=== PATIENT | male | born 1940 | race Caucasian/White ===

== ENCOUNTER 2016-06-08 23:27 | Emergency (ER) | payer MEDICARE ==
[2016-06-08 23:38] VITALS: BP 182/73; PULSE 66; RESP 18; TEMP 98
[2016-06-09] MEDS ORDERED: OXYMETAZOLINE 0.05% NASL SPRAY 15 ML NASAL STA
--- NOTE | 2016-06-09 00:04 | ED ---
General Adult HPI - General Chief complaint: ENT Stated complaint: Nosebleed Time Seen by Provider: 06/08/16 23:40 Source: patient, RN notes reviewed Mode of arrival: wheelchair Limitations: no limitations - History of Present Illness Initial comments: This is a 75yo male who presents with epistaxis [id number]. Patient states this was not provoked and patient gets nosebleeds proximately once per week. Patient is not on any anticoagulants. Patient states the bleeding has been steady, but not heavy. PAtient has been applying pressure to this area. Patient denies any headache, shortness of breath, nausea/vomiting/diarrhea. Patient denies any recent fever/chills, chest pain, hematuria, visual changes, abdominal pain, cough, or congestion. - Related Data Home Medications Medication Instructions Recorded Confirmed Diltiazem Cd [Cardizem CD] 240 mg PO DAILY 07/28/15 04/19/16 Nebivolol HCl [Bystolic] 10 mg PO DAILY 07/28/15 04/19/16 Fluticasone Nasal [place] [Flonase 2 spr EA NOSTRIL BID 04/19/16 04/19/16 Nasal [place]] Glimepiride [Amaryl] 4 mg PO BID 04/19/16 04/19/16 Multivitamins, Thera [Multivitamin] 1 tab PO DAILY 04/19/16 04/19/16 Omeprazole 20 mg PO BID 04/19/16 04/19/16 Allergies Allergy/AdvReac Type Severity Reaction Status Date / Time No Known Allergies Allergy Verified 06/08/16 23:38 Review of Systems ROS Statement: Those systems with pertinent positive or pertinent negative responses have been documented in the HPI. ROS Other: All systems not noted in ROS Statement are negative. Past Medical History Past Medical History: Diabetes Mellitus, Hypertension, Rheumatoid Arthritis (RA) Additional Past Medical History / Comment(s): bladder cancer and skin cancer History of Any Multi-Drug Resistant Organisms: None Reported Past Surgical History: Tonsillectomy Additional Past Surgical History / Comment(s): pt. states he has had skin cancer removed from his face, appendectomy, bladder cancer with cystoscopy, colonoscopy, tonsillectomy and adenoidectomy. Past Anesthesia/Blood Transfusion Reactions: No Reported Reaction Past Psychological History: No Psychological Hx Reported Smoking Status: Never smoker Past Alcohol Use History: None Reported Additional Past Alcohol Use History / Comment(s): pt. states he drinks beer every couple weeks Past Drug Use History: None Reported - Past Family History Mother Family Medical History: Cancer Additional Family Medical History / Comment(s): breast cancer Father Family Medical History: Coronary Artery Disease (CAD), Myocardial Infarction ([place] ) Brother(s) Family Medical History: No Reported History Daughter(s) Family Medical History: No Reported History General Exam - General Exam Comments Initial Comments: General: The patient is awake and alert, in no distress, and does not appear acutely ill. Eyes: Pupils are equal, round and reactive to light, extra-ocular movements are intact. No nystagmus. There is normal conjunctiva bilaterally. No signs of icterus Ears: TMs pink and pearly with intact cone of light bilaterally, normal external ear canals NOse: mild epistaxis to the right nasal turbinate, no obvious source of bleeding , no epistaxis to the left nasal turbinate. Mouth/Throat: mild bloody drainage to the posterior pharynx from epistaxis, no erythema or tonsiallar enlargement. Moist mucus membranes and no oral lesions. Neck: neck supple, no masses, no tenderness, no jvd Cardiovascular: regular rate and rhythm, normal S1/S2. no murmurs/rubs/gallops Lungs: clear to auscultation bilaterally, breath sounds equal, no wheezes/ rhonchi/rales Musculoskeletal: Normal ROM, no tenderness. Strength 5/5. Sensation intact. Pulses equal bilaterally 2+. Neurological: A&O x 3. CN II-XII intact, There are no obvious motor or sensory deficits. Coordination appears grossly intact. Speech is normal. Psychiatric: Cooperative, appropriate mood & affect, normal judgment. Limitations: no limitations Course Vital Signs 06/08/16 23:34 Temperature 98.0 F Pulse Rate 66 Respiratory 18 Rate Blood Pressure 182/73 O2 Sat by Pulse 96 Oximetry Medical Decision Making - Medical Decision Making This is a 75yo male who presents with epistaxis [id number]. Patient is not on any blood thinners. On physical exam there is blood present in the right nasal turbinate and mild bloody drainage to the posterior pharynx. Patient is neurologically intact. A nasal clamp was applied after Afrin nasal spray. After 20 minutes the bleeding was stopped. On physical exam of the nose there was no active bleeding. Patient was observed for another 20 minutes to ensure hemostasis was achieved. Discussed that if bleeding reoccurs apply steady pressure to the nose for at least 20min and respray with afrin. Discussed avodiance of nasal trauma or blowing the nose. Please use Afrin as prescribed: 2 sprays to affected nostril twice daily. Do not use longer than 2 days. Discussed rebound effect after 2 days of use. Discussed that patient should follow up with PCP in one to 2 days or return to the [facility] for any worsening symptoms or for any further concerns. Patient was receptive to this plan and patient will be discharged home. Disposition Clinical Impression: Epistaxis Disposition: HOME SELF-CARE Condition: Good Instructions: Nosebleed (ED) Additional Instructions: If bleeding reoccurs apply steady pressure to the nose with nasal clamp for at least 20 minutes, respray the nose with afrin and use clamp again for at least 20 min. Come back to [facility] if bleeding does not stop after these attempts. Please use Afrin as prescribed: 2 sprays to affected nostril twice daily. Do not use longer than 2 days. Please use medication as discussed. Please follow-up with family doctor in the next 2 days of symptoms have not improved. Please return to emergency room if the symptoms increase or worsen or for any other concerns. Referrals: Shelley Partida DO [Primary Care Provider] - 1-2 days Time of Disposition: 00:57
== END 2016-06-09 01:10 | disposition home or self-care (01) ==
LOC: EC 23:27
DX: R04.0 Epistaxis (principal); E11.9 Type 2 diabetes mellitus without complications; I10 Essential (primary) hypertension; Z79.84 Long term (current) use of oral hypoglycemic drugs; Z79.899 Other long term (current) drug therapy
CPT/HCPCS: 99283

== ENCOUNTER 2016-06-14 08:53 | Inpatient (IN) | payer MEDICARE ==
[2016-06-14] MEDS ORDERED: ONDANSETRON 4 MG/2 ML VIAL IVP STA (09:38)
[2016-06-14] MEDS ORDERED: SODIUM CHLORIDE 0.9% 1,000 ML IV STA ×2 (09:38)
--- NOTE | 2016-06-14 09:42 | ED ---
Weakness HPI - General Chief complaint: Weakness Stated complaint: weakness Time Seen by Provider: 06/14/16 09:20 Source: patient, family, RN notes reviewed, old records reviewed Mode of arrival: wheelchair Limitations: no limitations - History of Present Illness Initial comments: This is a 75-year-old male with a history of vocal cord paralysis recent nosebleeds who is here for his third visit in the last week complaining of not feeling well. He's had cough with yellow phlegm generalized weakness decreased oral intake. He states food does not taste good. He's also had nausea vomiting and some diarrhea over last 2 days. No overt chest pain he denies any fevers chills or sweats however. No focal weakness was upper or lower extremities just generalized weakness. MD Complaint: generalized weakness - Related Data Home Medications Medication Instructions Recorded Confirmed Diltiazem Cd [Cardizem CD] 240 mg PO DAILY 07/28/15 06/14/16 Nebivolol HCl [Bystolic] 10 mg PO DAILY 07/28/15 06/14/16 Fluticasone Nasal [place] [Flonase 2 spr EA NOSTRIL BID 04/19/16 06/14/16 Nasal [place]] Glimepiride [Amaryl] 4 mg PO BID 04/19/16 06/14/16 Multivitamins, Thera [Multivitamin] 1 tab PO DAILY 04/19/16 06/14/16 Omeprazole 20 mg PO BID 04/19/16 06/14/16 Allergies Allergy/AdvReac Type Severity Reaction Status Date / Time No Known Allergies Allergy Verified 06/14/16 09:04 Review of Systems ROS Statement: Those systems with pertinent positive or pertinent negative responses have been documented in the HPI. ROS Other: All systems not noted in ROS Statement are negative. Past Medical History Past Medical History: Diabetes Mellitus, Hypertension, Rheumatoid Arthritis (RA) Additional Past Medical History / Comment(s): bladder cancer and skin cancer History of Any Multi-Drug Resistant Organisms: None Reported Past Surgical History: Tonsillectomy Additional Past Surgical History / Comment(s): pt. states he has had skin cancer removed from his face, appendectomy, bladder cancer with cystoscopy, colonoscopy, tonsillectomy and adenoidectomy. Past Anesthesia/Blood Transfusion Reactions: No Reported Reaction Past Psychological History: No Psychological Hx Reported Smoking Status: Never smoker Past Alcohol Use History: None Reported Additional Past Alcohol Use History / Comment(s): pt. states he drinks beer every couple weeks Past Drug Use History: None Reported - Past Family History Mother Family Medical History: Cancer Additional Family Medical History / Comment(s): breast cancer Father Family Medical History: Coronary Artery Disease (CAD), Myocardial Infarction ([place] ) Brother(s) Family Medical History: No Reported History Daughter(s) Family Medical History: No Reported History General Exam - General Exam Comments Initial Comments: This is a well-developed well-nourished awake alert oriented 3 male Limitations: no limitations General appearance: alert, in no apparent distress, lethargic Head exam: Present: atraumatic, normocephalic, normal inspection Eye exam: Present: normal appearance, PERRL, EOMI. Absent: scleral icterus, conjunctival injection, periorbital swelling ENT exam: Present: mucous membranes dry Neck exam: Present: normal inspection. Absent: tenderness, meningismus, lymphadenopathy Respiratory exam: Present: normal lung sounds bilaterally. Absent: respiratory distress, wheezes, rales, rhonchi, stridor Cardiovascular Exam: Present: regular rate, normal rhythm, normal heart sounds. Absent: systolic murmur, diastolic murmur, rubs, gallop, clicks GI/Abdominal exam: Present: soft, normal bowel sounds. Absent: distended, tenderness, guarding, rebound, rigid Extremities exam: Present: normal inspection, full ROM, normal capillary refill. Absent: tenderness, pedal edema, joint swelling, calf tenderness Back exam: Present: normal inspection Neurological exam: Present: alert, oriented X3, CN II-XII intact Psychiatric exam: Present: normal affect, normal mood Skin exam: Present: warm, dry, intact, normal color. Absent: rash Course Vital Signs 06/14/16 06/14/16 06/14/16 08:55 09:42 09:54 Temperature 98.7 F Pulse Rate 88 89 Pulse Rate [ 86 [place] ] Respiratory 15 Rate Blood Pressure 163/74 143/78 O2 Sat by Pulse 96 95 Oximetry 06/14/16 06/14/16 06/14/16 10:57 11:57 12:58 Temperature Pulse Rate 85 81 97 Pulse Rate [ [place] ] Respiratory 18 16 18 Rate Blood Pressure 150/69 142/70 107/53 O2 Sat by Pulse 989 H 95 99 Oximetry 06/14/16 14:23 Temperature Pulse Rate 82 Pulse Rate [ [place] ] Respiratory 16 Rate Blood Pressure 170/88 O2 Sat by Pulse 99 Oximetry EKG Findings - EKG Results: EKG: interpreted by ANGELICA, sinus rhythm (Sinus rhythm of 90 [place] interval 186 mormonism 96 QT/QTC of 394/[address]-T wave changes question will anterior changes noted) Medical Decision Making - Medical Decision Making I did discuss the findings with the patient and family members. Also with the admitting physician. Patient will be admitted - Lab Data Result diagrams: 06/14/16 09:50 06/14/16 09:50 Lab Results 06/14/16 06/14/16 06/14/16 Range/Units 09:50 09:50 09:50 WBC 1.4 L* (3.8-10.6) k/uL RBC 2.79 L (4.30-5.90) m/uL Hgb 9.4 L D (13.0-17.5) gm/dL Hct 26.8 L (39.0-53.0) % MCV 96.0 (80.0-100.0) fL MCH 33.6 (25.0-35.0) pg MCHC 35.0 (31.0-37.0) g/dL RDW 19.5 H (11.5-15.5) % Plt Count 7 L* D (150-450) k/uL Neutrophils % 50 % Lymphocytes % 40 % Monocytes % 4 % Eosinophils % 3 % Basophils % 1 % Neutrophils # 0.7 L (1.3-7.7) k/uL Lymphocytes # 0.6 L (1.0-4.8) k/uL Monocytes # 0.1 (0-1.0) k/uL Eosinophils # 0.0 (0-0.7) k/uL Basophils # 0.0 (0-0.2) k/uL Manual Slide Review Performed Polychromasia Present Hyperchromasia Moderate Poikilocytosis Moderate Anisocytosis Slight Macrocytosis Slight PT (9.0-12.0) sec INR (<1.1) APTT (22.0-30.0) sec Sodium (137-145) mmol/L Potassium (3.5-5.1) mmol/L Chloride (98-107) mmol/L Carbon Dioxide (22-30) mmol/L Anion Gap mmol/L BUN (9-20) mg/dL Creatinine (0.66-1.25) mg/dL Est GFR (MDRD) Af Amer (>60 ml/min/1.73 sqM) Est GFR (MDRD) Non-Af (>60 ml/min/1.73 sqM) Glucose (74-99) mg/dL POC Glucose (mg/dL) (75-99) mg/dL POC Glu Forensic Sergeant ID Plasma Lactic Acid Jordin (0.7-2.0) mmol/L Calcium (8.4-10.2) mg/dL Magnesium (1.6-2.3) mg/dL Total Bilirubin (0.2-1.3) mg/dL AST (17-59) U/L ALT (21-72) U/L Alkaline Phosphatase (38-126) U/L Total Creatine Kinase 62 (55-170) U/L CK-MB (CK-2) 1.2 (0.0-2.4) ng/mL CK-MB (CK-2) Rel Index 1.9 Troponin I <0.012 (0.000-0.034) ng/mL NT-Pro-B Natriuret Pep 432 pg/mL Total Protein (6.3-8.2) g/dL Albumin (3.5-5.0) g/dL Urine Color Urine Appearance (Clear) Urine pH (5.0-8.0) Ur Specific [place] (1.001-1.035) Urine Protein (Negative) Urine Glucose (UA) (Negative) Urine Ketones (Negative) Urine Blood (Negative) Urine Nitrate (Negative) Urine Bilirubin (Negative) Urine Urobilinogen (<2.0) mg/dL Ur Leukocyte Esterase (Negative) Urine RBC (0-5) /hpf Urine WBC (0-5) /hpf Urine Mucus (None) /hpf 06/14/16 06/14/16 06/14/16 Range/Units 09:50 09:50 09:50 WBC (3.8-10.6) k/uL RBC (4.30-5.90) m/uL Hgb (13.0-17.5) gm/dL Hct (39.0-53.0) % MCV (80.0-100.0) fL MCH (25.0-35.0) pg MCHC (31.0-37.0) g/dL RDW (11.5-15.5) % Plt Count (150-450) k/uL Neutrophils % % Lymphocytes % % Monocytes % % Eosinophils % % Basophils % % Neutrophils # (1.3-7.7) k/uL Lymphocytes # (1.0-4.8) k/uL Monocytes # (0-1.0) k/uL Eosinophils # (0-0.7) k/uL Basophils # (0-0.2) k/uL Manual Slide Review Polychromasia Hyperchromasia Poikilocytosis Anisocytosis Macrocytosis PT 13.6 H (9.0-12.0) sec INR 1.4 (<1.1) APTT 22.8 (22.0-30.0) sec Sodium 144 (137-145) mmol/L Potassium 3.3 L (3.5-5.1) mmol/L Chloride 104 (98-107) mmol/L Carbon Dioxide 25 (22-30) mmol/L Anion Gap 15 mmol/L BUN 35 H (9-20) mg/dL Creatinine 1.07 (0.66-1.25) mg/dL Est GFR (MDRD) Af Amer >60 (>60 ml/min/1.73 sqM) Est GFR (MDRD) Non-Af >60 (>60 ml/min/1.73 sqM) Glucose 190 H (74-99) mg/dL POC Glucose (mg/dL) (75-99) mg/dL POC Glu Forensic Sergeant ID Plasma Lactic Acid Jordin 2.0 (0.7-2.0) mmol/L Calcium 9.0 (8.4-10.2) mg/dL Magnesium 1.6 (1.6-2.3) mg/dL Total Bilirubin 1.2 (0.2-1.3) mg/dL AST 30 (17-59) U/L ALT 29 (21-72) U/L Alkaline Phosphatase 80 (38-126) U/L Total Creatine Kinase (55-170) U/L CK-MB (CK-2) (0.0-2.4) ng/mL CK-MB (CK-2) Rel Index Troponin I (0.000-0.034) ng/mL NT-Pro-B Natriuret Pep pg/mL Total Protein 6.5 (6.3-8.2) g/dL Albumin 3.9 (3.5-5.0) g/dL Urine Color Urine Appearance (Clear) Urine pH (5.0-8.0) Ur Specific [place] (1.001-1.035) Urine Protein (Negative) Urine Glucose (UA) (Negative) Urine Ketones (Negative) Urine Blood (Negative) Urine Nitrate (Negative) Urine Bilirubin (Negative) Urine Urobilinogen (<2.0) mg/dL Ur Leukocyte Esterase (Negative) Urine RBC (0-5) /hpf Urine WBC (0-5) /hpf Urine Mucus (None) /hpf 06/14/16 06/14/16 Range/Units 09:52 11:41 WBC (3.8-10.6) k/uL RBC (4.30-5.90) m/uL Hgb (13.0-17.5) gm/dL Hct (39.0-53.0) % MCV (80.0-100.0) fL MCH (25.0-35.0) pg MCHC (31.0-37.0) g/dL RDW (11.5-15.5) % Plt Count (150-450) k/uL Neutrophils % % Lymphocytes % % Monocytes % % Eosinophils % % Basophils % % Neutrophils # (1.3-7.7) k/uL Lymphocytes # (1.0-4.8) k/uL Monocytes # (0-1.0) k/uL Eosinophils # (0-0.7) k/uL Basophils # (0-0.2) k/uL Manual Slide Review Polychromasia Hyperchromasia Poikilocytosis Anisocytosis Macrocytosis PT (9.0-12.0) sec INR (<1.1) APTT (22.0-30.0) sec Sodium (137-145) mmol/L Potassium (3.5-5.1) mmol/L Chloride (98-107) mmol/L Carbon Dioxide (22-30) mmol/L Anion Gap mmol/L BUN (9-20) mg/dL Creatinine (0.66-1.25) mg/dL Est GFR (MDRD) Af Amer (>60 ml/min/1.73 sqM) Est GFR (MDRD) Non-Af (>60 ml/min/1.73 sqM) Glucose (74-99) mg/dL POC Glucose (mg/dL) 199 H (75-99) mg/dL POC Glu Forensic Sergeant ID Antione Ashley Plasma Lactic Acid Jordin (0.7-2.0) mmol/L Calcium (8.4-10.2) mg/dL Magnesium (1.6-2.3) mg/dL Total Bilirubin (0.2-1.3) mg/dL AST (17-59) U/L ALT (21-72) U/L Alkaline Phosphatase (38-126) U/L Total Creatine Kinase (55-170) U/L CK-MB (CK-2) (0.0-2.4) ng/mL CK-MB (CK-2) Rel Index Troponin I (0.000-0.034) ng/mL NT-Pro-B Natriuret Pep pg/mL Total Protein (6.3-8.2) g/dL Albumin (3.5-5.0) g/dL Urine Color Yellow Urine Appearance Clear (Clear) Urine pH 5.5 (5.0-8.0) Ur Specific [place] 1.016 (1.001-1.035) Urine Protein Trace H (Negative) Urine Glucose (UA) Negative (Negative) Urine Ketones Negative (Negative) Urine Blood Trace H (Negative) Urine Nitrate Negative (Negative) Urine Bilirubin Negative (Negative) Urine Urobilinogen <2.0 (<2.0) mg/dL Ur Leukocyte Esterase Negative (Negative) Urine RBC <1 (0-5) /hpf Urine WBC 1 (0-5) /hpf Urine Mucus Rare H (None) /hpf - Radiology Data Radiology results: report reviewed (I did reveal the imaging and reports no acute findings are seen.), image reviewed Disposition Clinical Impression: Neutropenia, Thrombocytopenia, Failure to thrive, Weakness Disposition: ADMITTED IP TO THIS HOSP Condition: Stable
[2016-06-14 09:59] LABS: Glucose,Whole Blood 199 mg/dL (75-99)
--- NOTE | 2016-06-14 10:13 | XR ---
EXAMINATION TYPE: XR chest 2V DATE OF EXAM: 06/14/2016 10:08 AM COMPARISON: 04/19/2016 HISTORY: 75-year-old male with weakness and shortness of breath today TECHNIQUE: AP and lateral views FINDINGS: Heart remains borderline enlarged. Slightly low lung volumes crowding the vascular markings with stra ndy left greater right bibasilar atelectasis. Calcified hilar and right paratracheal lymph nodes comp atible with prior granulomatous disease. No consolidation or pleural effusion. IMPRESSION: Stable exam with prior granulomatous disease, some hypoventilatory changes, and strandy atelectasis a t the lung bases. No acute process seen.
[2016-06-14 10:16] LABS: ALT 29 U/L (21-72); AST 30 U/L (17-59); Alkaline Phosphatase 80 U/L (38-126); Anion Gap 15 mmol/L; Anisocytosis Slight; Basophils % (A) 1 %; Blood Urea Nitrogen 35 mg/dL (9-20); CH 36.2; Carbon Dioxide 25 mmol/L (22-30); Chloride 104 mmol/L (98-107); Eosinophils % (A) 3 %; Glucose 190 mg/dL (74-99); HCT 26.8 % (39.0-53.0); HDW 4.06; Hyperchromasia Moderate; Immature Gran Flag Marked; Luc # (Auto) 0.03; Luc % (Auto) 2; Lymphocytes # (A) 0.6 k/uL (1.0-4.8); Lymphocytes % (A) 40 %; MCH 33.6 pg (25.0-35.0); Macrocytosis Slight; Magnesium 1.6 mg/dL (1.6-2.3); Mean Platelet Volume 8.3; Monocytes # (A) 0.1 k/uL (0-1.0); Monocytes % (A) 4 %; Neutrophils # (A) 0.7 k/uL (1.3-7.7); Neutrophils % (A) 50 %; Non-African American GFR(MDRD) >60 (>60 ml/min/1.73 sqM); Poikilocytosis Moderate; Potassium 3.3 mmol/L (3.5-5.1); RBC 2.79 m/uL (4.30-5.90); RDW 19.5 % (11.5-15.5); Sodium 144 mmol/L (137-145); Total Bilirubin 1.2 mg/dL (0.2-1.3); Total Protein 6.5 g/dL (6.3-8.2); WBC (Perox) 1.42
[2016-06-14 10:19] LABS: HGB 9.4 gm/dL (13.0-17.5)
[2016-06-14 10:21] LABS: WBC 1.4 k/uL (3.8-10.6)
[2016-06-14 10:27] LABS: Manual Review Performed
[2016-06-14 10:28] LABS: Polychromasia Present
[2016-06-14 10:50] LABS: Troponin I <0.012 ng/mL (0.000-0.034)
[2016-06-14 10:54] LABS: INR 1.4 (<1.1); Partial Thromboplastin Time 22.8 sec (22.0-30.0); Prothrombin Time 13.6 sec (9.0-12.0)
[2016-06-14 10:56] LABS: Creatine Kinase 62 U/L (55-170)
[2016-06-14 11:10] LABS: Creatine Kinase MB 1.2 ng/mL (0.0-2.4)
[2016-06-14 12:05] LABS: Appearance,Urine Clear (Clear); Bilirubin,Urine Negative (Negative); Glucose,Urine (UA) Negative (Negative); Ketones,Urine Negative (Negative); Leukocyte Esterase,Urine Negative (Negative); Mucus,Urine Rare /hpf; Nitrite,Urine Negative (Negative); PH, Urine 5.5 (5.0-8.0); Particle Count 1346; Protein,Urine Trace (Negative); RBC,Urine <1 /hpf (0-5); Specific Gravity,Urine 1.016 (1.001-1.035); UA Billing (MACRO vs. MICRO) MICRO; Urobilinogen,Urine <2.0 mg/dL (<2.0); WBC,Urine 1 /hpf (0-5)
--- NOTE | 2016-06-14 13:43 | CT ---
EXAMINATION TYPE: CT brain wo con DATE OF EXAM: 06/14/2016 1:35 PM COMPARISON: 02/04/2016 HISTORY: 75-year-old male with neck pain and headache after fall on ice TECHNIQUE: Examination was done in axial plane without intravenous contrast. Coronal and sagittal reconstructio ns performed. CT DLP: 1328.24 mGycm Automated exposure control for dose reduction was used. FINDINGS: There is no evidence of acute intracranial hemorrhage, acute ischemic changes, mass, mass-effect, or extra-axial fluid collection. There is no effacement of cerebral sulci or basal subarachnoid cister ns. There is no hydrocephalus. There is no midline shift. Swenson-white matter distinction is preserv ed. 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 Mild patchy periventricular white matte r hypodensity suggests changes of chronic small vessel ischemic disease. Incidental megacisterna magn a. Paranasal sinuses show minimal mucosal thickening in the left maxillary sinus. Mastoid air cells well pneumatized. Orbits and globes are intact. IMPRESSION: No acute intracranial abnormality seen. 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
[2016-06-14] MEDS ORDERED: NALOXONE 0.4 MG/ML 1 ML VIAL IV PRN (14:52)
[2016-06-14] MEDS: ACETAMINOPHEN TAB 325 MG TAB PO PRN (18:12)
[2016-06-14] MEDS: GLIMEPIRIDE 4 MG TAB PO SCH (18:54)
[2016-06-14] MEDS: PANTOPRAZOLE 40 MG TABLET PO SCH (18:54)
[2016-06-14] MEDS: FLUTICASONE 50MCG/SPRAY NASAL 16GM EA NOSTRIL SCH (20:06)
[2016-06-14] MEDS: SODIUM CHLORIDE 0.9% 1,000 ML IV SCH (20:07)
[2016-06-14 20:16] LABS: Glucose,Whole Blood 195 mg/dL (75-99)
[2016-06-15] MEDS: SODIUM CHLORIDE 0.9% 1,000 ML IV SCH ×2 (06:16→21:11)
[2016-06-15 08:11] LABS: Glucose,Whole Blood 150 mg/dL (75-99)
[2016-06-15] MEDS: GLIMEPIRIDE 4 MG TAB PO SCH ×2 (08:18→17:40)
[2016-06-15] MEDS: PANTOPRAZOLE 40 MG TABLET PO SCH ×2 (08:18→17:40)
[2016-06-15] MEDS: FLUTICASONE 50MCG/SPRAY NASAL 16GM EA NOSTRIL SCH ×2 (08:19→21:11)
[2016-06-15] MEDS: NEBIVOLOL 5 MG TAB PO SCH (08:19)
[2016-06-15] MEDS: DILTIAZEM CD 240 MG CAP.ER.24H PO SCH (08:19)
[2016-06-15] MEDS ORDERED: ONDANSETRON 4 MG/2 ML VIAL IVP PRN (10:42)
--- NOTE | 2016-06-15 11:00 | P.HPIM ---
History of Present Illness H&P Date: 06/15/16 Chief Complaint: Generalized weakness with nausea vomiting and diarrhea This is a 75-year-old male, patient of [facility]. He has a known past medical history of bladder cancer in which she received chemotherapy about 3 years ago. He also has a known history of vocal cord paralysis in which she required surgery, diabetes mellitus, hypertension and rheumatoid arthritis. Patient presents to the emergency room after having nausea vomiting and diarrhea over the last 3 days. He also notes that since this past summer he's been dealing with weakness and easy bruising. On admission patient was found to have a white count of 1.4 hemoglobin of 9.4 and platelets of 7. Also evidence of dehydration with a BUN of 35 and creatinine of 1.07. Patient denies any previous history of thrombocytopenia or leukopenia. Denies any bleeding disorders. He does report having a bloody nose on June 09 he came into the emergency room for treatment. His vomiting and diarrhea have resolved. Last episodes were last night. Patient denies any fevers chills or sweats. Denies any chest pain or shortness of breath. Denies any burning with urination. Patient reports decrease in appetite due to the vocal cord surgery affecting his taste buds. Patient reports having colonoscopy a few months ago reporting is normal. Review of Systems Please refer to HPI otherwise unremarkable Past Medical History Past Medical History: Cancer, Diabetes Mellitus, GERD/Reflux, Hypertension, Pneumonia, Prostate Disorder, Rheumatoid Arthritis (RA), Sleep Apnea/CPAP/BIPAP Additional Past Medical History / Comment(s): bladder cancer HAD CHEMO TX AT [facility]. skin cancer REMOVED, SHINGLES- 20 YEARS AGO, DOES'NT USE HIS CPAP MACHINE ANYMORE. ?"IRREG HEART BEATOLD BY ONE DR HE HAD AND ANOTHER DR TOLD HIM HE DID'NT" History of Any Multi-Drug Resistant Organisms: None Reported Past Surgical History: Tonsillectomy Additional Past Surgical History / Comment(s): pt. states he has had skin cancer removed from his face, appendectomy, bladder cancer with cystoscopy, colonoscopy, tonsillectomy and adenoidectomy.SX FOR RT VOCAL CORD PARALYSIS.PT STATED HAD FLU/PNE/SHINGLES/TDAP BUT NOT SURE OF DATES-DR OFFICE CLOSED AT TIME OF THIS ADMIT. Past Anesthesia/Blood Transfusion Reactions: No Reported Reaction Past Psychological History: No Psychological Hx Reported Smoking Status: Never smoker Past Alcohol Use History: Occasional Additional Past Alcohol Use History / Comment(s): pt. states he drinks beer every couple weeks Past Drug Use History: None Reported - Past Family History Mother Family Medical History: Cancer Additional Family Medical History / Comment(s): breast cancer Father Family Medical History: Coronary Artery Disease (CAD), Myocardial Infarction (RI ) Brother(s) Family Medical History: No Reported History Daughter(s) Family Medical History: No Reported History Medications and Allergies Home Medications Medication Instructions Recorded Confirmed Type Diltiazem Cd [Cardizem CD] 240 mg PO DAILY 07/28/15 06/14/16 History Nebivolol HCl [Bystolic] 10 mg PO DAILY 07/28/15 06/14/16 History Fluticasone Nasal [place] [Flonase 2 spr EA NOSTRIL BID 04/19/16 06/14/16 History Nasal [place]] Glimepiride [Amaryl] 4 mg PO BID 04/19/16 06/14/16 History Multivitamins, Thera [Multivitamin] 1 tab PO DAILY 04/19/16 06/14/16 History Omeprazole 20 mg PO BID 04/19/16 06/14/16 History Allergies Allergy/AdvReac Type Severity Reaction Status Date / Time No Known Allergies Allergy Verified 06/14/16 09:04 Physical Exam Vitals: Vital Signs Temp Pulse Pulse Resp BP Pulse Ox 06/15/16 09:19 94 L 06/15/16 07:00 97.8 F 79 20 179/82 94 L 06/15/16 06:00 93 L 06/14/16 23:00 98.8 F 16 144/67 98 06/14/16 16:48 99.9 F H 82 18 139/63 99 Intake and Output 06/14/16 06/15/16 06/15/16 22:59 06:59 14:59 Intake Total 320 640 Balance 320 640 Intake: IV 320 640 Sodium Chloride 0.9% 1, 320 640 000 ml @ 80 mls/hr IV . [id number] [facility] Rx#:[id number] Other: Voiding Method Toilet Toilet Toilet Urinal Urinal # Voids 1 # Bowel Movements 1 Head normocephalic Neck supple Lungs clear to auscultation bilaterally no wheezing or crackles Heart regular rate and rhythm S1-S2, no rub or gallop Abdomen is soft nontender nondistended positive bowel sounds no hepatosplenomegaly Extremities no edema Neuro alert and orientated to 3 Results CBC & Chem 7: 06/14/16 09:50 06/14/16 09:50 Labs: Abnormal Lab Results - Last 24 Hours (Table) 06/14/16 06/15/16 Range/Units 20:11 08:07 POC Glucose (mg/dL) 195 H 150 H (75-99) mg/dL Thrombosis Risk Factor Assmnt - Choose All That Apply Any of the Below Risk Factors Present?: Yes Each Factor Represents 1 point: Obesity (BMI >25) Other Risk Factors: Yes Each Risk Factor Represents 3 Points: Age 75 years or older Other congenital or acquired thrombophilia - If yes, enter type in comment: No Thrombosis Risk Factor Assessment Total Risk Factor Score: 4 Thrombosis Risk Factor Assessment Level: Moderate Risk Assessment and Plan Plan: 1. Pancytopenia exact etiology unclear. Patient will be evaluated by hematology. Patient does have a previous history of bladder cancer with chemo treatment about 3 years ago. White count 1.4, hemoglobin 9.4 platelets of 7 on admission 2. Nausea vomiting and diarrhea 3 days. Symptoms have resolved. Continue the Zofran as needed. Possibly due to a gastroenteritis. Continue to monitor. LFTs are normal. Check amylase and lipase. 3. Generalized weakness: Multifactorial due to the vomiting and diarrhea and pancytopenia. Computed tomography scan of the brain shows no acute intracranial abnormality. 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 Consult PT OT 4. Headache reported in the emergency room now resolved. Computed tomography scan of the brain no acute 5. Essential hypertension with accelerated hypertension this morning. Blood pressure taken before medications given. We'll have blood pressure repeated. Continue his Bystolic and Cardizem 6. Diabetes mellitus type 2 continue the Amaryl with sliding scale coverage 7. 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 Surgery completed in fall 2015. Patient reports there are no findings cancer. 8. History of rheumatoid arthritis GI prophylaxis Protonix and DVT prophylaxis SCDs Time with Patient: Greater than 30 (Greater than 50% of the total time spent in counseling and coordination of care.I performed an examination of the patient and discussed their management with the physician Public Message Service Supervisor. I have reviewed the Physician Public Message Service Supervisor's notes and agree with the documented findings and plan of care)
[2016-06-15 11:17] LABS: Anisocytosis Slight; CH 35.5; CHCM 36.3; HCT 22.5 % (39.0-53.0); HDW 4.06; Hyperchromasia Slight; Immature Gran Flag Marked; MCH 35.1 pg (25.0-35.0); MCHC 35.6 g/dL (31.0-37.0); MCV 98.7 fL (80.0-100.0); Macrocytosis Slight; Poikilocytosis Moderate; RBC 2.28 m/uL (4.30-5.90); RDW 19.6 % (11.5-15.5)
[2016-06-15 11:30] LABS: WBC 1.3 k/uL (3.8-10.6)
[2016-06-15 11:46] LABS: ALT 29 U/L (21-72); AST 22 U/L (17-59); Alkaline Phosphatase 64 U/L (38-126); Anion Gap 8 mmol/L; Blood Urea Nitrogen 24 mg/dL (9-20); Calcium 8.2 mg/dL (8.4-10.2); Carbon Dioxide 28 mmol/L (22-30); Chloride 106 mmol/L (98-107); Glucose 146 mg/dL (74-99); Non-African American GFR(MDRD) >60 (>60 ml/min/1.73 sqM); Potassium 3.3 mmol/L (3.5-5.1); Sodium 142 mmol/L (137-145); Total Bilirubin 0.8 mg/dL (0.2-1.3); Total Protein 5.5 g/dL (6.3-8.2)
[2016-06-15] MEDS ORDERED: PHYTONADIONE ORAL 5 MG/5 ML ORAL.SYRG PO STA (12:25)
--- NOTE | 2016-06-15 12:31 | P.PN ---
Subjective Principal diagnosis: Consulted for pancytopenia Pt was not seen but Nursing contacted Hematology with critical labs. Orders given and multiple labs have been ordered. Pt will be seen in am for formal consult. Objective - Vital Signs Vital signs: Vital Signs Temp 97.8 F 06/15/16 07:00 Pulse 79 06/15/16 07:00 Resp 20 06/15/16 07:00 BP 179/82 06/15/16 07:00 Pulse Ox 94 L 06/15/16 09:19 Intake & Output 06/14/16 06/15/16 06/15/16 18:59 06:59 18:59 Intake Total 960 Balance 960 Intake: IV 960 Sodium Chloride 0.9% 1, 960 000 ml @ 80 mls/hr IV . [id number] [facility] Rx#:[id number] Other: Voiding Method Urinal Toilet Toilet Urinal Urinal # Voids 1 # Bowel Movements 1 - Labs CBC & Chem 7: 06/15/16 10:57 06/15/16 10:57 Labs: Abnormal Lab Results - Last 24 Hours (Table) 06/14/16 06/15/16 06/15/16 Range/Units 20:11 08:07 10:57 WBC 1.3 L* (3.8-10.6) k/uL RBC 2.28 L (4.30-5.90) m/uL Hgb 8.0 L (13.0-17.5) gm/dL Hct 22.5 L (39.0-53.0) % MCH 35.1 H (25.0-35.0) pg RDW 19.6 H (11.5-15.5) % Plt Count 5 L* (150-450) k/uL Potassium (3.5-5.1) mmol/L BUN (9-20) mg/dL Glucose (74-99) mg/dL POC Glucose (mg/dL) 195 H 150 H (75-99) mg/dL Calcium (8.4-10.2) mg/dL Total Protein (6.3-8.2) g/dL Albumin (3.5-5.0) g/dL 06/15/16 Range/Units 10:57 WBC (3.8-10.6) k/uL RBC (4.30-5.90) m/uL Hgb (13.0-17.5) gm/dL Hct (39.0-53.0) % MCH (25.0-35.0) pg RDW (11.5-15.5) % Plt Count (150-450) k/uL Potassium 3.3 L (3.5-5.1) mmol/L BUN 24 H (9-20) mg/dL Glucose 146 H (74-99) mg/dL POC Glucose (mg/dL) (75-99) mg/dL Calcium 8.2 L (8.4-10.2) mg/dL Total Protein 5.5 L (6.3-8.2) g/dL Albumin 3.1 L (3.5-5.0) g/dL Assessment and Plan (1) Pancytopenia Narrative/Plan: Pt was to be seen by Dr. Quarles in 07/07 for pancytopenia, initial consult. Multiple labs ordered, pt given vit K and platelets. Will see pt in formal consult in AM. Status: Acute
[2016-06-15] MEDS: MULTIVITAMINS, THERA 1 EACH TAB PO SCH (12:52)
[2016-06-15] MEDS: INSULIN LISPRO (humaLOG) 300 UNIT/3 ML VIAL SQ SCH ×3 (13:00→21:11)
[2016-06-15 13:02] LABS: Glucose,Whole Blood 137 mg/dL (75-99)
[2016-06-15 13:32] LABS: Hemoglobin A1C 6.3 % (4.2-6.1)
[2016-06-15 13:45] LABS: Reticulocyte % 4.4 % (0.5-2.0)
[2016-06-15 14:05] LABS: Amylase <30 U/L (30-110)
[2016-06-15 14:55] LABS: Vitamin B12 366 pg/mL
[2016-06-15 14:59] LABS: Add Differential Manual Differential
[2016-06-15 15:02] LABS: Nucleated Red Blood Cells 0 /100 WBC (0-0); Total Cells Counted 100
[2016-06-15 15:03] LABS: Manual Review Performed
[2016-06-15] MEDS: ACETAMINOPHEN TAB 325 MG TAB PO PRN (16:32)
[2016-06-15 16:42] LABS: Glucose,Whole Blood 112 mg/dL (75-99)
[2016-06-15 19:58] LABS: Glucose,Whole Blood 67 mg/dL (75-99)
[2016-06-15 20:20] LABS: Glucose,Whole Blood 66 mg/dL (75-99)
[2016-06-15 21:12] LABS: Glucose,Whole Blood 84 mg/dL (75-99)
[2016-06-16 07:35] LABS: Anisocytosis Slight; CH 35.5; CHCM 36.2; HCT 21.2 % (39.0-53.0); HDW 4.01; HGB 7.4 gm/dL (13.0-17.5); Hyperchromasia Slight; Immature Gran Flag Marked; MCH 34.6 pg (25.0-35.0); MCHC 34.9 g/dL (31.0-37.0); MCV 99.2 fL (80.0-100.0); Macrocytosis Moderate; Mean Platelet Volume 8.1; Poikilocytosis Moderate; RBC 2.14 m/uL (4.30-5.90); RDW 19.9 % (11.5-15.5)
[2016-06-16 07:56] LABS: Glucose,Whole Blood 61 mg/dL (75-99)
[2016-06-16 07:58] LABS: ALT 34 U/L (21-72); AST 29 U/L (17-59); Alkaline Phosphatase 64 U/L (38-126); Anion Gap 11 mmol/L; Blood Urea Nitrogen 22 mg/dL (9-20); Calcium 8.5 mg/dL (8.4-10.2); Carbon Dioxide 25 mmol/L (22-30); Chloride 109 mmol/L (98-107); Glucose 63 mg/dL (74-99); LDH 734 U/L (313-618); Non-African American GFR(MDRD) >60 (>60 ml/min/1.73 sqM); Potassium 3.1 mmol/L (3.5-5.1); Sodium 145 mmol/L (137-145); Total Bilirubin 0.7 mg/dL (0.2-1.3); Total Protein 5.8 g/dL (6.3-8.2)
[2016-06-16 08:09] LABS: Glucose,Whole Blood 60 mg/dL (75-99)
[2016-06-16] MEDS ORDERED: POTASSIUM CHLORIDE ER 20 MEQ TAB.ER PO STA (08:12)
[2016-06-16 08:18] LABS: Free Kappa Lt Chain Qnt, Serum 2.49 mg/dL (0.33 - 1.94); Kappa/Lambda Light Chain Ratio 1.04 (0.26 - 1.65)
[2016-06-16 08:47] LABS: Add Differential Manual Differential
[2016-06-16 08:54] LABS: Nucleated Red Blood Cells 6 /100 WBC (0-0); Total Cells Counted 100; WBC 2.1 k/uL (3.8-10.6)
[2016-06-16 08:54] LABS: Glucose,Whole Blood 106 mg/dL (75-99)
[2016-06-16 08:55] LABS: Polychromasia Present
[2016-06-16 08:56] LABS: Tear Drop Cells Present
[2016-06-16 09:01] LABS: Rheumatoid Factor, Qnt <9 IU/mL (<12)
[2016-06-16] MEDS: INSULIN LISPRO (humaLOG) 300 UNIT/3 ML VIAL SQ SCH ×4 (09:07→21:48)
[2016-06-16] MEDS: PANTOPRAZOLE 40 MG TABLET PO SCH ×2 (09:07→17:00)
[2016-06-16] MEDS: DILTIAZEM CD 240 MG CAP.ER.24H PO SCH (09:08)
[2016-06-16] MEDS: FLUTICASONE 50MCG/SPRAY NASAL 16GM EA NOSTRIL SCH ×2 (09:08→21:49)
[2016-06-16] MEDS: NEBIVOLOL 5 MG TAB PO SCH (09:09)
[2016-06-16] MEDS: GLIMEPIRIDE 4 MG TAB PO SCH (09:23)
--- NOTE | 2016-06-16 11:53 | P.PN ---
Subjective Patient presented to the hospital with nausea vomiting diarrhea. This has resolved. Stool for C. diff negative. Also was noted to be in pancytopenia. He has received platelets. Platelet count has gone up to 8. He is scheduled for more platelets today. Hematology is following. Patient denies any further nausea or vomiting. He no further diarrhea. Did have a firm stool yesterday. Denies any chest pain or shortness breath. Denies any difficulty urinating. Objective - Vital Signs Vital signs: Vital Signs Temp 98.4 F 06/16/16 07:00 Pulse 65 06/16/16 07:00 Resp 20 06/16/16 07:00 BP 145/66 06/16/16 07:00 Pulse Ox 97 06/16/16 07:00 Intake & Output 06/15/16 06/16/16 06/16/16 18:59 06:59 18:59 Intake Total 763 1990 Output Total 300 500 Balance 463 1490 Weight 108.862 kg Intake: IV 960 Sodium Chloride 0.9% 1, 960 000 ml @ 80 mls/hr IV . [id number] [facility] Rx#:[id number] Oral 340 1030 Blood Product 423 Platelet Pheresis Acda 423 Unit [id number] Output: Urine 300 500 Other: Voiding Method Toilet Toilet Toilet Urinal Urinal Urinal # Voids 3 1 # Bowel Movements 1 # Emes[place] 0 - Exam Head normocephalic Neck supple Lungs clear to auscultation bilaterally no wheezing or crackles Heart regular rate and rhythm S1-S2, no rub or gallop Abdomen is soft nontender nondistended positive bowel sounds no hepatosplenomegaly Extremities no edema Neuro alert and orientated to 3 - Labs CBC & Chem 7: 06/16/16 07:08 06/16/16 07:08 Labs: Abnormal Lab Results - Last 24 Hours (Table) 06/15/16 06/15/16 06/15/16 Range/Units 10:57 10:57 10:57 WBC 1.3 L* (3.8-10.6) k/uL RBC 2.28 L (4.30-5.90) m/uL Hgb 8.0 L (13.0-17.5) gm/dL Hct 22.5 L (39.0-53.0) % MCH 35.1 H (25.0-35.0) pg RDW 19.6 H (11.5-15.5) % Plt Count 5 L* (150-450) k/uL Neutrophils # (Manual) 0.6 L (1.3-7.7) k/uL Lymphocytes # (Manual) 0.5 L (1.0-4.8) k/uL Nucleated RBCs (0-0) /100 WBC Retic Count (0.5-2.0) % Potassium 3.3 L (3.5-5.1) mmol/L Chloride (98-107) mmol/L BUN 24 H (9-20) mg/dL Glucose 146 H (74-99) mg/dL POC Glucose (mg/dL) (75-99) mg/dL Hemoglobin A1c 6.3 H (4.2-6.1) % Calcium 8.2 L (8.4-10.2) mg/dL Ferritin (18-464) ng/mL Lactate Dehydrogenase (313-618) U/L Total Protein 5.5 L (6.3-8.2) g/dL Total Protein (PEP) (6.2-8.2) g/dL Albumin 3.1 L (3.5-5.0) g/dL Amylase (30-110) U/L RBC Folate (280 - 791) ng/mL 06/15/16 06/15/16 06/15/16 Range/Units 11:01 12:58 13:25 WBC (3.8-10.6) k/uL RBC (4.30-5.90) m/uL Hgb (13.0-17.5) gm/dL Hct (39.0-53.0) % MCH (25.0-35.0) pg RDW (11.5-15.5) % Plt Count (150-450) k/uL Neutrophils # (Manual) (1.3-7.7) k/uL Lymphocytes # (Manual) (1.0-4.8) k/uL Nucleated RBCs (0-0) /100 WBC Retic Count 4.4 H (0.5-2.0) % Potassium (3.5-5.1) mmol/L Chloride (98-107) mmol/L BUN (9-20) mg/dL Glucose (74-99) mg/dL POC Glucose (mg/dL) 137 H (75-99) mg/dL Hemoglobin A1c (4.2-6.1) % Calcium (8.4-10.2) mg/dL Ferritin 668 H (18-464) ng/mL Lactate Dehydrogenase (313-618) U/L Total Protein (6.3-8.2) g/dL Total Protein (PEP) (6.2-8.2) g/dL Albumin (3.5-5.0) g/dL Amylase <30 L (30-110) U/L RBC Folate (280 - 791) ng/mL 06/15/16 06/15/16 06/15/16 Range/Units 13:25 13:25 16:38 WBC (3.8-10.6) k/uL RBC (4.30-5.90) m/uL Hgb (13.0-17.5) gm/dL Hct (39.0-53.0) % MCH (25.0-35.0) pg RDW (11.5-15.5) % Plt Count (150-450) k/uL Neutrophils # (Manual) (1.3-7.7) k/uL Lymphocytes # (Manual) (1.0-4.8) k/uL Nucleated RBCs (0-0) /100 WBC Retic Count (0.5-2.0) % Potassium (3.5-5.1) mmol/L Chloride (98-107) mmol/L BUN (9-20) mg/dL Glucose (74-99) mg/dL POC Glucose (mg/dL) 112 H (75-99) mg/dL Hemoglobin A1c (4.2-6.1) % Calcium (8.4-10.2) mg/dL Ferritin (18-464) ng/mL Lactate Dehydrogenase (313-618) U/L Total Protein (6.3-8.2) g/dL Total Protein (PEP) 6.0 L (6.2-8.2) g/dL Albumin (3.5-5.0) g/dL Amylase (30-110) U/L RBC Folate 866 H (280 - 791) ng/mL 06/15/16 06/15/16 06/16/16 Range/Units 19:56 20:07 07:08 WBC 2.1 L (3.8-10.6) k/uL RBC 2.14 L (4.30-5.90) m/uL Hgb 7.4 L (13.0-17.5) gm/dL Hct 21.2 L (39.0-53.0) % MCH (25.0-35.0) pg RDW 19.9 H (11.5-15.5) % Plt Count 8 L* D (150-450) k/uL Neutrophils # (Manual) 0.5 L (1.3-7.7) k/uL Lymphocytes # (Manual) (1.0-4.8) k/uL Nucleated RBCs 6 H (0-0) /100 WBC Retic Count (0.5-2.0) % Potassium (3.5-5.1) mmol/L Chloride (98-107) mmol/L BUN (9-20) mg/dL Glucose (74-99) mg/dL POC Glucose (mg/dL) 67 L 66 L (75-99) mg/dL Hemoglobin A1c (4.2-6.1) % Calcium (8.4-10.2) mg/dL Ferritin (18-464) ng/mL Lactate Dehydrogenase (313-618) U/L Total Protein (6.3-8.2) g/dL Total Protein (PEP) (6.2-8.2) g/dL Albumin (3.5-5.0) g/dL Amylase (30-110) U/L RBC Folate (280 - 791) ng/mL 06/16/16 06/16/16 06/16/16 Range/Units 07:08 07:37 08:06 WBC (3.8-10.6) k/uL RBC (4.30-5.90) m/uL Hgb (13.0-17.5) gm/dL Hct (39.0-53.0) % MCH (25.0-35.0) pg RDW (11.5-15.5) % Plt Count (150-450) k/uL Neutrophils # (Manual) (1.3-7.7) k/uL Lymphocytes # (Manual) (1.0-4.8) k/uL Nucleated RBCs (0-0) /100 WBC Retic Count (0.5-2.0) % Potassium 3.1 L (3.5-5.1) mmol/L Chloride 109 H (98-107) mmol/L BUN 22 H (9-20) mg/dL Glucose 63 L (74-99) mg/dL POC Glucose (mg/dL) 61 L 60 L (75-99) mg/dL Hemoglobin A1c (4.2-6.1) % Calcium (8.4-10.2) mg/dL Ferritin (18-464) ng/mL Lactate Dehydrogenase 734 H (313-618) U/L Total Protein 5.8 L (6.3-8.2) g/dL Total Protein (PEP) (6.2-8.2) g/dL Albumin 3.3 L (3.5-5.0) g/dL Amylase (30-110) U/L RBC Folate (280 - 791) ng/mL 06/16/16 Range/Units 08:51 WBC (3.8-10.6) k/uL RBC (4.30-5.90) m/uL Hgb (13.0-17.5) gm/dL Hct (39.0-53.0) % MCH (25.0-35.0) pg RDW (11.5-15.5) % Plt Count (150-450) k/uL Neutrophils # (Manual) (1.3-7.7) k/uL Lymphocytes # (Manual) (1.0-4.8) k/uL Nucleated RBCs (0-0) /100 WBC Retic Count (0.5-2.0) % Potassium (3.5-5.1) mmol/L Chloride (98-107) mmol/L BUN (9-20) mg/dL Glucose (74-99) mg/dL POC Glucose (mg/dL) 106 H (75-99) mg/dL Hemoglobin A1c (4.2-6.1) % Calcium (8.4-10.2) mg/dL Ferritin (18-464) ng/mL Lactate Dehydrogenase (313-618) U/L Total Protein (6.3-8.2) g/dL Total Protein (PEP) (6.2-8.2) g/dL Albumin (3.5-5.0) g/dL Amylase (30-110) U/L RBC Folate (280 - 791) ng/mL Assessment and Plan Plan: 1. Pancytopenia exact etiology unclear. Patient will be evaluated by hematology. Patient does have a previous history of bladder cancer with chemo treatment about 3 years ago. White count 1.4, hemoglobin 9.4 platelets of 7 on admission. Patient did receive platelets yesterday. Platelet count is at 8 today. He'll receive 4 more units of platelets. Continue to monitor CBC. Awaiting further hematology recommendations. At this time they have ordered blood work. 2. Nausea vomiting and diarrhea 3 days. Symptoms have resolved. Continue the Zofran as needed. Possibly due to a gastroenteritis. Continue to monitor. LFTs are normal. Amylase and lipase normal 3. Generalized weakness: Multifactorial due to the vomiting and diarrhea and pancytopenia. Computed tomography scan of the brain shows no acute intracranial abnormality. 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 Consult PT OT 4. Headache reported in the emergency room now resolved. Computed tomography scan of the brain no acute change 5. Essential hypertension with accelerated hypertension this morning. Blood pressure taken before medications given. We'll have blood pressure repeated. Continue his Bystolic and Cardizem 6. Diabetes mellitus type 2. Patient did have episode of hypoglycemia. Discontinue the Amaryl. Continue sliding scale Coverage. Hemoglobin A1c 6.3 7. 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 Surgery completed in fall 2015. Patient reports there are no findings cancer. 8. History of rheumatoid arthritis 9. Hypokalemia. Patient receiving potassium supplement. Also check magnesium level and replace if needed. GI prophylaxis Protonix and DVT prophylaxis SCDs
[2016-06-16 12:02] LABS: Glucose,Whole Blood 86 mg/dL (75-99)
[2016-06-16] MEDS: MULTIVITAMINS, THERA 1 EACH TAB PO SCH (12:04)
--- NOTE | 2016-06-16 12:27 | CDI ---
Please forward this to Janeth In responding to this query, please exercise your independent professional judgment. The [facility] Coding Staff and Clinical Documentation Specialists appreciate your assistance in clarifying documentation, maintaining compliance with coding guidelines, accurately documenting patients condition and capturing severity of illness. The fact that a question is asked does not imply that any particular answer is desired or expected. Communication forms are a method of clarifying documentation and are not made part of the Legal Health Record. Thank you in advance for your clarification. Last Revision, March 2015 Mikachris Allred [address] [facility] [place] [address] Documentation Clarification Form Date: 06/16/2016 12:17:00 PM From: Marci Hollins Admit Date: 06/14/2016 2:52:00 PM Patient Name: Phuc Joiner Visit Number: [id number] Dr. Alex Bardales or DARIEL Eden Patient history/risk factors: Diabetes Mellitus Hypertension Nausea/Vomiting/Diarrhea - Possible Gastroenteritis Pancytopenia unknown cause (low wbc, low rbc, low platelets) History of Bladder Cancer, skin cancer Clinical Indicators: Hemoglobin: on 06/14 was 9.4, on 06/16 7.4 Hematocrit: on 06/14 was 26.8, on 06/16 21.2 Treatment: Consult: Hematology Labs monitored In order to capture the severity of condition, please clarify if this signifies a diagnosis listed below: Anemia (please specify type if or when known, or state undetermined) Acute blood loss anemia Acute on chronic blood loss anemia Chronic blood loss anemia Iron deficiency anemia Hemolytic anemia Drug induced anemia Anemia due to malignancy Nutritional anemia Anemia of chronic kidney disease Unable to determine Other, please specify Please document in your progress notes and discharge summary in order to capture severity of illness and risk of mortality. Include clinical findings that support your diagnosis. FYI: Press F11 to launch patient chart. Place X here if this finding has no clinical significance, is not applicable or if you are not able to provide any additional documentation. MTDD
[2016-06-16] MEDS: LEVOFLOXACIN 500MG-D5W PMX 500 MG in DEXTROSE/WATER 1 100ML.BAG IVPB SCH (15:30)
[2016-06-16] MEDS: FLUCONAZOLE 100 MG TAB PO SCH (15:30)
--- NOTE | 2016-06-16 16:05 | P.CONS ---
History of Present Illness - Reason for Consult Consult date: 06/16/16 Pancytopenia. Abnormal peripheral smear - History of Present Illness The patient is a 75-year-old gentleman, who states that he was in reasonable state of health, until about late summer. Since then, the patient states that he is just not been feeling well, with decreased appetite, generalized weakness and malaise. These symptoms have slowly been progressive. They have been much more marked over the last 2-3 weeks. He's had a biopsy for this to the ER in the last week or so. He came in this time complaining of nosebleeds. Apparently there was also a history of falling and hitting his head on the ice. A CBC this time showed a hemoglobin of 7.3, white count of 2.3, and platelet counts of 7. He was therefore admitted for further management. Subsequently WBC differential reported a significant left shift with multiple immature forms seen on the slide, including blasts. Consult was therefore placed for further evaluation and recommendations. CT scan of the brain did not show any hemorrhage. Chest x-ray was also negative. He denies any signs or symptoms of infection, other than some subjective fevers at home. However he has not been febrile in the hospital. Over the last 2 days, he states that he also felt nauseous and had some mild intermittent diarrhea. He denied any prior history of blood problems. Review of Systems Constitutional: Reports fatigue, Reports fever, Reports malaise, Reports poor appetite, Reports weight loss Eyes: denies blurred vision, denies pain Ears: deny: decreased hearing, ear discharge, earache, tinnitus Ears, nose, mouth and throat: Reports epistaxis Cardiovascular: Reports dyspnea on exertion Respiratory: Reports dyspnea Gastrointestinal: Reports diarrhea, Reports nausea, Reports vomiting Genitourinary: Reports urinary frequency, Reports urinary hesitancy Musculoskeletal: Reports as per HPI (Multiple joints affected with degenerative joint disease.), Reports gait dysfunction (Likely due to DJD. Uses cane), Reports muscle weakness Integumentary: Denies pruritus, Denies rash Neurological: Reports gait dysfunction, Reports weakness Psychiatric: Denies anxiety, Denies depression Endocrine: Reports weight change Hematologic/Lymphatic: Reports as per HPI, Reports easy bleeding Past Medical History Past Medical History: Cancer, Diabetes Mellitus, GERD/Reflux, Hypertension, Pneumonia, Prostate Disorder, Rheumatoid Arthritis (RA), Sleep Apnea/CPAP/BIPAP Additional Past Medical History / Comment(s): bladder cancer HAD CHEMO TX AT [facility]. skin cancer REMOVED, SHINGLES- 20 YEARS AGO, DOES'NT USE HIS CPAP MACHINE ANYMORE. ?"IRREG HEART BEATOLD BY ONE DR HE HAD AND ANOTHER DR TOLD HIM HE DID'NT" History of Any Multi-Drug Resistant Organisms: None Reported Past Surgical History: Tonsillectomy Additional Past Surgical History / Comment(s): pt. states he has had skin cancer removed from his face, appendectomy, bladder cancer with cystoscopy, colonoscopy, tonsillectomy and adenoidectomy.SX FOR RT VOCAL CORD PARALYSIS.PT STATED HAD FLU/PNE/SHINGLES/TDAP BUT NOT SURE OF DATES-DR OFFICE CLOSED AT TIME OF THIS ADMIT. Past Anesthesia/Blood Transfusion Reactions: No Reported Reaction Past Psychological History: No Psychological Hx Reported Smoking Status: Never smoker Past Alcohol Use History: Occasional Additional Past Alcohol Use History / Comment(s): pt. states he drinks beer every couple weeks Past Drug Use History: None Reported - Past Family History Mother Family Medical History: Cancer Additional Family Medical History / Comment(s): breast cancer Father Family Medical History: Coronary Artery Disease (CAD), Myocardial Infarction ([place] ) Brother(s) Family Medical History: No Reported History Daughter(s) Family Medical History: No Reported History Medications and Allergies Home Medications Medication Instructions Recorded Confirmed Type Diltiazem Cd [Cardizem CD] 240 mg PO DAILY 07/28/15 06/14/16 History Nebivolol HCl [Bystolic] 10 mg PO DAILY 07/28/15 06/14/16 History Fluticasone Nasal [place] [Flonase 2 spr EA NOSTRIL BID 04/19/16 06/14/16 History Nasal [place]] Glimepiride [Amaryl] 4 mg PO BID 04/19/16 06/14/16 History Multivitamins, Thera [Multivitamin] 1 tab PO DAILY 04/19/16 06/14/16 History Omeprazole 20 mg PO BID 04/19/16 06/14/16 History Allergies Allergy/AdvReac Type Severity Reaction Status Date / Time No Known Allergies Allergy Verified 06/14/16 09:04 Physical Exam Vitals: Vital Signs Temp Pulse Pulse Pulse Resp BP BP 06/16/16 15:46 97.9 F 65 20 121/57 06/16/16 15:35 97.9 F 65 14 121/57 06/16/16 13:15 99.3 F 66 14 132/64 06/16/16 12:45 98.4 F 74 12 106/66 06/16/16 12:35 96.9 F L 69 14 130/76 06/16/16 07:00 98.4 F 65 20 145/66 06/15/16 19:07 98 F 69 69 18 154/70 06/15/16 17:37 98.2 F 70 14 107/56 06/15/16 17:23 99.5 F 60 60 18 102/54 Pulse Ox 06/16/16 15:46 96 06/16/16 15:35 06/16/16 13:15 06/16/16 12:45 06/16/16 12:35 06/16/16 07:00 97 06/15/16 19:07 97 06/15/16 17:37 06/15/16 17:23 96 Intake and Output 06/16/16 06/16/16 06/16/16 06:59 14:59 22:59 Intake Total 640 200 297 Balance 640 200 297 Intake: IV 640 Sodium Chloride 0.9% 1, 640 000 ml @ 80 mls/hr IV . [id number] [facility] Rx#:[id number] Oral 200 Blood Product 0 297 Platelet Pheresis Acda2 0 297 Unit [id number] Other: Voiding Method Toilet Toilet Toilet Urinal Urinal Urinal # Voids 3 - Constitutional General appearance: no acute distress - EENT Eyes: EOMI, PERRLA ENT: hearing grossly normal, normal oropharynx - Neck Neck: no lymphadenopathy - Respiratory Respiratory: bilateral: CTA - Cardiovascular Rhythm: regular Heart sounds: normal: S1, S2 Abnormal Heart Sounds: S3 Gallop - Gastrointestinal General gastrointestinal: normal bowel sounds, soft - Integumentary Integumentary: normal - Neurologic Neurologic: CNII-XII intact - Musculoskeletal Musculoskeletal: generalized weakness - Psychiatric Psychiatric: A&O x's 3, appropriate affect Results CBC & Chem 7: 06/16/16 07:08 06/16/16 07:08 Labs: Abnormal Lab Results - Last 24 Hours (Table) 06/15/16 06/15/16 06/15/16 Range/Units 13:25 13:25 16:38 WBC (3.8-10.6) k/uL RBC (4.30-5.90) m/uL Hgb (13.0-17.5) gm/dL Hct (39.0-53.0) % RDW (11.5-15.5) % Plt Count (150-450) k/uL Neutrophils # (Manual) (1.3-7.7) k/uL Nucleated RBCs (0-0) /100 WBC Potassium (3.5-5.1) mmol/L Chloride (98-107) mmol/L BUN (9-20) mg/dL Glucose (74-99) mg/dL POC Glucose (mg/dL) 112 H (75-99) mg/dL Lactate Dehydrogenase (313-618) U/L Total Protein (6.3-8.2) g/dL Total Protein (PEP) 6.0 L (6.2-8.2) g/dL Albumin (3.5-5.0) g/dL RBC Folate 866 H (280 - 791) ng/mL Free [place] LC, Quant 2.49 H (0.33 - 1.94) mg/dL 06/15/16 06/15/16 06/16/16 Range/Units 19:56 20:07 07:08 WBC 2.1 L (3.8-10.6) k/uL RBC 2.14 L (4.30-5.90) m/uL Hgb 7.4 L (13.0-17.5) gm/dL Hct 21.2 L (39.0-53.0) % RDW 19.9 H (11.5-15.5) % Plt Count 8 L* D (150-450) k/uL Neutrophils # (Manual) 0.5 L (1.3-7.7) k/uL Nucleated RBCs 6 H (0-0) /100 WBC Potassium (3.5-5.1) mmol/L Chloride (98-107) mmol/L BUN (9-20) mg/dL Glucose (74-99) mg/dL POC Glucose (mg/dL) 67 L 66 L (75-99) mg/dL Lactate Dehydrogenase (313-618) U/L Total Protein (6.3-8.2) g/dL Total Protein (PEP) (6.2-8.2) g/dL Albumin (3.5-5.0) g/dL RBC Folate (280 - 791) ng/mL Free [place] LC, Quant (0.33 - 1.94) mg/dL 06/16/16 06/16/16 06/16/16 Range/Units 07:08 07:37 08:06 WBC (3.8-10.6) k/uL RBC (4.30-5.90) m/uL Hgb (13.0-17.5) gm/dL Hct (39.0-53.0) % RDW (11.5-15.5) % Plt Count (150-450) k/uL Neutrophils # (Manual) (1.3-7.7) k/uL Nucleated RBCs (0-0) /100 WBC Potassium 3.1 L (3.5-5.1) mmol/L Chloride 109 H (98-107) mmol/L BUN 22 H (9-20) mg/dL Glucose 63 L (74-99) mg/dL POC Glucose (mg/dL) 61 L 60 L (75-99) mg/dL Lactate Dehydrogenase 734 H (313-618) U/L Total Protein 5.8 L (6.3-8.2) g/dL Total Protein (PEP) (6.2-8.2) g/dL Albumin 3.3 L (3.5-5.0) g/dL RBC Folate (280 - 791) ng/mL Free [place] LC, Quant (0.33 - 1.94) mg/dL 06/16/16 Range/Units 08:51 WBC (3.8-10.6) k/uL RBC (4.30-5.90) m/uL Hgb (13.0-17.5) gm/dL Hct (39.0-53.0) % RDW (11.5-15.5) % Plt Count (150-450) k/uL Neutrophils # (Manual) (1.3-7.7) k/uL Nucleated RBCs (0-0) /100 WBC Potassium (3.5-5.1) mmol/L Chloride (98-107) mmol/L BUN (9-20) mg/dL Glucose (74-99) mg/dL POC Glucose (mg/dL) 106 H (75-99) mg/dL Lactate Dehydrogenase (313-618) U/L Total Protein (6.3-8.2) g/dL Total Protein (PEP) (6.2-8.2) g/dL Albumin (3.5-5.0) g/dL RBC Folate (280 - 791) ng/mL Free [place] LC, Quant (0.33 - 1.94) mg/dL Chest x-ray: report reviewed CT Scan - head: report reviewed Assessment and Plan (1) Pancytopenia Narrative/Plan: The fairly new problem. Previous labs were reviewed. In March 2016, when most recent labs were done, white count was low at 2.6. Platelets were slightly lower than normal but still in the 140 range. In 08/10 all blood counts were essentially normal. Therefore this appears to be a new phenomenon, which is fairly aggressive given the degree of drop since late March. The implications of the same were discussed in detail with the patient. This is most suggestive of primary marrow disorder. Primary differentials would be advanced myelodysplasia, as well as acute leukemia. The patient will need a bone marrow aspiration and biopsy is the next step, for diagnosis. The procedure was discussed in detail with the patient. He did not want to have it done without sedation, and therefore this will be scheduled for 06/19/16. My clinical impression, and plan were discussed in detail with the admitting service. Based on our discussion, the patient will be started on Levaquin and Diflucan for prophylaxis, given severe neutropenia. His hemoglobin is currently acceptable. We'll continue to monitor and transfuse as needed. Platelet transfusions were ordered yesterday, as well as today for platelet Counts less than 10. He does not appear to be having any active bleeding. Again we'll continue to monitor and transfuse for any platelet count less than 10, or if there are signs of active bleeding. Status: Acute Plan: Defer to the admitting service for management of his other medical problems.
[2016-06-16 16:41] LABS: Glucose,Whole Blood 147 mg/dL (75-99)
[2016-06-16] MEDS: ACETAMINOPHEN TAB 325 MG TAB PO PRN ×2 (17:00→21:54)
[2016-06-16 20:44] LABS: Glucose,Whole Blood 94 mg/dL (75-99)
[2016-06-17] MEDS: SODIUM CHLORIDE 0.9% 1,000 ML IV SCH ×3 (04:34→19:40)
[2016-06-17 07:38] LABS: Anisocytosis Slight; CH 35.5; CHCM 36.3; HDW 4.09; HGB 7.2 gm/dL (13.0-17.5); Hyperchromasia Slight; Immature Gran Flag Marked; MCH 35.8 pg (25.0-35.0); MCHC 36.2 g/dL (31.0-37.0); Macrocytosis Moderate; Mean Platelet Volume 8.8; Poikilocytosis Moderate; RDW 19.9 % (11.5-15.5); WBC 2.7 k/uL (3.8-10.6); WBC (Perox) 2.68
[2016-06-17 07:45] LABS: HCT 19.8 % (39.0-53.0)
[2016-06-17 07:53] LABS: ALT 34 U/L (21-72); AST 37 U/L (17-59); Alkaline Phosphatase 75 U/L (38-126); Anion Gap 13 mmol/L; Blood Urea Nitrogen 17 mg/dL (9-20); Calcium 8.4 mg/dL (8.4-10.2); Carbon Dioxide 22 mmol/L (22-30); Chloride 110 mmol/L (98-107); Glucose 147 mg/dL (74-99); Non-African American GFR(MDRD) >60 (>60 ml/min/1.73 sqM); Potassium 3.2 mmol/L (3.5-5.1); Sodium 145 mmol/L (137-145); Total Bilirubin 0.7 mg/dL (0.2-1.3); Total Protein 5.9 g/dL (6.3-8.2)
[2016-06-17 07:54] LABS: Glucose,Whole Blood 156 mg/dL (75-99)
[2016-06-17] MEDS: INSULIN LISPRO (humaLOG) 300 UNIT/3 ML VIAL SQ SCH ×4 (08:01→22:40)
[2016-06-17] MEDS: PANTOPRAZOLE 40 MG TABLET PO SCH ×2 (08:01→17:19)
[2016-06-17] MEDS: FLUTICASONE 50MCG/SPRAY NASAL 16GM EA NOSTRIL SCH ×2 (08:01→22:40)
[2016-06-17] MEDS: FLUCONAZOLE 100 MG TAB PO SCH (08:04)
[2016-06-17] MEDS: NEBIVOLOL 5 MG TAB PO SCH (08:04)
[2016-06-17] MEDS: DILTIAZEM CD 240 MG CAP.ER.24H PO SCH (08:04)
[2016-06-17 10:36] LABS: Add Differential Manual Differential
[2016-06-17 10:47] LABS: Blast Cells 8.5; Manual Review Performed; Myelocytes % 16.5 %; Nucleated Red Blood Cells 1 /100 WBC (0-0); Total Cells Counted 200
[2016-06-17 12:07] LABS: Glucose,Whole Blood 166 mg/dL (75-99)
--- NOTE | 2016-06-17 12:36 | P.PN ---
Subjective Patient is doing well today. No events overnight. Objective - Vital Signs Vital signs: Vital Signs Temp 97.7 F 06/17/16 10:22 Pulse 67 06/17/16 10:22 Resp 18 06/17/16 10:22 BP 144/70 06/17/16 10:22 Pulse Ox 96 06/17/16 10:22 Intake & Output 06/16/16 06/17/16 06/17/16 18:59 06:59 18:59 Intake Total 497 1240 0 Balance 497 1240 0 Intake: IV 1040 Sodium Chloride 0.9% 1, 1040 000 ml @ 80 mls/hr IV . [id number] [facility] Rx#:[id number] Oral 200 200 Blood Product 297 0 Platelet Pheresis Acda2 0 Unit [id number] Platelet Pheresis Acda2 297 Unit [id number] Other: Voiding Method Toilet Toilet Toilet Urinal Urinal Urinal # Voids 3 3 - Exam General: The patient is awake and alert, in no distress Eye: there is normal conjunctiva bilaterally. Neck: The neck is supple, there is no JVD. Cardiovascular: Normal S1-S2, no S3-S4, no murmurs. Respiratory: Lungs clear to auscultation bilaterally Gastrointestinal: Abdomen is soft, nontender Musculoskeletal: There is no pedal edema. Neurological:. Speech is normal. Skin: Skin is warm and dry - Labs CBC & Chem 7: 06/17/16 07:18 06/17/16 07:18 Labs: Abnormal Lab Results - Last 24 Hours (Table) 06/15/16 06/16/16 06/17/16 Range/Units 13:25 16:37 07:18 WBC 2.7 L (3.8-10.6) k/uL RBC 2.00 L (4.30-5.90) m/uL Hgb 7.2 L (13.0-17.5) gm/dL Hct 19.8 L* (39.0-53.0) % MCH 35.8 H (25.0-35.0) pg RDW 19.9 H (11.5-15.5) % Plt Count 6 L* (150-450) k/uL Neutrophils # (Manual) 0.7 L (1.3-7.7) k/uL Lymphocytes # (Manual) 0.8 L (1.0-4.8) k/uL Nucleated RBCs 1 H (0-0) /100 WBC Potassium (3.5-5.1) mmol/L Chloride (98-107) mmol/L Glucose (74-99) mg/dL POC Glucose (mg/dL) 147 H (75-99) mg/dL Total Protein (6.3-8.2) g/dL Albumin (3.5-5.0) g/dL RBC Folate 866 H (280 - 791) ng/mL Free [place] LC, Quant 2.49 H (0.33 - 1.94) mg/dL 06/17/16 06/17/16 06/17/16 Range/Units 07:18 07:50 12:01 WBC (3.8-10.6) k/uL RBC (4.30-5.90) m/uL Hgb (13.0-17.5) gm/dL Hct (39.0-53.0) % MCH (25.0-35.0) pg RDW (11.5-15.5) % Plt Count (150-450) k/uL Neutrophils # (Manual) (1.3-7.7) k/uL Lymphocytes # (Manual) (1.0-4.8) k/uL Nucleated RBCs (0-0) /100 WBC Potassium 3.2 L (3.5-5.1) mmol/L Chloride 110 H (98-107) mmol/L Glucose 147 H (74-99) mg/dL POC Glucose (mg/dL) 156 H 166 H (75-99) mg/dL Total Protein 5.9 L (6.3-8.2) g/dL Albumin 3.4 L (3.5-5.0) g/dL RBC Folate (280 - 791) ng/mL Free [place] LC, Quant (0.33 - 1.94) mg/dL Assessment and Plan Plan: 1. Pancytopenia exact etiology unclear. Most likely secondary to bone marrow disease. Awaiting bone marrow biopsy on Sunday. Transfuse as needed for platelet below 10 and hemoglobin below 7 2. Nausea vomiting and diarrhea 3 days. Symptoms have resolved. Continue the Zofran as needed. Possibly due to a gastroenteritis. Continue to monitor. LFTs are normal. Amylase and lipase normal 3. Generalized weakness: Multifactorial due to the vomiting and diarrhea and pancytopenia. Computed tomography scan of the brain shows no acute intracranial abnormality. 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 4. Headache reported in the emergency room now resolved. Computed tomography scan of the brain no acute change 5. Essential hypertension with accelerated hypertension: Now blood pressure better controlled. We will continue to monitor. 6. Diabetes mellitus type 2. Patient did have episode of hypoglycemia. Discontinue the Amaryl. Continue sliding scale Coverage. Hemoglobin A1c 6.3 7. 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 Surgery completed in fall 2015. Patient reports there are no findings cancer. 8. History of rheumatoid arthritis 9. Hypokalemia. Patient receiving potassium supplement. Also check magnesium level and replace if needed. GI prophylaxis Protonix and DVT prophylaxis SCDs Awaiting bone marrow biopsy on Sunday
[2016-06-17] MEDS: MULTIVITAMINS, THERA 1 EACH TAB PO SCH (12:44)
[2016-06-17] MEDS: ACETAMINOPHEN TAB 325 MG TAB PO PRN (12:47)
[2016-06-17] MEDS: LEVOFLOXACIN 500MG-D5W PMX 500 MG in DEXTROSE/WATER 1 100ML.BAG IVPB SCH (15:01)
[2016-06-17 16:38] LABS: Glucose,Whole Blood 174 mg/dL (75-99)
[2016-06-17] MEDS ORDERED: ZOLPIDEM 5 MG TAB PO PRN (20:00)
[2016-06-17 20:39] LABS: Glucose,Whole Blood 222 mg/dL (75-99)
[2016-06-18] MEDS: INSULIN LISPRO (humaLOG) 300 UNIT/3 ML VIAL SQ SCH ×5 (00:03→21:16)
[2016-06-18] MEDS ORDERED: FLUMAZENIL 0.1 MG/ML 5 ML VIAL IVP STA (00:08)
[2016-06-18 00:22] LABS: Glucose,Whole Blood 376 mg/dL (75-99)
[2016-06-18 00:22] LABS: Glucose,Whole Blood 382 mg/dL (75-99)
[2016-06-18] MEDS ORDERED: FUROSEMIDE 10 MG/ML 4 ML VIAL IV STA ×2 (00:33→08:59)
--- NOTE | 2016-06-18 00:56 | XR ---
EXAMINATION TYPE: XR chest 1V portable DATE OF EXAM: 06/18/2016 12:23 AM COMPARISON: 06/14/2016 HISTORY: Shortness of breath TECHNIQUE: Single frontal view of the chest is obtained. FINDINGS: There is suggestion of mild CHF with perihilar edema changes. No definite focal pneumonia pneumothora x is noted. There is suggestion of mild left-sided pleural effusion and left basilar lung infiltrates and atelectasis. Calcified lymph node is suggested in the azygos area. Calcified lymph nodes are also noted in the res t of the right hilum area. There is moderate cardiomegaly. The osseous structures are intact. IMPRESSION: 1. Mild CHF. Pulmonary edema. 2. Mild left-sided pleural effusion and left basilar lung infiltrate and atelectasis. 3. Cardiomegaly.
[2016-06-18 00:57] LABS: ABG HCO3 15 mmol/L (21-25); ABG PCO2 33 mmHg (35-45); ABG PH 7.29 (7.35-7.45); ABG PO2 183 mmHg (83-108); ABG TCO2 16 mmol/L (19-24)
[2016-06-18] MEDS ORDERED: FUROSEMIDE 10 MG/ML 4 ML VIAL ONE (01:25)
[2016-06-18] MEDS ORDERED: FLUMAZENIL 0.1 MG/ML 5 ML VIAL IVP ONE (01:25)
[2016-06-18] MEDS ORDERED: PROPOFOL 0 ML IV ONE (02:11)
[2016-06-18] MEDS ORDERED: SODIUM BICARB 8.4% 50 ML SYR (1 MEQ/ML) ONE (02:20)
[2016-06-18] MEDS ORDERED: SODIUM BICARB 8.4% 50 ML SYR (1 MEQ/ML) IV STA (02:24)
[2016-06-18] MEDS: IPRATROPIUM-ALBUTEROL 3 ML NEB INHALATION PRN (02:28)
[2016-06-18 04:31] LABS: Amorphous Sediment,Urine Rare /hpf; Appearance,Urine Cloudy (Clear); Bilirubin,Urine Negative (Negative); Glucose,Urine (UA) Trace (Negative); Ketones,Urine Negative (Negative); Leukocyte Esterase,Urine Negative (Negative); Mucus,Urine Rare /hpf; Nitrite,Urine Negative (Negative); Particle Count 6577; Protein,Urine Trace (Negative); RBC,Urine 171 /hpf (0-5); Specific Gravity,Urine 1.007 (1.001-1.035); Squamous Epithelial Cell,Urine <1 /hpf (0-4); UA Billing (MACRO vs. MICRO) MICRO; Urobilinogen,Urine <2.0 mg/dL (<2.0); WBC,Urine 2 /hpf (0-5)
[2016-06-18] MEDS: IPRATROPIUM-ALBUTEROL 3 ML NEB INHALATION SCH ×4 (06:55→19:22)
[2016-06-18] MEDS: SODIUM CHLORIDE 0.9% 1,000 ML IV SCH ×4 (07:11→14:31)
[2016-06-18] MEDS: NEBIVOLOL 5 MG TAB PO SCH (08:24)
[2016-06-18] MEDS: DILTIAZEM CD 240 MG CAP.ER.24H PO SCH (08:24)
[2016-06-18] MEDS: FLUCONAZOLE 100 MG TAB PO SCH (08:24)
[2016-06-18 08:25] LABS: Glucose,Whole Blood 179 mg/dL (75-99)
[2016-06-18] MEDS: FLUTICASONE 50MCG/SPRAY NASAL 16GM EA NOSTRIL SCH ×2 (08:25→21:13)
--- NOTE | 2016-06-18 08:32 | XR ---
EXAMINATION TYPE: XR chest 1V DATE OF EXAM: 06/18/2016 6:49 AM COMPARISON: 06/18/2016 earlier exam INDICATION: Short of breath TECHNIQUE: Single frontal view of the chest is obtained. FINDINGS: Heart size is enlarged The pulmonary vasculature is normal. The lungs are clear. IMPRESSION: 1. Cardiomegaly.
[2016-06-18 10:48] LABS: Anisocytosis Moderate; CH 34.4; CHCM 35.9; HCT 21.4 % (39.0-53.0); HDW 3.98; HGB 7.3 gm/dL (13.0-17.5); Immature Gran Flag Marked; MCHC 34.1 g/dL (31.0-37.0); MCV 96.7 fL (80.0-100.0); Macrocytosis Slight; Mean Platelet Volume 6.9; Poikilocytosis Slight; RBC 2.21 m/uL (4.30-5.90); RDW 20.7 % (11.5-15.5); WBC (Perox) 2.98
[2016-06-18 11:07] LABS: INR 1.5 (<1.1); Prothrombin Time 14.9 sec (9.0-12.0)
[2016-06-18 11:22] LABS: Add Differential Manual Differential
[2016-06-18 11:23] LABS: ALT 42 U/L (21-72); AST 64 U/L (17-59); Alkaline Phosphatase 74 U/L (38-126); Anion Gap 13 mmol/L; Blood Urea Nitrogen 21 mg/dL (9-20); Calcium 8.5 mg/dL (8.4-10.2); Carbon Dioxide 26 mmol/L (22-30); Chloride 108 mmol/L (98-107); Glucose 165 mg/dL (74-99); Magnesium 1.6 mg/dL (1.6-2.3); Non-African American GFR(MDRD) 51 (>60 ml/min/1.73 sqM); Phosphorous 4.7 mg/dL (2.5-4.5); Potassium 3.8 mmol/L (3.5-5.1); Sodium 147 mmol/L (137-145); Total Bilirubin 0.9 mg/dL (0.2-1.3); Total Protein 6.4 g/dL (6.3-8.2); Uric Acid 9.2 mg/dL (3.5-8.5)
[2016-06-18] MEDS ORDERED: Potassium Replacement Protocol 1 EACH MISC MISCELLANE PRN (11:33)
[2016-06-18] MEDS ORDERED: Magnesium Replacement Protocol 1 EACH MISC MISCELLANE PRN (11:33)
[2016-06-18 11:37] LABS: Blast Cells 10.5; Nucleated Red Blood Cells 5 /100 WBC (0-0); Promyelocytes % 3.5 %; Total Cells Counted 200; WBC 2.9 k/uL (3.8-10.6)
[2016-06-18 11:38] LABS: Manual Review Performed
[2016-06-18 11:44] LABS: Glucose,Whole Blood 157 mg/dL (75-99)
--- NOTE | 2016-06-18 11:47 | P.PN ---
Subjective Principal diagnosis: Pancytopenia. The patient became quite lethargic and less responsive overnight, with the increased difficulty in breathing. He was therefore transferred to the ICU. He is improved with diuresis. Objective - Vital Signs Vital signs: Vital Signs Temp 98.2 F 06/18/16 08:00 Pulse 71 06/18/16 11:00 Resp 18 06/18/16 11:00 BP 143/70 06/18/16 11:00 Pulse Ox 98 06/18/16 11:00 Intake & Output 06/17/16 06/18/16 06/18/16 18:59 06:59 18:59 Intake Total 1029 80 350 Output Total 1040 1195 Balance 1029 -960 -845 Intake: IV 640 80 40 Sodium Chloride 0.9% 1, 640 80 40 000 ml @ 80 mls/hr IV . [id number] [facility] Rx#:[id number] Intake, IV Titration 100 Amount Levofloxacin 500Mg-D5w 100 Pmx 500 mg In Dextrose/ Water 1 100ml.bag @ 100 mls/hr IVPB Q24H [facility] Rx#: [id number] Blood Product 289 0 310 Platelet Pheresis Acda2 289 Unit [id number] Rc Pheresis 2 As3 Unit 0 310 [id number] Output: Urine 1040 1195 Other: Voiding Method Toilet Indwelling Catheter Indwelling Catheter Urinal # Voids 2 - Constitutional General appearance: Present: mild distress - EENT Eyes: Present: EOMI, PERRLA ENT: Present: hearing grossly normal, normal oropharynx - Respiratory Respiratory: bilateral: diminished, rales - Cardiovascular Rhythm: regular Heart sounds: normal: S1, S2 - Gastrointestinal General gastrointestinal: Present: normal bowel sounds, soft - Integumentary Integumentary: Present: normal - Neurologic Neurologic: Present: CNII-XII intact - Musculoskeletal Musculoskeletal: Present: generalized weakness, strength equal bilaterally - Psychiatric Psychiatric: Present: A&O x's 3 - Labs CBC & Chem 7: 06/18/16 10:40 06/18/16 10:40 Labs: Abnormal Lab Results - Last 24 Hours (Table) 06/15/16 06/17/16 06/17/16 Range/Units 13:25 12:01 16:37 WBC (3.8-10.6) k/uL RBC (4.30-5.90) m/uL Hgb (13.0-17.5) gm/dL Hct (39.0-53.0) % RDW (11.5-15.5) % Plt Count (150-450) k/uL Neutrophils # (Manual) (1.3-7.7) k/uL Lymphocytes # (Manual) (1.0-4.8) k/uL Nucleated RBCs (0-0) /100 WBC PT (9.0-12.0) sec ABG pH (7.35-7.45) ABG pCO2 (35-45) mmHg ABG pO2 (83-108) mmHg ABG HCO3 (21-25) mmol/L ABG Total CO2 (19-24) mmol/L ABG O2 Saturation (94-97) % Sodium (137-145) mmol/L Chloride (98-107) mmol/L BUN (9-20) mg/dL Creatinine (0.66-1.25) mg/dL Glucose (74-99) mg/dL POC Glucose (mg/dL) 166 H 174 H (75-99) mg/dL Uric Acid (3.5-8.5) mg/dL Phosphorus (2.5-4.5) mg/dL AST (17-59) U/L Urine Protein (Negative) Urine Glucose (UA) (Negative) Urine Blood (Negative) Urine RBC (0-5) /hpf Amorphous Sediment (None) /hpf Hyaline Casts (0-2) /lpf Urine Mucus (None) /hpf Crossmatch See Detail 06/17/16 06/18/16 06/18/16 Range/Units 20:38 00:01 00:02 WBC (3.8-10.6) k/uL RBC (4.30-5.90) m/uL Hgb (13.0-17.5) gm/dL Hct (39.0-53.0) % RDW (11.5-15.5) % Plt Count (150-450) k/uL Neutrophils # (Manual) (1.3-7.7) k/uL Lymphocytes # (Manual) (1.0-4.8) k/uL Nucleated RBCs (0-0) /100 WBC PT (9.0-12.0) sec ABG pH (7.35-7.45) ABG pCO2 (35-45) mmHg ABG pO2 (83-108) mmHg ABG HCO3 (21-25) mmol/L ABG Total CO2 (19-24) mmol/L ABG O2 Saturation (94-97) % Sodium (137-145) mmol/L Chloride (98-107) mmol/L BUN (9-20) mg/dL Creatinine (0.66-1.25) mg/dL Glucose (74-99) mg/dL POC Glucose (mg/dL) 222 H 376 H 382 H (75-99) mg/dL Uric Acid (3.5-8.5) mg/dL Phosphorus (2.5-4.5) mg/dL AST (17-59) U/L Urine Protein (Negative) Urine Glucose (UA) (Negative) Urine Blood (Negative) Urine RBC (0-5) /hpf Amorphous Sediment (None) /hpf Hyaline Casts (0-2) /lpf Urine Mucus (None) /hpf Crossmatch 06/18/16 06/18/16 06/18/16 Range/Units 00:44 04:13 08:24 WBC (3.8-10.6) k/uL RBC (4.30-5.90) m/uL Hgb (13.0-17.5) gm/dL Hct (39.0-53.0) % RDW (11.5-15.5) % Plt Count (150-450) k/uL Neutrophils # (Manual) (1.3-7.7) k/uL Lymphocytes # (Manual) (1.0-4.8) k/uL Nucleated RBCs (0-0) /100 WBC PT (9.0-12.0) sec ABG pH 7.29 L (7.35-7.45) ABG pCO2 33 L (35-45) mmHg ABG pO2 183 H (83-108) mmHg ABG HCO3 15 L (21-25) mmol/L ABG Total CO2 16 L (19-24) mmol/L ABG O2 Saturation 99.0 H (94-97) % Sodium (137-145) mmol/L Chloride (98-107) mmol/L BUN (9-20) mg/dL Creatinine (0.66-1.25) mg/dL Glucose (74-99) mg/dL POC Glucose (mg/dL) 179 H (75-99) mg/dL Uric Acid (3.5-8.5) mg/dL Phosphorus (2.5-4.5) mg/dL AST (17-59) U/L Urine Protein Trace H (Negative) Urine Glucose (UA) Trace H (Negative) Urine Blood Moderate H (Negative) Urine RBC 171 H (0-5) /hpf Amorphous Sediment Rare H (None) /hpf Hyaline Casts 13 H (0-2) /lpf Urine Mucus Rare H (None) /hpf Crossmatch 06/18/16 06/18/16 06/18/16 Range/Units 10:40 10:40 10:40 WBC 2.9 L (3.8-10.6) k/uL RBC 2.21 L (4.30-5.90) m/uL Hgb 7.3 L (13.0-17.5) gm/dL Hct 21.4 L (39.0-53.0) % RDW 20.7 H (11.5-15.5) % Plt Count 9 L* (150-450) k/uL Neutrophils # (Manual) 1.0 L (1.3-7.7) k/uL Lymphocytes # (Manual) 0.7 L (1.0-4.8) k/uL Nucleated RBCs 5 H (0-0) /100 WBC PT 14.9 H (9.0-12.0) sec ABG pH (7.35-7.45) ABG pCO2 (35-45) mmHg ABG pO2 (83-108) mmHg ABG HCO3 (21-25) mmol/L ABG Total CO2 (19-24) mmol/L ABG O2 Saturation (94-97) % Sodium 147 H (137-145) mmol/L Chloride 108 H (98-107) mmol/L BUN 21 H (9-20) mg/dL Creatinine 1.36 H (0.66-1.25) mg/dL Glucose 165 H (74-99) mg/dL POC Glucose (mg/dL) (75-99) mg/dL Uric Acid 9.2 H (3.5-8.5) mg/dL Phosphorus 4.7 H (2.5-4.5) mg/dL AST 64 H (17-59) U/L Urine Protein (Negative) Urine Glucose (UA) (Negative) Urine Blood (Negative) Urine RBC (0-5) /hpf Amorphous Sediment (None) /hpf Hyaline Casts (0-2) /lpf Urine Mucus (None) /hpf Crossmatch Assessment and Plan (1) Pancytopenia Narrative/Plan: The patient is to have a bone marrow aspiration biopsy done tomorrow. At this time acute leukemia or advanced myelodysplasia or the primary differentials. The case was discussed with pulmonary medicine. Given the patient's improvement, with ongoing measures, it is felt that he most likely will be suitable for sedation tomorrow morning. Hemoglobin remained above 7. W BC stable. Records were again less than 10, and 1 unit of platelets was ordered. Status: Acute (2) Acute respiratory failure Narrative/Plan: Case was discussed with pulmonary medicine. This is likely multifactorial, due to fluid overload, sleep apnea, and possible medication effect. The patient is improved with diuresis and oxygen. As noted, it is anticipated by pulmonary medicine, and the patient will be able to have IV sedation for the procedure tomorrow with ongoing supportive measures. Defer to them for further management Status: Acute Plan: The patient has poor IV access, and PICC line placement is planned. It is recommended that the patient receive a unit of platelets, just prior to or during the time of procedure.
[2016-06-18] MEDS: MULTIVITAMINS, THERA 1 EACH TAB PO SCH (11:51)
[2016-06-18] MEDS ORDERED: POTASSIUM CHLORIDE ER 20 MEQ TAB.ER PO SCH (12:00)
[2016-06-18] MEDS: MAGNESIUM SULFATE-D5W PMX 1 GM in DEXTROSE/WATER 1 100ML.BAG IVPB SCH ×2 (12:12→13:26)
--- NOTE | 2016-06-18 12:21 | P.PN ---
Subjective Patient is currently in the intensive care unit on BiPAP. He had an episode of hypoxia last night with a chest x-ray showing some evidence of fluid overload. Patient was getting IV Lasix and was transferred to the intensive care for close monitoring. He remained hemodynamically stable. He is feeling well today. His O2 saturation has improved significantly after diuresis. Objective - Vital Signs Vital signs: Vital Signs Temp 99.1 F 06/18/16 12:00 Pulse 66 06/18/16 12:00 Resp 15 06/18/16 12:00 BP 157/72 06/18/16 12:00 Pulse Ox 96 06/18/16 12:00 Intake & Output 06/17/16 06/18/16 06/18/16 18:59 06:59 18:59 Intake Total 1029 80 755 Output Total 1040 1545 Balance 1029 -960 -790 Intake: IV 640 80 50 Sodium Chloride 0.9% 1, 640 80 50 000 ml @ 80 mls/hr IV . [id number] ZAB[facility] Rx#:[id number] Intake, IV Titration 100 100 Amount Levofloxacin 500Mg-D5w 100 Pmx 500 mg In Dextrose/ Water 1 100ml.bag @ 100 mls/hr IVPB Q24H [facility] Rx#: [id number] Magnesium Sulfate-D5w Pmx 100 1 gm In Dextrose/Water 1 100ml.bag @ 100 mls/hr IVPB Q1H [facility] Rx#: [id number] Blood Product 289 0 605 Platelet Pheresis Acda1 295 Unit [id number] Platelet Pheresis Acda2 289 Unit [id number] Rc Pheresis 2 As3 Unit 0 310 [id number] Output: Urine 1040 1545 Other: Voiding Method Toilet Indwelling Catheter Indwelling Catheter Urinal # Voids 2 - Exam General: The patient is awake and alert, in no distress Eye: there is normal conjunctiva bilaterally. Neck: The neck is supple, there is no JVD. Cardiovascular: Normal S1-S2, no S3-S4, no murmurs. Respiratory: Lungs clear to auscultation bilaterally Gastrointestinal: Abdomen is soft, nontender Musculoskeletal: There is no pedal edema. Neurological:. Speech is normal. Skin: Skin is warm and dry - Labs CBC & Chem 7: 06/18/16 10:40 06/18/16 10:40 Labs: Abnormal Lab Results - Last 24 Hours (Table) 06/15/16 06/17/16 06/17/16 Range/Units 13:25 16:37 20:38 WBC (3.8-10.6) k/uL RBC (4.30-5.90) m/uL Hgb (13.0-17.5) gm/dL Hct (39.0-53.0) % RDW (11.5-15.5) % Plt Count (150-450) k/uL Neutrophils # (Manual) (1.3-7.7) k/uL Lymphocytes # (Manual) (1.0-4.8) k/uL Nucleated RBCs (0-0) /100 WBC PT (9.0-12.0) sec ABG pH (7.35-7.45) ABG pCO2 (35-45) mmHg ABG pO2 (83-108) mmHg ABG HCO3 (21-25) mmol/L ABG Total CO2 (19-24) mmol/L ABG O2 Saturation (94-97) % Sodium (137-145) mmol/L Chloride (98-107) mmol/L BUN (9-20) mg/dL Creatinine (0.66-1.25) mg/dL Glucose (74-99) mg/dL POC Glucose (mg/dL) 174 H 222 H (75-99) mg/dL Uric Acid (3.5-8.5) mg/dL Phosphorus (2.5-4.5) mg/dL AST (17-59) U/L Urine Protein (Negative) Urine Glucose (UA) (Negative) Urine Blood (Negative) Urine RBC (0-5) /hpf Amorphous Sediment (None) /hpf Hyaline Casts (0-2) /lpf Urine Mucus (None) /hpf Crossmatch See Detail 06/18/16 06/18/16 06/18/16 Range/Units 00:01 00:02 00:44 WBC (3.8-10.6) k/uL RBC (4.30-5.90) m/uL Hgb (13.0-17.5) gm/dL Hct (39.0-53.0) % RDW (11.5-15.5) % Plt Count (150-450) k/uL Neutrophils # (Manual) (1.3-7.7) k/uL Lymphocytes # (Manual) (1.0-4.8) k/uL Nucleated RBCs (0-0) /100 WBC PT (9.0-12.0) sec ABG pH 7.29 L (7.35-7.45) ABG pCO2 33 L (35-45) mmHg ABG pO2 183 H (83-108) mmHg ABG HCO3 15 L (21-25) mmol/L ABG Total CO2 16 L (19-24) mmol/L ABG O2 Saturation 99.0 H (94-97) % Sodium (137-145) mmol/L Chloride (98-107) mmol/L BUN (9-20) mg/dL Creatinine (0.66-1.25) mg/dL Glucose (74-99) mg/dL POC Glucose (mg/dL) 376 H 382 H (75-99) mg/dL Uric Acid (3.5-8.5) mg/dL Phosphorus (2.5-4.5) mg/dL AST (17-59) U/L Urine Protein (Negative) Urine Glucose (UA) (Negative) Urine Blood (Negative) Urine RBC (0-5) /hpf Amorphous Sediment (None) /hpf Hyaline Casts (0-2) /lpf Urine Mucus (None) /hpf Crossmatch 06/18/16 06/18/16 06/18/16 Range/Units 04:13 08:24 10:40 WBC 2.9 L (3.8-10.6) k/uL RBC 2.21 L (4.30-5.90) m/uL Hgb 7.3 L (13.0-17.5) gm/dL Hct 21.4 L (39.0-53.0) % RDW 20.7 H (11.5-15.5) % Plt Count 9 L* (150-450) k/uL Neutrophils # (Manual) 1.0 L (1.3-7.7) k/uL Lymphocytes # (Manual) 0.7 L (1.0-4.8) k/uL Nucleated RBCs 5 H (0-0) /100 WBC PT (9.0-12.0) sec ABG pH (7.35-7.45) ABG pCO2 (35-45) mmHg ABG pO2 (83-108) mmHg ABG HCO3 (21-25) mmol/L ABG Total CO2 (19-24) mmol/L ABG O2 Saturation (94-97) % Sodium (137-145) mmol/L Chloride (98-107) mmol/L BUN (9-20) mg/dL Creatinine (0.66-1.25) mg/dL Glucose (74-99) mg/dL POC Glucose (mg/dL) 179 H (75-99) mg/dL Uric Acid (3.5-8.5) mg/dL Phosphorus (2.5-4.5) mg/dL AST (17-59) U/L Urine Protein Trace H (Negative) Urine Glucose (UA) Trace H (Negative) Urine Blood Moderate H (Negative) Urine RBC 171 H (0-5) /hpf Amorphous Sediment Rare H (None) /hpf Hyaline Casts 13 H (0-2) /lpf Urine Mucus Rare H (None) /hpf Crossmatch 06/18/16 06/18/16 06/18/16 Range/Units 10:40 10:40 11:42 WBC (3.8-10.6) k/uL RBC (4.30-5.90) m/uL Hgb (13.0-17.5) gm/dL Hct (39.0-53.0) % RDW (11.5-15.5) % Plt Count (150-450) k/uL Neutrophils # (Manual) (1.3-7.7) k/uL Lymphocytes # (Manual) (1.0-4.8) k/uL Nucleated RBCs (0-0) /100 WBC PT 14.9 H (9.0-12.0) sec ABG pH (7.35-7.45) ABG pCO2 (35-45) mmHg ABG pO2 (83-108) mmHg ABG HCO3 (21-25) mmol/L ABG Total CO2 (19-24) mmol/L ABG O2 Saturation (94-97) % Sodium 147 H (137-145) mmol/L Chloride 108 H (98-107) mmol/L BUN 21 H (9-20) mg/dL Creatinine 1.36 H (0.66-1.25) mg/dL Glucose 165 H (74-99) mg/dL POC Glucose (mg/dL) 157 H (75-99) mg/dL Uric Acid 9.2 H (3.5-8.5) mg/dL Phosphorus 4.7 H (2.5-4.5) mg/dL AST 64 H (17-59) U/L Urine Protein (Negative) Urine Glucose (UA) (Negative) Urine Blood (Negative) Urine RBC (0-5) /hpf Amorphous Sediment (None) /hpf Hyaline Casts (0-2) /lpf Urine Mucus (None) /hpf Crossmatch Assessment and Plan Plan: 1. Pancytopenia exact etiology unclear. Most likely secondary to bone marrow disease. Awaiting bone marrow biopsy on Sunday. Transfuse as needed for platelet below 10 and hemoglobin below 7 2. Acute hypoxic respiratory failure: Most likely secondary to fluid overload. Improved significantly with IV Lasix. Seen and evaluated by pulmonology, appreciate recommendations. 3. Generalized weakness: Multifactorial due to the vomiting and diarrhea and pancytopenia. Computed tomography scan of the brain shows no acute intracranial abnormality. 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 4. Headache reported in the emergency room now resolved. Computed tomography scan of the brain no acute change 5. Essential hypertension with accelerated hypertension: Now blood pressure better controlled. We will continue to monitor. 6. Diabetes mellitus type 2. Patient did have episode of hypoglycemia. Discontinue the Amaryl. Continue sliding scale Coverage. Hemoglobin A1c 6.3 7. 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 Surgery completed in fall 2015. Patient reports there are no findings cancer. 8. History of rheumatoid arthritis 9. Hypokalemia. Patient receiving potassium supplement. GI prophylaxis Protonix and DVT prophylaxis SCDs Awaiting bone marrow biopsy on Sunday
[2016-06-18] MEDS ORDERED: IV VANCOMYCIN PER PHARMACY 1 EACH MISC MISCELLANE PRN (14:27)
--- NOTE | 2016-06-18 14:27 | P.CNPUL ---
History of Present Illness Consult date: 06/18/16 Requesting physician: Alex Bardales Reason for consult: other (Impending respiratory failure) Chief complaint: Generalized weakness nausea and vomiting as well as diarrhea. History of present illness: This is a 75-year-old white male with history of multiple medical problems including history of bladder cancer, this was treated over 3 years ago. Patient is also known to have history of vocal cord paralysis requiring surgery. History of recent nosebleed for which she was treated in the ER,. Looking back at his previous evaluation in the ER, he was seen also on 2015, and at the time the patient presented with weakness and fatigue, he was noted to have atrial fibrillation with slow ventricular response, and at times he had junctional rhythm. His laboratory studies at the time showed that he had a white count of 2.6, and his platelets were 143,000. Looking at His visit to the ER on 06/08/2016 for epistaxis, patient had no blood work done at the time , but his blood pressure was noted to be 182/73. And his temp was 98.0 at the time. The nasal bleeding was controlled by Afrin nasal spray, and nasal clamp. When the patient was reevaluated in the ER on 06/14/2016 with mostly weakness, his WBC count was 1.4, hemoglobin was 9.4, and his platelets were 7000. Considering his abnormal labs, and considering his profound symptoms of weakness , patient was admitted initially to the medical floor. Apparently it was felt that the patient may be dehydrated, and he was given IV fluids. Patient was seen by hematology/oncology on consultation, and he was advised to have a bone marrow aspiration/biopsy on Sunday tomorrow. However last night the patient developed an episode of increased shortness of breath, abnormal chest x-ray showing evidence of pulmonary edema, hence the patient was transferred to the ICU. Upon arrival to the ICU, I was notified about the patient, and according to the nurse who called me he was in severe respiratory distress. I recommended diuresis I also recommended sodium bicarb given for his metabolic acidosis, and I recommended a unit of packed RBCs to be transfused for low hemoglobin of 7.2 I also recommended intubating the patient since he was in severe respiratory distress, however by the time the PROFESSOR OF GERMAN evaluated the patient , patient was feeling better, and he was placed on a nonrebreather mask. ABG showed a pO2 of 183 pCO2 of 33 pH of 7.29. Patient responded well to diuresis, follow-up chest x-ray showed definite improvement compared to the chest x-ray done last night upon presentation to the ICU. His initial chest x-ray upon admission 2 days ago, showed no evidence of interstitial infiltrates or edema. There has been a definite change in the x-rays over the last 2 days. At any rate after evaluating the patient, I recommended that we place him on BiPAP, and he seems to be doing much better with BiPAP, this is mostly because of his obvious clinical features of obstructive sleep apnea and obesity/ hypoventilation syndrome. This morning, the patient seems to be doing better, and clearly does not repeat need to be intubated at this point. I believe his shortness of breath was most likely secondary to worsening pulmonary edema, and worsening anemia with pancytopenia, and possibility of sepsis is not entirely ruled out. Hence the patient will be kept on diuretics, bronchodilators, BiPAP , and antibiotics empirically. Review of Systems 12 point review of systems were obtained, please refer to pertinent positives and negatives in HPI. Past Medical History Past Medical History: Cancer, Diabetes Mellitus, GERD/Reflux, Hypertension, Pneumonia, Prostate Disorder, Rheumatoid Arthritis (RA), Sleep Apnea/CPAP/BIPAP Additional Past Medical History / Comment(s): bladder cancer HAD CHEMO TX AT [facility]. skin cancer REMOVED, SHINGLES- 20 YEARS AGO, DOES'NT USE HIS CPAP MACHINE ANYMORE. ?"IRREG HEART BEATOLD BY ONE DR HE HAD AND ANOTHER DR TOLD HIM HE DID'NT" History of Any Multi-Drug Resistant Organisms: None Reported Past Surgical History: Tonsillectomy Additional Past Surgical History / Comment(s): pt. states he has had skin cancer removed from his face, appendectomy, bladder cancer with cystoscopy, colonoscopy, tonsillectomy and adenoidectomy.SX FOR RT VOCAL CORD PARALYSIS.PT STATED HAD FLU/PNE/SHINGLES/TDAP BUT NOT SURE OF DATES-DR OFFICE CLOSED AT TIME OF THIS ADMIT. Past Anesthesia/Blood Transfusion Reactions: No Reported Reaction Past Psychological History: No Psychological Hx Reported Smoking Status: Never smoker Past Alcohol Use History: Occasional Additional Past Alcohol Use History / Comment(s): pt. states he drinks beer every couple weeks Past Drug Use History: None Reported - Past Family History Mother Family Medical History: Cancer Additional Family Medical History / Comment(s): breast cancer Father Family Medical History: Coronary Artery Disease (CAD), Myocardial Infarction (OK ) Brother(s) Family Medical History: No Reported History Daughter(s) Family Medical History: No Reported History Medications and Allergies Home Medications Medication Instructions Recorded Confirmed Type Diltiazem Cd [Cardizem CD] 240 mg PO DAILY 07/28/15 06/14/16 History Nebivolol HCl [Bystolic] 10 mg PO DAILY 07/28/15 06/14/16 History Fluticasone Nasal [place] [Flonase 2 spr EA NOSTRIL BID 04/19/16 06/14/16 History Nasal [place]] Glimepiride [Amaryl] 4 mg PO BID 04/19/16 06/14/16 History Multivitamins, Thera [Multivitamin] 1 tab PO DAILY 04/19/16 06/14/16 History Omeprazole 20 mg PO BID 04/19/16 06/14/16 History Allergies Allergy/AdvReac Type Severity Reaction Status Date / Time No Known Allergies Allergy Verified 06/14/16 09:04 Physical Exam Vitals: Vital Signs Temp Pulse Pulse Pulse Resp BP BP 06/18/16 13:00 71 19 166/83 06/18/16 12:00 99.1 F 66 15 157/72 06/18/16 11:58 99.1 F 71 19 157/72 06/18/16 11:55 99.1 F 70 20 157/72 06/18/16 11:45 99.4 F 64 20 155/73 06/18/16 11:00 71 18 143/70 06/18/16 10:00 68 12 136/66 06/18/16 09:00 82 16 143/69 06/18/16 08:00 98.2 F 81 26 H 152/74 06/18/16 07:10 72 06/18/16 07:08 97.4 F L 66 22 154/78 06/18/16 07:00 69 19 155/72 06/18/16 06:55 68 06/18/16 06:00 64 26 H 135/67 06/18/16 05:00 63 20 112/65 06/18/16 04:46 98 F 68 20 110/52 06/18/16 04:16 97.8 F 69 18 117/63 06/18/16 04:06 97 F L 71 20 118/54 06/18/16 04:00 98.1 F 73 18 105/56 06/18/16 03:00 72 16 125/68 06/18/16 02:50 68 22 127/71 06/18/16 02:30 70 16 145/71 06/18/16 02:28 96 06/18/16 02:18 77 06/18/16 02:00 75 20 150/78 06/18/16 01:36 97.2 F L 72 22 06/18/16 00:00 110 H 22 06/17/16 20:40 98.0 F 94 17 139/94 06/17/16 15:00 98.3 F 69 18 187/74 Pulse Ox 06/18/16 13:00 94 L 06/18/16 12:00 96 06/18/16 11:58 94 L 06/18/16 11:55 93 L 06/18/16 11:45 94 L 06/18/16 11:00 98 06/18/16 10:00 96 06/18/16 09:00 100 06/18/16 08:00 98 06/18/16 07:10 06/18/16 07:08 98 06/18/16 07:00 100 06/18/16 06:55 06/18/16 06:00 100 06/18/16 05:00 100 06/18/16 04:46 100 06/18/16 04:16 100 06/18/16 04:06 95 06/18/16 04:00 100 06/18/16 03:00 100 06/18/16 02:50 93 L 06/18/16 02:30 100 06/18/16 02:28 06/18/16 02:18 06/18/16 02:00 92 L 06/18/16 01:36 99 06/18/16 00:00 06/17/16 20:40 97 06/17/16 15:00 98 Intake and Output 06/17/16 06/18/16 06/18/16 22:59 06:59 14:59 Intake Total 80 755 Output Total 916 381 2713 Balance -400 -453 -799 Intake: IV 80 50 Sodium Chloride 0.9% 1, 80 50 000 ml @ 80 mls/hr IV . [id number] ZABRINA Rx#:[id number] Intake, IV Titration 100 Amount Magnesium Sulfate-D5w Pmx 100 1 gm In Dextrose/Water 1 100ml.bag @ 100 mls/hr IVPB Q1H ZABRINA Rx#: [id number] Blood Product 0 605 Platelet Pheresis Acda1 295 Unit [id number] Rc Pheresis 2 As3 Unit 0 310 [id number] Output: Urine 826 314 9480 Other: Voiding Method Toilet Indwelling Catheter Indwelling Catheter Urinal # Voids 2 - Constitutional General appearance: Present: mild distress, patient is on BiPAP at present. - EENT Eyes: Present: EOMI, PERRLA, pale ENT: Present: hearing grossly normal, normal oropharynx - Respiratory Respiratory: bilateral: diminished, rales - Cardiovascular Rhythm: regular Heart sounds: normal: S1, S2 - Gastrointestinal General gastrointestinal:: Obese soft, nontender, no megaly, no rebound, no guarding. - Integumentary Integumentary: Present: normal - Neurologic Neurologic: Present: CNII-XII intact - Musculoskeletal Musculoskeletal: Present: generalized weakness, strength equal bilaterally - Psychiatric Psychiatric: Present: A&O x's 3 Results - Laboratory Findings CBC and BMP: 06/18/16 10:40 06/18/16 10:40 ABG ABG pH 7.29 (7.35-7.45) L 06/18/16 00:44 ABG pCO2 33 mmHg (35-45) L 06/18/16 00:44 ABG pO2 183 mmHg (83-108) H 06/18/16 00:44 ABG O2 Saturation 99.0 % (94-97) H 06/18/16 00:44 PT/INR, D-dimer PT 14.9 sec (9.0-12.0) H 06/18/16 10:40 INR 1.5 (<1.1) 06/18/16 10:40 Abnormal lab findings: Abnormal Labs 06/14/16 06/15/16 06/15/16 20:11 08:07 10:57 WBC 1.3 L* RBC 2.28 L Hgb 8.0 L Hct 22.5 L MCH 35.1 H RDW 19.6 H Plt Count 5 L* Neutrophils # (Manual) 0.6 L Lymphocytes # (Manual) 0.5 L Nucleated RBCs Retic Count PT ABG pH ABG pCO2 ABG pO2 ABG HCO3 ABG Total CO2 ABG O2 Saturation Sodium Potassium Chloride BUN Creatinine Glucose POC Glucose (mg/dL) 195 H 150 H Hemoglobin A1c Uric Acid Calcium Phosphorus Ferritin AST Lactate Dehydrogenase Total Protein Total Protein (PEP) Albumin Amylase RBC Folate Urine Protein Urine Glucose (UA) Urine Blood Urine RBC Amorphous Sediment Hyaline Casts Urine Mucus Free [place] LC, Quant Crossmatch 06/15/16 06/15/16 06/15/16 10:57 10:57 11:01 WBC RBC Hgb Hct MCH RDW Plt Count Neutrophils # (Manual) Lymphocytes # (Manual) Nucleated RBCs Retic Count PT ABG pH ABG pCO2 ABG pO2 ABG HCO3 ABG Total CO2 ABG O2 Saturation Sodium Potassium 3.3 L Chloride BUN 24 H Creatinine Glucose 146 H POC Glucose (mg/dL) Hemoglobin A1c 6.3 H Uric Acid Calcium 8.2 L Phosphorus Ferritin 668 H AST Lactate Dehydrogenase Total Protein 5.5 L Total Protein (PEP) Albumin 3.1 L Amylase <30 L RBC Folate Urine Protein Urine Glucose (UA) Urine Blood Urine RBC Amorphous Sediment Hyaline Casts Urine Mucus Free [place] LC, Quant Crossmatch 06/15/16 06/15/16 06/15/16 12:58 13:25 13:25 WBC RBC Hgb Hct MCH RDW Plt Count Neutrophils # (Manual) Lymphocytes # (Manual) Nucleated RBCs Retic Count 4.4 H PT ABG pH ABG pCO2 ABG pO2 ABG HCO3 ABG Total CO2 ABG O2 Saturation Sodium Potassium Chloride BUN Creatinine Glucose POC Glucose (mg/dL) 137 H Hemoglobin A1c Uric Acid Calcium Phosphorus Ferritin AST Lactate Dehydrogenase Total Protein Total Protein (PEP) Albumin Amylase RBC Folate Urine Protein Urine Glucose (UA) Urine Blood Urine RBC Amorphous Sediment Hyaline Casts Urine Mucus Free [place] LC, Quant Crossmatch See Detail 06/15/16 06/15/16 06/15/16 13:25 13:25 16:38 WBC RBC Hgb Hct MCH RDW Plt Count Neutrophils # (Manual) Lymphocytes # (Manual) Nucleated RBCs Retic Count PT ABG pH ABG pCO2 ABG pO2 ABG HCO3 ABG Total CO2 ABG O2 Saturation Sodium Potassium Chloride BUN Creatinine Glucose POC Glucose (mg/dL) 112 H Hemoglobin A1c Uric Acid Calcium Phosphorus Ferritin AST Lactate Dehydrogenase Total Protein Total Protein (PEP) 6.0 L Albumin Amylase RBC Folate 866 H Urine Protein Urine Glucose (UA) Urine Blood Urine RBC Amorphous Sediment Hyaline Casts Urine Mucus Free [place] LC, Quant 2.49 H Crossmatch 06/15/16 06/15/16 06/16/16 19:56 20:07 07:08 WBC 2.1 L RBC 2.14 L Hgb 7.4 L Hct 21.2 L MCH RDW 19.9 H Plt Count 8 L* D Neutrophils # (Manual) 0.5 L Lymphocytes # (Manual) Nucleated RBCs 6 H Retic Count PT ABG pH ABG pCO2 ABG pO2 ABG HCO3 ABG Total CO2 ABG O2 Saturation Sodium Potassium Chloride BUN Creatinine Glucose POC Glucose (mg/dL) 67 L 66 L Hemoglobin A1c Uric Acid Calcium Phosphorus Ferritin AST Lactate Dehydrogenase Total Protein Total Protein (PEP) Albumin Amylase RBC Folate Urine Protein Urine Glucose (UA) Urine Blood Urine RBC Amorphous Sediment Hyaline Casts Urine Mucus Free [place] LC, Quant Crossmatch 06/16/16 06/16/16 06/16/16 07:08 07:37 08:06 WBC RBC Hgb Hct MCH RDW Plt Count Neutrophils # (Manual) Lymphocytes # (Manual) Nucleated RBCs Retic Count PT ABG pH ABG pCO2 ABG pO2 ABG HCO3 ABG Total CO2 ABG O2 Saturation Sodium Potassium 3.1 L Chloride 109 H BUN 22 H Creatinine Glucose 63 L POC Glucose (mg/dL) 61 L 60 L Hemoglobin A1c Uric Acid Calcium Phosphorus Ferritin AST Lactate Dehydrogenase 734 H Total Protein 5.8 L Total Protein (PEP) Albumin 3.3 L Amylase RBC Folate Urine Protein Urine Glucose (UA) Urine Blood Urine RBC Amorphous Sediment Hyaline Casts Urine Mucus Free [place] LC, Quant Crossmatch 06/16/16 06/16/16 06/17/16 08:51 16:37 07:18 WBC 2.7 L RBC 2.00 L Hgb 7.2 L Hct 19.8 L* MCH 35.8 H RDW 19.9 H Plt Count 6 L* Neutrophils # (Manual) 0.7 L Lymphocytes # (Manual) 0.8 L Nucleated RBCs 1 H Retic Count PT ABG pH ABG pCO2 ABG pO2 ABG HCO3 ABG Total CO2 ABG O2 Saturation Sodium Potassium Chloride BUN Creatinine Glucose POC Glucose (mg/dL) 106 H 147 H Hemoglobin A1c Uric Acid Calcium Phosphorus Ferritin AST Lactate Dehydrogenase Total Protein Total Protein (PEP) Albumin Amylase RBC Folate Urine Protein Urine Glucose (UA) Urine Blood Urine RBC Amorphous Sediment Hyaline Casts Urine Mucus Free [place] LC, Quant Crossmatch 06/17/16 06/17/16 06/17/16 07:18 07:50 12:01 WBC RBC Hgb Hct MCH RDW Plt Count Neutrophils # (Manual) Lymphocytes # (Manual) Nucleated RBCs Retic Count PT ABG pH ABG pCO2 ABG pO2 ABG HCO3 ABG Total CO2 ABG O2 Saturation Sodium Potassium 3.2 L Chloride 110 H BUN Creatinine Glucose 147 H POC Glucose (mg/dL) 156 H 166 H Hemoglobin A1c Uric Acid Calcium Phosphorus Ferritin AST Lactate Dehydrogenase Total Protein 5.9 L Total Protein (PEP) Albumin 3.4 L Amylase RBC Folate Urine Protein Urine Glucose (UA) Urine Blood Urine RBC Amorphous Sediment Hyaline Casts Urine Mucus Free [place] LC, Quant Crossmatch 06/17/16 06/17/16 06/18/16 16:37 20:38 00:01 WBC RBC Hgb Hct MCH RDW Plt Count Neutrophils # (Manual) Lymphocytes # (Manual) Nucleated RBCs Retic Count PT ABG pH ABG pCO2 ABG pO2 ABG HCO3 ABG Total CO2 ABG O2 Saturation Sodium Potassium Chloride BUN Creatinine Glucose POC Glucose (mg/dL) 174 H 222 H 376 H Hemoglobin A1c Uric Acid Calcium Phosphorus Ferritin AST Lactate Dehydrogenase Total Protein Total Protein (PEP) Albumin Amylase RBC Folate Urine Protein Urine Glucose (UA) Urine Blood Urine RBC Amorphous Sediment Hyaline Casts Urine Mucus Free [place] LC, Quant Crossmatch 06/18/16 06/18/16 06/18/16 00:02 00:44 04:13 WBC RBC Hgb Hct MCH RDW Plt Count Neutrophils # (Manual) Lymphocytes # (Manual) Nucleated RBCs Retic Count PT ABG pH 7.29 L ABG pCO2 33 L ABG pO2 183 H ABG HCO3 15 L ABG Total CO2 16 L ABG O2 Saturation 99.0 H Sodium Potassium Chloride BUN Creatinine Glucose POC Glucose (mg/dL) 382 H Hemoglobin A1c Uric Acid Calcium Phosphorus Ferritin AST Lactate Dehydrogenase Total Protein Total Protein (PEP) Albumin Amylase RBC Folate Urine Protein Trace H Urine Glucose (UA) Trace H Urine Blood Moderate H Urine RBC 171 H Amorphous Sediment Rare H Hyaline Casts 13 H Urine Mucus Rare H Free [place] LC, Quant Crossmatch 06/18/16 06/18/16 06/18/16 08:24 10:40 10:40 WBC 2.9 L RBC 2.21 L Hgb 7.3 L Hct 21.4 L MCH RDW 20.7 H Plt Count 9 L* Neutrophils # (Manual) 1.0 L Lymphocytes # (Manual) 0.7 L Nucleated RBCs 5 H Retic Count PT ABG pH ABG pCO2 ABG pO2 ABG HCO3 ABG Total CO2 ABG O2 Saturation Sodium 147 H Potassium Chloride 108 H BUN 21 H Creatinine 1.36 H Glucose 165 H POC Glucose (mg/dL) 179 H Hemoglobin A1c Uric Acid 9.2 H Calcium Phosphorus 4.7 H Ferritin AST 64 H Lactate Dehydrogenase Total Protein Total Protein (PEP) Albumin Amylase RBC Folate Urine Protein Urine Glucose (UA) Urine Blood Urine RBC Amorphous Sediment Hyaline Casts Urine Mucus Free [place] LC, Quant Crossmatch 06/18/16 06/18/16 10:40 11:42 WBC RBC Hgb Hct MCH RDW Plt Count Neutrophils # (Manual) Lymphocytes # (Manual) Nucleated RBCs Retic Count PT 14.9 H ABG pH ABG pCO2 ABG pO2 ABG HCO3 ABG Total CO2 ABG O2 Saturation Sodium Potassium Chloride BUN Creatinine Glucose POC Glucose (mg/dL) 157 H Hemoglobin A1c Uric Acid Calcium Phosphorus Ferritin AST Lactate Dehydrogenase Total Protein Total Protein (PEP) Albumin Amylase RBC Folate Urine Protein Urine Glucose (UA) Urine Blood Urine RBC Amorphous Sediment Hyaline Casts Urine Mucus Free [place] LC, Quant Crossmatch - Diagnostic Findings Chest x-ray: image reviewed (3 chest x-rays were reviewed, the initial one on presentation was relatively normal, follow-up chest x-ray last night was consistent with pulmonary edema, and a follow-up chest x-ray this morning was improved.) Assessment and Plan Plan: Impression: 1 acute hypoxic respiratory failure, multifactorial, secondary to fluid overload , profound anemia and pancytopenia, obstructive sleep apnea syndrome, obesity hypoventilation syndrome. 2: Pancytopenia most likely secondary to acute leukemia or possible advanced myelodysplasia. Hence the patient will need to have a bone marrow aspiration and biopsy, and I believe this is scheduled to be done on 06/19/2016. 3 possible sepsis considering the patient is relatively immunocompromised, and TD antibiotics, prefer to broaden the spectrum of coverage, and I would likely recommend giving the patient vancomycin in addition to the Levaquin. 4 history of multiple comorbidities including bladder cancer, diabetes, hypertension, prostate cancer, rheumatoid arthritis, obstructive sleep apnea syndrome, and history of vocal cord paralysis requiring surgical intervention. Recommendation: Keep the patient in the ICU, transfuse with platelets for his low platelets below 10,000, patient will need a venous access, however considering his low platelets, I prefer we arrange for him to have platelet transfusion in a.m., and arrange for PICC line in a.m. Patient is also going for bone marrow aspiration biopsy in a.m. In the meantime continue with diuretics, cut down the IV fluids, continue bronchodilators, antibiotics empirically, and close monitoring in the intensive care unit. I explained to the patient all the clinical problems we are dealing with, and we will follow. Prognosis is guarded. Time with Patient: Greater than 30
[2016-06-18] MEDS: LEVOFLOXACIN 500MG-D5W PMX 500 MG in DEXTROSE/WATER 1 100ML.BAG IVPB SCH (14:29)
[2016-06-18] MEDS ORDERED: VANCOMYCIN 1,750 MG in SODIUM CHLORIDE 0.9% 250 ML IVPB ONE (15:00)
[2016-06-18 17:26] LABS: Glucose,Whole Blood 200 mg/dL (75-99)
[2016-06-18] MEDS: MORPHINE SULFATE 2 MG/ML SYRINGE IVP PRN ×2 (17:35→21:18)
[2016-06-18 21:13] LABS: Glucose,Whole Blood 182 mg/dL (75-99)
[2016-06-19] MEDS: MORPHINE SULFATE 2 MG/ML SYRINGE IVP PRN ×3 (01:03→17:21)
[2016-06-19] MEDS: IPRATROPIUM-ALBUTEROL 3 ML NEB INHALATION PRN (05:09)
[2016-06-19 05:19] LABS: ALT 38 U/L (21-72); AST 46 U/L (17-59); Alkaline Phosphatase 67 U/L (38-126); Anion Gap 11 mmol/L; Blood Urea Nitrogen 22 mg/dL (9-20); Calcium 8.5 mg/dL (8.4-10.2); Carbon Dioxide 29 mmol/L (22-30); Chloride 107 mmol/L (98-107); Glucose 156 mg/dL (74-99); Non-African American GFR(MDRD) 59 (>60 ml/min/1.73 sqM); Potassium 3.8 mmol/L (3.5-5.1); Sodium 147 mmol/L (137-145); Total Bilirubin 0.8 mg/dL (0.2-1.3); Total Protein 6.1 g/dL (6.3-8.2)
[2016-06-19 05:32] LABS: Anisocytosis Moderate; CH 33.9; CHCM 34.9; HCT 19.4 % (39.0-53.0); HDW 3.97; HGB 6.7 gm/dL (13.0-17.5); Immature Gran Flag Marked; MCH 33.8 pg (25.0-35.0); MCHC 34.5 g/dL (31.0-37.0); MCV 98.2 fL (80.0-100.0); Macrocytosis Moderate; Mean Platelet Volume 9.7; Poikilocytosis Slight; RBC 1.97 m/uL (4.30-5.90); RDW 20.9 % (11.5-15.5); WBC (Perox) 3.44
[2016-06-19 06:05] LABS: Add Differential Manual Differential
[2016-06-19 06:23] LABS: Blast Cells 10.5; Myelocytes % 9.5 %; Nucleated Red Blood Cells 13 /100 WBC (0-0); Total Cells Counted 200
[2016-06-19 06:24] LABS: Manual Review Performed; Polychromasia Present
[2016-06-19] MEDS ORDERED: PROPOFOL 10 MG/ML 20 ML VIAL IV ONE (07:19)
[2016-06-19] MEDS ORDERED: IV FLUID CONTINUATION 1,000 ML IV ONE (07:22)
[2016-06-19] MEDS: IPRATROPIUM-ALBUTEROL 3 ML NEB INHALATION SCH ×4 (08:12→19:24)
--- NOTE | 2016-06-19 08:14 | XR ---
EXAMINATION TYPE: XR chest 1V portable DATE OF EXAM: 06/19/2016 6:43 AM COMPARISON: 06/18/2016 HISTORY: Shortness of breath FINDINGS: Noted is pulmonary venous congestion with scattered infiltrates. There is also cardiomegaly and small effusions. IMPRESSION: Findings compatible with stable congestive failure. Infiltrates of other etiology are not excluded. Clinical correlation and progress studies are recommended.
[2016-06-19] MEDS: INSULIN LISPRO (humaLOG) 300 UNIT/3 ML VIAL SQ SCH ×4 (08:18→20:40)
[2016-06-19 08:19] LABS: Glucose,Whole Blood 147 mg/dL (75-99)
[2016-06-19] MEDS: FLUTICASONE 50MCG/SPRAY NASAL 16GM EA NOSTRIL SCH ×2 (08:20→20:30)
[2016-06-19] MEDS: VANCOMYCIN 1,750 MG in SODIUM CHLORIDE 0.9% 250 ML IVPB SCH (08:22)
[2016-06-19] MEDS ORDERED: POTASSIUM CHLORIDE ER 20 MEQ TAB.ER PO SCH (09:00)
[2016-06-19] MEDS: FLUCONAZOLE 100 MG TAB PO SCH (09:27)
[2016-06-19] MEDS: NEBIVOLOL 5 MG TAB PO SCH (09:27)
[2016-06-19] MEDS: DILTIAZEM CD 240 MG CAP.ER.24H PO SCH (09:27)
--- NOTE | 2016-06-19 10:13 | P.PN ---
Subjective Patient presented to the hospital with nausea vomiting diarrhea. This has resolved. Stool for C. diff negative. Also was noted to be in pancytopenia. 06/19/2016 patient was transferred to the ICU over the weekend due to acute respiratory failure and found to have CHF exacerbation. Patient received 2 doses of IV Lasix. He is on BiPAP during the evening and 6 L nasal cannula during the day. Pulmonary service and oncology are following. Patient underwent bone marrow biopsy this morning. Patient lying in bed comfortably. Denies any chest pain or shortness of breath. Denies any nausea or vomiting. Last bowel movement a few days ago. Has Thompson catheter in place urine is dark with some blood noted. Slightly diminished urine output. Objective - Vital Signs Vital signs: Vital Signs Temp 98.3 F 06/19/16 08:00 Pulse 69 06/19/16 09:00 Resp 06/19/16 09:00 BP 114/59 06/19/16 09:00 Pulse Ox 99 06/19/16 09:00 Intake & Output 06/18/16 06/19/16 06/19/16 18:59 06:59 18:59 Intake Total 1015 370 160 Output Total 2130 658 60 Balance -1115 -288 100 Weight 108 kg Intake: IV 110 370 160 Sodium Chloride 0.9% 1, 110 370 60 000 ml @ 30 mls/hr IV . Q24H [facility] Rx#:[id number] Intake, IV Titration 300 Amount Levofloxacin 500Mg-D5w 100 Pmx 500 mg In Dextrose/ Water 1 100ml.bag @ 100 mls/hr IVPB Q24H [facility] Rx#: [id number] Magnesium Sulfate-D5w Pmx 200 1 gm In Dextrose/Water 1 100ml.bag @ 100 mls/hr IVPB Q1H [facility] Rx#: [id number] Blood Product 605 Platelet Pheresis Acda1 295 Unit [id number] Rc Pheresis 2 As3 Unit 310 [id number] Output: Urine 2130 658 60 Other: Voiding Method Indwelling Catheter Indwelling Catheter - Exam Head normocephalic Neck supple Lungs wheezing noted bilaterally Heart regular rate and rhythm S1-S2, no rub or gallop Abdomen is soft nontender nondistended positive bowel sounds no hepatosplenomegaly Extremities no edema Neuro alert and orientated to 3 Skin: Bruising throughout body. - Labs CBC & Chem 7: 06/19/16 04:47 06/19/16 04:47 Labs: Abnormal Lab Results - Last 24 Hours (Table) 06/18/16 06/18/16 06/18/16 Range/Units 10:40 10:40 10:40 WBC 2.9 L (3.8-10.6) k/uL RBC 2.21 L (4.30-5.90) m/uL Hgb 7.3 L (13.0-17.5) gm/dL Hct 21.4 L (39.0-53.0) % RDW 20.7 H (11.5-15.5) % Plt Count 9 L* (150-450) k/uL Neutrophils # (Manual) 1.0 L (1.3-7.7) k/uL Lymphocytes # (Manual) 0.7 L (1.0-4.8) k/uL Nucleated RBCs 5 H (0-0) /100 WBC PT 14.9 H (9.0-12.0) sec Sodium 147 H (137-145) mmol/L Chloride 108 H (98-107) mmol/L BUN 21 H (9-20) mg/dL Creatinine 1.36 H (0.66-1.25) mg/dL Glucose 165 H (74-99) mg/dL POC Glucose (mg/dL) (75-99) mg/dL Uric Acid 9.2 H (3.5-8.5) mg/dL Phosphorus 4.7 H (2.5-4.5) mg/dL AST 64 H (17-59) U/L Total Protein (6.3-8.2) g/dL Crossmatch 06/18/16 06/18/16 06/18/16 Range/Units 11:42 17:22 21:12 WBC (3.8-10.6) k/uL RBC (4.30-5.90) m/uL Hgb (13.0-17.5) gm/dL Hct (39.0-53.0) % RDW (11.5-15.5) % Plt Count (150-450) k/uL Neutrophils # (Manual) (1.3-7.7) k/uL Lymphocytes # (Manual) (1.0-4.8) k/uL Nucleated RBCs (0-0) /100 WBC PT (9.0-12.0) sec Sodium (137-145) mmol/L Chloride (98-107) mmol/L BUN (9-20) mg/dL Creatinine (0.66-1.25) mg/dL Glucose (74-99) mg/dL POC Glucose (mg/dL) 157 H 200 H 182 H (75-99) mg/dL Uric Acid (3.5-8.5) mg/dL Phosphorus (2.5-4.5) mg/dL AST (17-59) U/L Total Protein (6.3-8.2) g/dL Crossmatch 06/19/16 06/19/16 06/19/16 Range/Units 04:47 04:47 06:27 WBC 3.0 L (3.8-10.6) k/uL RBC 1.97 L (4.30-5.90) m/uL Hgb 6.7 L* (13.0-17.5) gm/dL Hct 19.4 L* (39.0-53.0) % RDW 20.9 H (11.5-15.5) % Plt Count 15 L* D (150-450) k/uL Neutrophils # (Manual) 1.0 L (1.3-7.7) k/uL Lymphocytes # (Manual) 0.8 L (1.0-4.8) k/uL Nucleated RBCs 13 H (0-0) /100 WBC PT (9.0-12.0) sec Sodium 147 H (137-145) mmol/L Chloride (98-107) mmol/L BUN 22 H (9-20) mg/dL Creatinine (0.66-1.25) mg/dL Glucose 156 H (74-99) mg/dL POC Glucose (mg/dL) (75-99) mg/dL Uric Acid (3.5-8.5) mg/dL Phosphorus (2.5-4.5) mg/dL AST (17-59) U/L Total Protein 6.1 L (6.3-8.2) g/dL Crossmatch See Detail 06/19/16 Range/Units 08:17 WBC (3.8-10.6) k/uL RBC (4.30-5.90) m/uL Hgb (13.0-17.5) gm/dL Hct (39.0-53.0) % RDW (11.5-15.5) % Plt Count (150-450) k/uL Neutrophils # (Manual) (1.3-7.7) k/uL Lymphocytes # (Manual) (1.0-4.8) k/uL Nucleated RBCs (0-0) /100 WBC PT (9.0-12.0) sec Sodium (137-145) mmol/L Chloride (98-107) mmol/L BUN (9-20) mg/dL Creatinine (0.66-1.25) mg/dL Glucose (74-99) mg/dL POC Glucose (mg/dL) 147 H (75-99) mg/dL Uric Acid (3.5-8.5) mg/dL Phosphorus (2.5-4.5) mg/dL AST (17-59) U/L Total Protein (6.3-8.2) g/dL Crossmatch Microbiology - Last 24 Hours (Table) 06/18/16 04:13 Urine Culture - Preliminary Urine,Catheterized Assessment and Plan Plan: 1. Pancytopenia exact etiology unclear. Patient will be evaluated by hematology. Patient had bone marrow biopsy today. He will 11 6.7 white count 3 and platelets 15. Patient receiving 1 unit of blood and unit of platelets. Scheduled for PICC line placement today. 2. Acute hypoxic respiratory failure: Likely secondary to fluid overload. Patient is receive 2 doses of IV Lasix. Pulmonary service is following. Chest x-ray showing stable CHF. Awaiting BNP level 3. Generalized weakness: Multifactorial due to the vomiting and diarrhea and pancytopenia. Computed tomography scan of the brain shows no acute intracranial abnormality. 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 4. Headache reported in the emergency room now resolved. Computed tomography scan of the brain no acute change 5. Essential hypertension with accelerated hypertension during this admission. Blood pressure stable. 6. Diabetes mellitus type 2. Patient did have episode of hypoglycemia. Discontinue the Amaryl. Continue sliding scale Coverage. Hemoglobin A1c 6.3 7. 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 Surgery completed in fall 2015. Patient reports there are no findings cancer. 8. History of rheumatoid arthritis 9. Hypokalemia. Patient receiving potassium supplement. 10. Nausea vomiting and diarrhea 3 days. Symptoms have resolved. Continue the Zofran as needed. Possibly due to a gastroenteritis. Continue to monitor. LFTs are normal. Amylase and lipase normal GI prophylaxis Protonix and DVT prophylaxis SCDs
--- NOTE | 2016-06-19 10:42 | P.PN ---
Subjective This is a very pleasant 75-year-old gentleman who was admitted on 06/14/2016 with profound weakness and fatigue. He was found to be pancytopenic with a white count of 1.4, hemoglobin 9.4 and platelets of 7000. A previous emergency room visit in March 2016 revealed platelets that 143,000 and a white count of 2.6. He was initially admitted to the regular medical floor however 2 nights ago he developed worsening shortness of breath and was transferred here to the intensive care unit. He was seen yesterday by Dr. Ramos. His chest x- ray did show evidence of interstitial infiltrate/edema. He was treated with IV Lasix and BiPAP. He is seen again today in follow-up. He is currently awake and alert. He is maintaining O2 saturations in the low 90s on 10 L of high flow nasal cannula. He did utilize the BiPAP throughout the evening. He appears somewhat dyspneic even at rest. He did undergo a bone marrow biopsy by Dr. Quarles this morning. There is concerns regarding a new diagnosis of acute leukemia or advanced myelodysplasia. Results of which are pending. This morning's lab reveal a WBC 3.0 hemoglobin 6.7 and platelet count of 15,000. He has received 2 units of platelets and 1 unit of packed red blood cells thus far. Objective - Vital Signs Vital signs: Vital Signs Temp 98.3 F 06/19/16 08:00 Pulse 73 06/19/16 10:00 Resp 19 06/19/16 10:00 BP 143/58 06/19/16 10:00 Pulse Ox 100 06/19/16 10:00 Intake & Output 06/18/16 06/19/16 06/19/16 18:59 06:59 18:59 Intake Total 1015 370 190 Output Total 2130 658 100 Balance -1115 -288 90 Weight 108 kg Intake: IV 110 370 190 Sodium Chloride 0.9% 1, 110 370 90 000 ml @ 30 mls/hr IV . Q24H [facility] Rx#:[id number] Intake, IV Titration 300 Amount Levofloxacin 500Mg-D5w 100 Pmx 500 mg In Dextrose/ Water 1 100ml.bag @ 100 mls/hr IVPB Q24H [facility] Rx#: [id number] Magnesium Sulfate-D5w Pmx 200 1 gm In Dextrose/Water 1 100ml.bag @ 100 mls/hr IVPB Q1H [facility] Rx#: [id number] Blood Product 605 Platelet Pheresis Acda1 295 Unit [id number] Rc Pheresis 2 As3 Unit 310 [id number] Output: Urine 2130 658 100 Post Void Residual 0 Other: Voiding Method Indwelling Catheter Indwelling Catheter - Exam GENERAL EXAM: Alert, appears short of breath. Weak. HEAD: Normocephalic. EYES: Normal reaction of pupils, equal size. NOSE: Clear with pink turbinates. THROAT: There is crowding the posterior pharynx. No erythema or exudates. NECK: Short. No masses, no JVD. CHEST: No chest wall deformity. LUNGS: Equal air entry with crackles in the posterior bases more so on the left lung. CVS: S1 and S2 normal with no audible murmurs, regular rhythm. ABDOMEN: Soft, normal bowel sounds, no guarding or rigidity. SPINE: Kyphoscoliosis SKIN: No rashes CENTRAL NERVOUS SYSTEM: No focal deficits, tone is normal in all 4 extremities. Extremities: There is trace peripheral edema. No clubbing, no cyanosis. Peripheral pulses are intact. - Labs CBC & Chem 7: 06/19/16 04:47 06/19/16 04:47 Labs: Abnormal Lab Results - Last 24 Hours (Table) 06/18/16 06/18/16 06/18/16 Range/Units 10:40 10:40 10:40 WBC 2.9 L (3.8-10.6) k/uL RBC 2.21 L (4.30-5.90) m/uL Hgb 7.3 L (13.0-17.5) gm/dL Hct 21.4 L (39.0-53.0) % RDW 20.7 H (11.5-15.5) % Plt Count 9 L* (150-450) k/uL Neutrophils # (Manual) 1.0 L (1.3-7.7) k/uL Lymphocytes # (Manual) 0.7 L (1.0-4.8) k/uL Nucleated RBCs 5 H (0-0) /100 WBC PT 14.9 H (9.0-12.0) sec Sodium 147 H (137-145) mmol/L Chloride 108 H (98-107) mmol/L BUN 21 H (9-20) mg/dL Creatinine 1.36 H (0.66-1.25) mg/dL Glucose 165 H (74-99) mg/dL POC Glucose (mg/dL) (75-99) mg/dL Uric Acid 9.2 H (3.5-8.5) mg/dL Phosphorus 4.7 H (2.5-4.5) mg/dL AST 64 H (17-59) U/L Total Protein (6.3-8.2) g/dL Crossmatch 06/18/16 06/18/16 06/18/16 Range/Units 11:42 17:22 21:12 WBC (3.8-10.6) k/uL RBC (4.30-5.90) m/uL Hgb (13.0-17.5) gm/dL Hct (39.0-53.0) % RDW (11.5-15.5) % Plt Count (150-450) k/uL Neutrophils # (Manual) (1.3-7.7) k/uL Lymphocytes # (Manual) (1.0-4.8) k/uL Nucleated RBCs (0-0) /100 WBC PT (9.0-12.0) sec Sodium (137-145) mmol/L Chloride (98-107) mmol/L BUN (9-20) mg/dL Creatinine (0.66-1.25) mg/dL Glucose (74-99) mg/dL POC Glucose (mg/dL) 157 H 200 H 182 H (75-99) mg/dL Uric Acid (3.5-8.5) mg/dL Phosphorus (2.5-4.5) mg/dL AST (17-59) U/L Total Protein (6.3-8.2) g/dL Crossmatch 06/19/16 06/19/16 06/19/16 Range/Units 04:47 04:47 06:27 WBC 3.0 L (3.8-10.6) k/uL RBC 1.97 L (4.30-5.90) m/uL Hgb 6.7 L* (13.0-17.5) gm/dL Hct 19.4 L* (39.0-53.0) % RDW 20.9 H (11.5-15.5) % Plt Count 15 L* D (150-450) k/uL Neutrophils # (Manual) 1.0 L (1.3-7.7) k/uL Lymphocytes # (Manual) 0.8 L (1.0-4.8) k/uL Nucleated RBCs 13 H (0-0) /100 WBC PT (9.0-12.0) sec Sodium 147 H (137-145) mmol/L Chloride (98-107) mmol/L BUN 22 H (9-20) mg/dL Creatinine (0.66-1.25) mg/dL Glucose 156 H (74-99) mg/dL POC Glucose (mg/dL) (75-99) mg/dL Uric Acid (3.5-8.5) mg/dL Phosphorus (2.5-4.5) mg/dL AST (17-59) U/L Total Protein 6.1 L (6.3-8.2) g/dL Crossmatch See Detail 06/19/16 Range/Units 08:17 WBC (3.8-10.6) k/uL RBC (4.30-5.90) m/uL Hgb (13.0-17.5) gm/dL Hct (39.0-53.0) % RDW (11.5-15.5) % Plt Count (150-450) k/uL Neutrophils # (Manual) (1.3-7.7) k/uL Lymphocytes # (Manual) (1.0-4.8) k/uL Nucleated RBCs (0-0) /100 WBC PT (9.0-12.0) sec Sodium (137-145) mmol/L Chloride (98-107) mmol/L BUN (9-20) mg/dL Creatinine (0.66-1.25) mg/dL Glucose (74-99) mg/dL POC Glucose (mg/dL) 147 H (75-99) mg/dL Uric Acid (3.5-8.5) mg/dL Phosphorus (2.5-4.5) mg/dL AST (17-59) U/L Total Protein (6.3-8.2) g/dL Crossmatch Microbiology - Last 24 Hours (Table) 06/18/16 04:13 Urine Culture - Preliminary Urine,Catheterized Assessment and Plan Plan: Impression: #1 Acute hypoxic respiratory failure, multifactorial, secondary to fluid volume overload, profound anemia and pancytopenia, obstructive sleep apnea syndrome, obesity/hypoventilation syndrome. #2 Pancytopenia secondary to suspected acute leukemia versus advanced myelodysplasia. Bone marrow biopsy is pending. The patient has received 2 units of platelets and 1 unit of packed red blood cells thus far. One more unit of each is pending. #3 Sepsis secondary to immunocompromise. Currently covered with vancomycin and Levaquin. #4 History of bladder cancer. #5 Diabetes denies. #6 Hypertension. #7 Rheumatoid arthritis. #8 History of vocal cord paralysis requiring surgical intervention. Plan: The patient was seen and evaluated by Dr. Root. His chest x-ray and labs were reviewed. We'll place the patient back on the BiPAP at 12 over 4 and 45% FiO2. Continue bronchodilators 4 times a day and when necessary. A PICC line is pending. A second unit of packed red blood cells and a third unit of platelets are pending. He'll remain here in the intensive care unit another 24 hours. We 'll continue to follow make further recommendations based on his clinical status.
[2016-06-19] MEDS ORDERED: FUROSEMIDE 10 MG/ML 4 ML VIAL IV STA (11:01)
[2016-06-19] MEDS: PANTOPRAZOLE 40 MG/10 ML VIAL IVP SCH (11:46)
[2016-06-19] MEDS: MULTIVITAMINS, THERA 1 EACH TAB PO SCH (11:46)
[2016-06-19] MEDS ORDERED: POTASSIUM CHLORIDE ER 20 MEQ TAB.ER PO ONE (12:00)
[2016-06-19 12:38] LABS: Glucose,Whole Blood 162 mg/dL (75-99)
[2016-06-19 12:48] LABS: Glucose,Whole Blood 161 mg/dL (75-99)
[2016-06-19] MEDS ORDERED: LIDOCAINE 2% INJ 20 MG/ML SQ ONE (12:52)
--- NOTE | 2016-06-19 13:21 | XR ---
EXAMINATION TYPE: XR chest 1V portable DATE OF EXAM: 06/19/2016 1:17 PM COMPARISON: 06/19/2016 HISTORY: SOB, Follow Up. PICC line placement FINDINGS: Left-sided PICC line demonstrates its distal tip at the mid SVC. No evidence for pneumothorax. Scattered patchy infiltrates persist. Stable appearance of the cardio-mediastinal structures at this time. Pleural effusion unchanged. IMPRESSION: 1. PICC line as noted. Scattered patchy infiltrates as noted.
[2016-06-19] MEDS: SODIUM CHLORIDE 0.9% 1,000 ML IV SCH (13:53)
[2016-06-19] MEDS: LEVOFLOXACIN 500MG-D5W PMX 500 MG in DEXTROSE/WATER 1 100ML.BAG IVPB SCH (14:32)
[2016-06-19 15:25] LABS: Bone Marrow Cell Count Performed
[2016-06-19 18:04] LABS: Glucose,Whole Blood 155 mg/dL (75-99)
[2016-06-19 20:37] LABS: Glucose,Whole Blood 159 mg/dL (75-99)
--- NOTE | 2016-06-19 22:06 | P.PCN ---
Date of Procedure: 06/19/16 Preoperative Diagnosis: Pancytopenia, suspected Acute leukemia Postoperative Diagnosis: Same Procedure(s) Performed: Bone marrow Aspiration and biopsy Anesthesia: MAC Surgeon: Jose J Quarles Head Teacher #1: Stated None Head Teacher #2: Stated None Estimated Blood Loss (ml): 10 Pathology: other (marrow aspirate and biopsy sent) Condition: stable Disposition: ICU Indications for Procedure: As above Operative Findings: Adequate sample Description of Procedure: The procedure was explained in detail to the pt on the floor. Informed consent was obtained. He was placed in the left lateral decubitus position, and the area over both iliac crests cleaned and drepped with chlorhexidine and sterile draping. IV sedation was then initiated. Local anesthesia was administered with lidocaine. A Jamshidi needle was then inserted. On the initial pass, the sample was scant. Thus 2 other passes were made with adequate sample being obtained. On withdrawal of the needle, hemostasis was easily achieved. Blood loss was minimal and recovery from sedation was satisfactory. He appeared to have tolerated the procedure well without any obvious complications.
--- NOTE | 2016-06-19 22:11 | P.PN ---
Subjective Principal diagnosis: Pancytopenia The pt is improved , but still remains SOB, and is utilising BiPAP. No unusual bleeding noted Objective - Vital Signs Vital signs: Vital Signs Temp 97.9 F 06/19/16 20:00 Pulse 85 06/19/16 21:00 Resp 18 06/19/16 21:00 BP 162/77 06/19/16 21:00 Pulse Ox 99 06/19/16 21:00 Intake & Output 06/19/16 06/19/16 06/20/16 06:59 18:59 06:59 Intake Total 370 1139 90 Output Total 658 1120 115 Balance -288 19 - Weight 108 kg Intake: IV 370 430 90 Sodium Chloride 0.9% 1, 370 330 90 000 ml @ 30 mls/hr IV . Q24H [facility] Rx#:[id number] Intake, IV Titration 100 Amount Levofloxacin 500Mg-D5w 100 Pmx 500 mg In Dextrose/ Water 1 100ml.bag @ 100 mls/hr IVPB Q24H [facility] Rx#: [id number] Blood Product 609 Platelet Irr Pheresis 299 Acda1 Unit [id number] Rc Pheresis 2 As3 Unit 310 [id number] Output: Urine 658 1120 115 Post Void Residual 0 Other: Voiding Method Indwelling Catheter Indwelling Catheter - Constitutional General appearance: Present: mild distress - EENT Eyes: Present: EOMI, PERRLA ENT: Present: hearing grossly normal, normal oropharynx - Respiratory Respiratory: bilateral: rales (mild) - Cardiovascular Rhythm: regular Heart sounds: normal: S1, S2 - Gastrointestinal General gastrointestinal: Present: normal bowel sounds, soft - Neurologic Neurologic: Present: CNII-XII intact - Musculoskeletal Musculoskeletal: Present: generalized weakness - Psychiatric Psychiatric: Present: A&O x's 3 - Labs CBC & Chem 7: 06/19/16 04:47 06/19/16 14:15 Labs: Abnormal Lab Results - Last 24 Hours (Table) 06/15/16 06/19/16 06/19/16 Range/Units 13:25 04:47 04:47 WBC 3.0 L (3.8-10.6) k/uL RBC 1.97 L (4.30-5.90) m/uL Hgb 6.7 L* (13.0-17.5) gm/dL Hct 19.4 L* (39.0-53.0) % RDW 20.9 H (11.5-15.5) % Plt Count 15 L* D (150-450) k/uL Neutrophils # (Manual) 1.0 L (1.3-7.7) k/uL Lymphocytes # (Manual) 0.8 L (1.0-4.8) k/uL Nucleated RBCs 13 H (0-0) /100 WBC Sodium 147 H (137-145) mmol/L BUN 22 H (9-20) mg/dL Glucose 156 H (74-99) mg/dL POC Glucose (mg/dL) (75-99) mg/dL Total Protein 6.1 L (6.3-8.2) g/dL Total Protein (PEP) 6.0 L (6.2-8.2) g/dL Albumin (PEP) 3.73 L (3.80-4.90) g/dL Gamma Globulins 0.49 L (0.70-1.50) g/dL Crossmatch 06/19/16 06/19/16 06/19/16 Range/Units 06:27 08:17 12:36 WBC (3.8-10.6) k/uL RBC (4.30-5.90) m/uL Hgb (13.0-17.5) gm/dL Hct (39.0-53.0) % RDW (11.5-15.5) % Plt Count (150-450) k/uL Neutrophils # (Manual) (1.3-7.7) k/uL Lymphocytes # (Manual) (1.0-4.8) k/uL Nucleated RBCs (0-0) /100 WBC Sodium (137-145) mmol/L BUN (9-20) mg/dL Glucose (74-99) mg/dL POC Glucose (mg/dL) 147 H 162 H (75-99) mg/dL Total Protein (6.3-8.2) g/dL Total Protein (PEP) (6.2-8.2) g/dL Albumin (PEP) (3.80-4.90) g/dL Gamma Globulins (0.70-1.50) g/dL Crossmatch See Detail 06/19/16 06/19/16 06/19/16 Range/Units 12:46 18:02 20:35 WBC (3.8-10.6) k/uL RBC (4.30-5.90) m/uL Hgb (13.0-17.5) gm/dL Hct (39.0-53.0) % RDW (11.5-15.5) % Plt Count (150-450) k/uL Neutrophils # (Manual) (1.3-7.7) k/uL Lymphocytes # (Manual) (1.0-4.8) k/uL Nucleated RBCs (0-0) /100 WBC Sodium (137-145) mmol/L BUN (9-20) mg/dL Glucose (74-99) mg/dL POC Glucose (mg/dL) 161 H 155 H 159 H (75-99) mg/dL Total Protein (6.3-8.2) g/dL Total Protein (PEP) (6.2-8.2) g/dL Albumin (PEP) (3.80-4.90) g/dL Gamma Globulins (0.70-1.50) g/dL Crossmatch Microbiology - Last 24 Hours (Table) 06/18/16 04:13 Urine Culture - Final Urine,Catheterized Assessment and Plan (1) Pancytopenia Narrative/Plan: No obvious bleeding noted. His plt count is increased to 15K today. He will receive additional plt prior to PICC placement. 1 U PRBC was ordered for Hgb < 7. Continue to monitor with supportive transfusions as needed. Bone marrow was performed today. The case was d/w the family in detail. Status: Acute (2) Acute respiratory failure Narrative/Plan: The pt is improving with diuresis, and BiPAP support Status: Acute
[2016-06-19] MEDS ORDERED: LORazepam 2 MG/ML SYRINGE IV PRN (23:39)
[2016-06-20] MEDS ORDERED: POTASSIUM CHLORIDE ER 20 MEQ TAB.ER PO SCH
[2016-06-20] MEDS: ATROPINE SULFATE 0.1 MG/ML 10ML SYRINGE ONE ×2 (01:28→23:41)
[2016-06-20 04:11] LABS: Anisocytosis Moderate; CH 33.2; CHCM 35.9; HDW 4.12; Hyperchromasia Slight; Immature Gran Flag Marked; MCH 32.3 pg (25.0-35.0); MCHC 34.5 g/dL (31.0-37.0); MCV 93.6 fL (80.0-100.0); Macrocytosis Slight; Mean Platelet Volume 8.4; Poikilocytosis Moderate; RBC 2.09 m/uL (4.30-5.90); RDW 21.8 % (11.5-15.5); WBC (Perox) 3.47
[2016-06-20 04:25] LABS: HCT 19.6 % (39.0-53.0); HGB 6.8 gm/dL (13.0-17.5)
[2016-06-20 04:30] LABS: ALT 35 U/L (21-72); AST 51 U/L (17-59); Alkaline Phosphatase 65 U/L (38-126); Anion Gap 10 mmol/L; Blood Urea Nitrogen 25 mg/dL (9-20); Calcium 8.4 mg/dL (8.4-10.2); Carbon Dioxide 28 mmol/L (22-30); Chloride 105 mmol/L (98-107); Glucose 198 mg/dL (74-99); Non-African American GFR(MDRD) 54 (>60 ml/min/1.73 sqM); Potassium 4.1 mmol/L (3.5-5.1); Sodium 143 mmol/L (137-145); Total Bilirubin 0.8 mg/dL (0.2-1.3); Total Protein 5.8 g/dL (6.3-8.2)
[2016-06-20 05:20] LABS: Add Differential Manual Differential
[2016-06-20 05:28] LABS: Blast Cells 9.5; Manual Review Performed; Metamyelocytes % 9.5 %; Nucleated Red Blood Cells 8 /100 WBC (0-0); Promyelocytes % 2.5 %; Total Cells Counted 200; WBC 3.5 k/uL (3.8-10.6)
[2016-06-20 05:29] LABS: Polychromasia Present; Rouleaux Present
[2016-06-20 08:01] LABS: Glucose,Whole Blood 152 mg/dL (75-99)
[2016-06-20] MEDS: IPRATROPIUM-ALBUTEROL 3 ML NEB INHALATION SCH ×4 (08:08→19:31)
--- NOTE | 2016-06-20 08:23 | XR ---
EXAMINATION TYPE: XR chest 1V DATE OF EXAM: 06/20/2016 6:38 AM COMPARISON: 06/19/2016 HISTORY: 75 year-old male shortness of breath TECHNIQUE: Single frontal view of the chest is obtained. FINDINGS: Heart remains enlarged. Diffuse interstitial and patchy airspace opacities persist throughout the cody gs, possibly slightly increased on the right. Some hazy density at the left base. Left PICC tip proba talita at the upper SVC level. IMPRESSION: Correlate for CHF and pulmonary edema, stable to minimally worsened on the right. Possible trace left pleural effusion. Pneumonia should be excluded on a clinical basis.
--- NOTE | 2016-06-20 08:41 | P.PN ---
Subjective Progress note dated 06/20/2016 This is a 75-year-old woman admitted on June 14 with profound weakness and fatigue. He was found to have pancytopenia. His initial counts were quite low. Because of worsening shortness of breath he was transferred from the general medical floor to the ICU a couple nights ago. He's been seen by Dr. Pugh over the weekend. Chest x-ray showed some diffuse infiltrates which could be lung injury and/or pneumonia and/or fluid. Currently is on BiPAP at 12 and 4 and 45%. According to the nurse, the patient apparently took his BiPAP off last night. He became very score earliest saturations drop he became very confused and disoriented. He also became bradycardic and they had given some atropine last night. Currently he is on BiPAP at 12.45%. He is getting IVs is getting no additional IV fluid I should say. The patient apparently has had a bone marrow biopsy with Dr. Nuñez for possible new diagnosis of acute leukemia or myelodysplastic syndrome. Objective - Vital Signs Vital signs: Vital Signs Temp 97.9 F 06/20/16 04:00 Pulse 73 06/20/16 08:11 Resp 15 06/20/16 07:00 BP 145/63 06/20/16 07:00 Pulse Ox 98 06/20/16 07:00 Intake & Output 06/19/16 06/20/16 06/20/16 18:59 06:59 18:59 Intake Total 1139 360 30 Output Total 1120 480 31 Balance 19 -120 -1 Weight 108 kg Intake: IV 430 360 30 Sodium Chloride 0.9% 1, 330 360 30 000 ml @ 30 mls/hr IV . Q24H [facility] Rx#:[id number] Intake, IV Titration 100 Amount Levofloxacin 500Mg-D5w 100 Pmx 500 mg In Dextrose/ Water 1 100ml.bag @ 100 mls/hr IVPB Q24H [facility] Rx#: [id number] Blood Product 609 Platelet Irr Pheresis 299 Acda1 Unit [id number] Rc Pheresis 2 As3 Unit 310 [id number] Output: Urine 1120 480 31 Post Void Residual 0 Other: Voiding Method Indwelling Catheter Indwelling Catheter - Exam No acute distress, oriented 3. Is wearing a BiPAP device. HEENT examination is grossly unremarkable. His mask is in place. Neck Supple. Full range of motion. No adenopathy. Cardiovascular examination reveals distant heart sounds. S1-S2 normal. No S3- S4. No distinct murmur. Lungs reveal a few scattered rhonchi. Some mild bibasilar crackles. Abdomen soft bowel sounds are heard. Extremities are intact. - Labs CBC & Chem 7: 06/20/16 04:06 06/20/16 04:06 Labs: Abnormal Lab Results - Last 24 Hours (Table) 06/15/16 06/19/16 06/19/16 Range/Units 13:25 06:27 12:36 WBC (3.8-10.6) k/uL RBC (4.30-5.90) m/uL Hgb (13.0-17.5) gm/dL Hct (39.0-53.0) % RDW (11.5-15.5) % Plt Count (150-450) k/uL Neutrophils # (Manual) (1.3-7.7) k/uL Nucleated RBCs (0-0) /100 WBC BUN (9-20) mg/dL Creatinine (0.66-1.25) mg/dL Glucose (74-99) mg/dL POC Glucose (mg/dL) 162 H (75-99) mg/dL Total Protein (6.3-8.2) g/dL Total Protein (PEP) 6.0 L (6.2-8.2) g/dL Albumin (3.5-5.0) g/dL Albumin (PEP) 3.73 L (3.80-4.90) g/dL Gamma Globulins 0.49 L (0.70-1.50) g/dL Crossmatch See Detail 06/19/16 06/19/16 06/19/16 Range/Units 12:46 18:02 20:35 WBC (3.8-10.6) k/uL RBC (4.30-5.90) m/uL Hgb (13.0-17.5) gm/dL Hct (39.0-53.0) % RDW (11.5-15.5) % Plt Count (150-450) k/uL Neutrophils # (Manual) (1.3-7.7) k/uL Nucleated RBCs (0-0) /100 WBC BUN (9-20) mg/dL Creatinine (0.66-1.25) mg/dL Glucose (74-99) mg/dL POC Glucose (mg/dL) 161 H 155 H 159 H (75-99) mg/dL Total Protein (6.3-8.2) g/dL Total Protein (PEP) (6.2-8.2) g/dL Albumin (3.5-5.0) g/dL Albumin (PEP) (3.80-4.90) g/dL Gamma Globulins (0.70-1.50) g/dL Crossmatch 06/20/16 06/20/16 06/20/16 Range/Units 04:06 04:06 07:51 WBC 3.5 L (3.8-10.6) k/uL RBC 2.09 L (4.30-5.90) m/uL Hgb 6.8 L* (13.0-17.5) gm/dL Hct 19.6 L* (39.0-53.0) % RDW 21.8 H (11.5-15.5) % Plt Count 7 L* D (150-450) k/uL Neutrophils # (Manual) 1.0 L (1.3-7.7) k/uL Nucleated RBCs 8 H (0-0) /100 WBC BUN 25 H (9-20) mg/dL Creatinine 1.30 H (0.66-1.25) mg/dL Glucose 198 H (74-99) mg/dL POC Glucose (mg/dL) 152 H (75-99) mg/dL Total Protein 5.8 L (6.3-8.2) g/dL Total Protein (PEP) (6.2-8.2) g/dL Albumin 3.2 L (3.5-5.0) g/dL Albumin (PEP) (3.80-4.90) g/dL Gamma Globulins (0.70-1.50) g/dL Crossmatch Microbiology - Last 24 Hours (Table) 06/18/16 04:13 Urine Culture - Final Urine,Catheterized Assessment and Plan (1) Myelodysplastic syndrome Status: Acute (2) Acute leukemia Status: Acute (3) Acute respiratory failure Status: Acute (4) Neutropenia Status: Acute (5) Pancytopenia Status: Acute (6) Thrombocytopenia Status: Acute (7) Weakness Status: Acute (8) Contusion Status: Acute (9) Epistaxis Status: Acute Plan: Plan dated 06/20/2016 The patient will continue be followed closely. We'll trial him off the BiPAP and just place him on some nasal prongs. The patient will hopefully have a more precise diagnosis of either despite myelodysplastic syndrome acute leukemia later today. The patient's overall prognosis is very guarded. As x- ray shows diffuse infiltrates which may relate to either lung injury pneumonia or fluid overload. There also may be a combination of factors. If he can tolerated some additional diuretic I'll do that. This recommendation suggestions are forthcoming. Prognosis is very guarded. Time with Patient: Less than 30
[2016-06-20] MEDS: INSULIN LISPRO (humaLOG) 300 UNIT/3 ML VIAL SQ SCH ×4 (08:57→20:18)
[2016-06-20] MEDS: DILTIAZEM CD 240 MG CAP.ER.24H PO SCH (08:57)
[2016-06-20] MEDS: FLUCONAZOLE 100 MG TAB PO SCH (08:57)
[2016-06-20] MEDS: PANTOPRAZOLE 40 MG/10 ML VIAL IVP SCH (08:58)
[2016-06-20] MEDS: MULTIVITAMINS, THERA 1 EACH TAB PO SCH (08:58)
[2016-06-20] MEDS: NEBIVOLOL 5 MG TAB PO SCH (08:58)
[2016-06-20] MEDS: VANCOMYCIN 1,750 MG in SODIUM CHLORIDE 0.9% 250 ML IVPB SCH (09:08)
[2016-06-20] MEDS: FUROSEMIDE 10 MG/ML 4 ML VIAL IV STA (09:09)
[2016-06-20 09:15] VITALS: BMI 37.3
[2016-06-20 12:47] LABS: Glucose,Whole Blood 153 mg/dL (75-99)
[2016-06-20] MEDS: LEVOFLOXACIN 500MG-D5W PMX 500 MG in DEXTROSE/WATER 1 100ML.BAG IVPB SCH (13:06)
[2016-06-20] MEDS: SODIUM CHLORIDE 0.9% 1,000 ML IV SCH (16:20)
[2016-06-20 17:00] LABS: Glucose,Whole Blood 200 mg/dL (75-99)
--- NOTE | 2016-06-20 18:52 | P.PN ---
Subjective Principal diagnosis: Acute Myelodysplastic syndrome with pancytopenia Patient is a 75-year-old male who was admitted with severe weakness, he was found to have severe pancytopenia, he received platelet transfusion during this admission, he was seen by hematology oncology, he underwent bone marrow biopsy, results are still pending. During this admission patient developed worsening shortness of breath requiring BiPAP he was transferred to ICU. Due to severe leukopenia and low-grade fever he is receiving coverage with IV antibiotics. Objective - Vital Signs Vital signs: Vital Signs Temp 97.5 F L 06/20/16 16:00 Pulse 77 06/20/16 18:00 Resp 18 06/20/16 18:00 BP 147/71 06/20/16 18:00 Pulse Ox 94 L 06/20/16 18:00 Intake & Output 06/19/16 06/20/16 06/20/16 18:59 06:59 18:59 Intake Total 0586 732 6872 Output Total 0424 109 4231 Balance 19 120 621 Weight 108 kg 108 kg Intake: IV 430 360 300 Sodium Chloride 0.9% 1, 330 360 300 000 ml @ 30 mls/hr IV . Q24H [facility] Rx#:[id number] Intake, IV Titration 100 350 Amount Levofloxacin 500Mg-D5w 100 100 Pmx 500 mg In Dextrose/ Water 1 100ml.bag @ 100 mls/hr IVPB Q24H [facility] Rx#: [id number] Vancomycin 1,750 mg In 250 Sodium Chloride 0.9% 250 ml @ 125 mls/hr IVPB Q24H [facility] Rx#:[id number] Oral 720 Blood Product 609 Platelet Irr Pheresis 299 Acda1 Unit [id number] Rc Pheresis 2 As3 Unit 310 [id number] Output: Urine 3875 646 6163 Post Void Residual 0 Other: Voiding Method Indwelling Catheter Indwelling Catheter Indwelling Catheter # Voids 2 - Exam HEENT head normocephalic and atraumatic Neck is supple no JVD no goiter no lymphadenopathy Chest exam reveals a few scattered crackles no wheezing Cardiac exam reveals regular heart sounds no murmurs Abdomen is soft nontender no organomegaly Extremity exam reveals no edema no cyanosis or clubbing - Labs CBC & Chem 7: 06/20/16 04:06 06/20/16 04:06 Labs: Abnormal Lab Results - Last 24 Hours (Table) 06/19/16 06/19/16 06/20/16 Range/Units 06:27 20:35 04:06 WBC 3.5 L (3.8-10.6) k/uL RBC 2.09 L (4.30-5.90) m/uL Hgb 6.8 L* (13.0-17.5) gm/dL Hct 19.6 L* (39.0-53.0) % RDW 21.8 H (11.5-15.5) % Plt Count 7 L* D (150-450) k/uL Neutrophils # (Manual) 1.0 L (1.3-7.7) k/uL Nucleated RBCs 8 H (0-0) /100 WBC BUN (9-20) mg/dL Creatinine (0.66-1.25) mg/dL Glucose (74-99) mg/dL POC Glucose (mg/dL) 159 H (75-99) mg/dL Total Protein (6.3-8.2) g/dL Albumin (3.5-5.0) g/dL Crossmatch See Detail 06/20/16 06/20/16 06/20/16 Range/Units 04:06 07:51 12:45 WBC (3.8-10.6) k/uL RBC (4.30-5.90) m/uL Hgb (13.0-17.5) gm/dL Hct (39.0-53.0) % RDW (11.5-15.5) % Plt Count (150-450) k/uL Neutrophils # (Manual) (1.3-7.7) k/uL Nucleated RBCs (0-0) /100 WBC BUN 25 H (9-20) mg/dL Creatinine 1.30 H (0.66-1.25) mg/dL Glucose 198 H (74-99) mg/dL POC Glucose (mg/dL) 152 H 153 H (75-99) mg/dL Total Protein 5.8 L (6.3-8.2) g/dL Albumin 3.2 L (3.5-5.0) g/dL Crossmatch 06/20/16 Range/Units 16:58 WBC (3.8-10.6) k/uL RBC (4.30-5.90) m/uL Hgb (13.0-17.5) gm/dL Hct (39.0-53.0) % RDW (11.5-15.5) % Plt Count (150-450) k/uL Neutrophils # (Manual) (1.3-7.7) k/uL Nucleated RBCs (0-0) /100 WBC BUN (9-20) mg/dL Creatinine (0.66-1.25) mg/dL Glucose (74-99) mg/dL POC Glucose (mg/dL) 200 H (75-99) mg/dL Total Protein (6.3-8.2) g/dL Albumin (3.5-5.0) g/dL Crossmatch Microbiology - Last 24 Hours (Table) 06/18/16 04:13 Urine Culture - Final Urine,Catheterized Assessment and Plan Plan: #1 severe pancytopenia, possible myelodysplastic syndrome, awaiting bone marrow biopsy results for definitive diagnosis #2 low-grade fever with neutropenia, patient is maintained on IV antibiotic coverage #3 acute hypoxic respiratory failure requiring BiPAP use improving gradually At this time continue supportive care continue monitoring in ICU patient received PICC line placement today Will follow closely, pulmonary critical care and oncology are also follow
[2016-06-20 20:08] LABS: Glucose,Whole Blood 250 mg/dL (75-99)
[2016-06-20] MEDS: MORPHINE SULFATE 2 MG/ML SYRINGE IVP PRN (20:18)
[2016-06-20 23:24] LABS: Glucose,Whole Blood 190 mg/dL (75-99)
[2016-06-21 04:56] LABS: ALT 40 U/L (21-72); AST 50 U/L (17-59); Alkaline Phosphatase 69 U/L (38-126); Anion Gap 9 mmol/L; Blood Urea Nitrogen 28 mg/dL (9-20); Calcium 8.6 mg/dL (8.4-10.2); Carbon Dioxide 30 mmol/L (22-30); Chloride 106 mmol/L (98-107); Glucose 162 mg/dL (74-99); Magnesium 1.9 mg/dL (1.6-2.3); Non-African American GFR(MDRD) 57 (>60 ml/min/1.73 sqM); Potassium 3.9 mmol/L (3.5-5.1); Sodium 145 mmol/L (137-145); Total Protein 5.9 g/dL (6.3-8.2)
[2016-06-21] MEDS: MAGNESIUM SULFATE-D5W PMX 1 GM in DEXTROSE/WATER 1 100ML.BAG IVPB SCH ×2 (05:33→06:56)
[2016-06-21] MEDS ORDERED: POTASSIUM CHLORIDE ER 20 MEQ TAB.ER PO SCH (06:00)
[2016-06-21 06:20] LABS: Anisocytosis Moderate; CH 33.1; CHCM 34.8; HCT 20.1 % (39.0-53.0); HDW 3.87; Immature Gran Flag Marked; MCH 32.8 pg (25.0-35.0); MCHC 34.3 g/dL (31.0-37.0); MCV 95.9 fL (80.0-100.0); Macrocytosis Slight; Mean Platelet Volume 8.2; Poikilocytosis Slight; RDW 21.6 % (11.5-15.5); WBC (Perox) 5.24
[2016-06-21 06:26] LABS: HGB 6.9 gm/dL (13.0-17.5)
[2016-06-21] MEDS: IPRATROPIUM-ALBUTEROL 3 ML NEB INHALATION SCH ×4 (07:42→19:13)
[2016-06-21 07:46] LABS: Add Differential Manual Differential
[2016-06-21 07:58] LABS: Band Neutrophils % 0.5 %; Nucleated Red Blood Cells 3 /100 WBC (0-0); Promyelocytes % 7.5 %; Total Cells Counted 200
[2016-06-21 07:59] LABS: Manual Review Performed
[2016-06-21] MEDS ORDERED: VANCOMYCIN TROUGH DUE 1 EACH MISC MISCELLANE ONE (08:00)
[2016-06-21 08:03] LABS: Polychromasia Present
[2016-06-21 08:10] LABS: Glucose,Whole Blood 191 mg/dL (75-99)
[2016-06-21] MEDS: INSULIN LISPRO (humaLOG) 300 UNIT/3 ML VIAL SQ SCH ×4 (08:32→21:12)
[2016-06-21] MEDS: FLUCONAZOLE 100 MG TAB PO SCH (08:34)
[2016-06-21] MEDS: VANCOMYCIN 1,750 MG in SODIUM CHLORIDE 0.9% 250 ML IVPB SCH ×2 (08:34→23:03)
[2016-06-21] MEDS: MULTIVITAMINS, THERA 1 EACH TAB PO SCH (08:34)
[2016-06-21] MEDS: DILTIAZEM CD 240 MG CAP.ER.24H PO SCH (08:34)
[2016-06-21] MEDS: NEBIVOLOL 5 MG TAB PO SCH (08:34)
[2016-06-21] MEDS: PANTOPRAZOLE 40 MG/10 ML VIAL IVP SCH (08:34)
--- NOTE | 2016-06-21 09:06 | XR ---
EXAMINATION TYPE: XR chest 1V DATE OF EXAM: 06/21/2016 6:53 AM COMPARISON: [facility] chest x-ray HISTORY: Shortness of breath Single frontal view of the chest correlated to prior dated 20 June 2016 Left-sided PICC line is in place and is stable, the tip is overlying the region of the confluence of the innominate veins. The heart remains enlarged. There is prominence of the central vascularity, mix ed airspace and interstitial changes are present within the lungs. There is no pneumothorax. Suspect there is pleural effusion present. Calcified mediastinal right paratracheal node is stable. IMPRESSION: Similar findings to prior exam. Correlate for congestive heart failure, pneumonia not exc luded, there may be associated edema, effusion.
[2016-06-21] MEDS: MORPHINE SULFATE 2 MG/ML SYRINGE IVP PRN ×3 (10:09→19:46)
--- NOTE | 2016-06-21 10:16 | P.PN ---
Subjective Progress note dated 06/20/2016 This is a 75-year-old woman admitted on June 14 with profound weakness and fatigue. He was found to have pancytopenia. His initial counts were quite low. Because of worsening shortness of breath he was transferred from the general medical floor to the ICU a couple nights ago. He's been seen by Dr. Pugh over the weekend. Chest x-ray showed some diffuse infiltrates which could be lung injury and/or pneumonia and/or fluid. Currently is on BiPAP at 12 and 4 and 45%. According to the nurse, the patient apparently took his BiPAP off last night. He became very score earliest saturations drop he became very confused and disoriented. He also became bradycardic and they had given some atropine last night. Currently he is on BiPAP at 12.45%. He is getting IVs is getting no additional IV fluid I should say. The patient apparently has had a bone marrow biopsy with Dr. Nuñez for possible new diagnosis of acute leukemia or myelodysplastic syndrome. Progress note dated 06/21/2016 next This 75-year-old gentleman was admitted on June 14 with profound weakness and fatigue. He was found to be pancytopenic. A bone marrow biopsy was done. The results are currently pending. Chest x-ray shows diffuse bilateral infiltrates which could be consistent with acute lung injury/ARDS pneumonia and/ or fluids. The patient's on BiPAP at various times at 12 and 4 and 45%. Currently is on O2 at 6 L nasal cannula. Has appointment 9 IV at [facility]. The BiPAP settings are mentioned above. May be a bit more short of breath today. Chest x-ray looks a bit worse. We did talk about CODE STATUS. The patient apparently has been does not did not want to necessarily be on life support. We'll talk to his daughter and . Objective - Vital Signs Vital signs: Vital Signs Temp 98.3 F 06/21/16 04:00 Pulse 79 06/21/16 10:00 Resp 24 06/21/16 10:00 BP 152/69 06/21/16 10:00 Pulse Ox 93 L 06/21/16 10:00 Intake & Output 06/20/16 06/21/16 06/21/16 18:59 06:59 18:59 Intake Total 1370 1310 670 Output Total 1990 1260 415 Balance -621 50 255 Weight 108 kg 111.3 kg 111.3 kg Intake: IV 300 390 60 Sodium Chloride 0.9% 1, 300 390 60 000 ml @ 30 mls/hr IV . Q24H [facility] Rx#:[id number] Intake, IV Titration 350 200 250 Amount Levofloxacin 500Mg-D5w 100 Pmx 500 mg In Dextrose/ Water 1 100ml.bag @ 100 mls/hr IVPB Q24H [facility] Rx#: [id number] Magnesium Sulfate-D5w Pmx 200 1 gm In Dextrose/Water 1 100ml.bag @ 100 mls/hr IVPB Q1H [facility] Rx#: [id number] Vancomycin 1,750 mg In 250 250 Sodium Chloride 0.9% 250 ml @ 125 mls/hr IVPB Q24H [facility] Rx#:[id number] Oral 720 720 360 Output: Urine 1990 1260 415 Other: Voiding Method Indwelling Catheter Indwelling Catheter # Voids 2 - Exam No acute distress, oriented 3. Is wearing a BiPAP device. HEENT examination is grossly unremarkable. His mask is in place. Neck Supple. Full range of motion. No adenopathy. Cardiovascular examination reveals distant heart sounds. S1-S2 normal. No S3- S4. No distinct murmur. Lungs reveal a few scattered rhonchi. Some mild bibasilar crackles. Abdomen soft bowel sounds are heard. Extremities are intact. - Labs CBC & Chem 7: 06/21/16 04:30 06/21/16 04:30 Labs: Abnormal Lab Results - Last 24 Hours (Table) 06/20/16 06/20/16 06/20/16 Range/Units 12:45 16:58 20:06 RBC (4.30-5.90) m/uL Hgb (13.0-17.5) gm/dL Hct (39.0-53.0) % RDW (11.5-15.5) % Plt Count (150-450) k/uL Neutrophils # (Manual) (1.3-7.7) k/uL Lymphocytes # (Manual) (1.0-4.8) k/uL Nucleated RBCs (0-0) /100 WBC BUN (9-20) mg/dL Glucose (74-99) mg/dL POC Glucose (mg/dL) 153 H 200 H 250 H (75-99) mg/dL Total Protein (6.3-8.2) g/dL Albumin (3.5-5.0) g/dL 06/20/16 06/21/16 06/21/16 Range/Units 23:21 04:30 04:30 RBC 2.10 L (4.30-5.90) m/uL Hgb 6.9 L* (13.0-17.5) gm/dL Hct 20.1 L (39.0-53.0) % RDW 21.6 H (11.5-15.5) % Plt Count 6 L* (150-450) k/uL Neutrophils # (Manual) 0.5 L (1.3-7.7) k/uL Lymphocytes # (Manual) 0.9 L (1.0-4.8) k/uL Nucleated RBCs 3 H (0-0) /100 WBC BUN 28 H (9-20) mg/dL Glucose 162 H (74-99) mg/dL POC Glucose (mg/dL) 190 H (75-99) mg/dL Total Protein 5.9 L (6.3-8.2) g/dL Albumin 3.2 L (3.5-5.0) g/dL 06/21/16 Range/Units 08:08 RBC (4.30-5.90) m/uL Hgb (13.0-17.5) gm/dL Hct (39.0-53.0) % RDW (11.5-15.5) % Plt Count (150-450) k/uL Neutrophils # (Manual) (1.3-7.7) k/uL Lymphocytes # (Manual) (1.0-4.8) k/uL Nucleated RBCs (0-0) /100 WBC BUN (9-20) mg/dL Glucose (74-99) mg/dL POC Glucose (mg/dL) 191 H (75-99) mg/dL Total Protein (6.3-8.2) g/dL Albumin (3.5-5.0) g/dL Assessment and Plan (1) Myelodysplastic syndrome Status: Acute (2) Acute leukemia Status: Acute (3) Acute respiratory failure Status: Acute (4) Neutropenia Status: Acute (5) Pancytopenia Status: Acute (6) Thrombocytopenia Status: Acute (7) Weakness Status: Acute (8) Contusion Status: Acute (9) Epistaxis Status: Acute Plan: Plan dated 06/20/2016 The patient will continue be followed closely. We'll trial him off the BiPAP and just place him on some nasal prongs. The patient will hopefully have a more precise diagnosis of either despite myelodysplastic syndrome acute leukemia later today. The patient's overall prognosis is very guarded. As x- ray shows diffuse infiltrates which may relate to either lung injury pneumonia or fluid overload. There also may be a combination of factors. If he can tolerated some additional diuretic I'll do that. This recommendation suggestions are forthcoming. Prognosis is very guarded. Plan 06/21/2016 The patient is going to be kept here in the ICU. Monitor closely. We'll turn the IV fluids down. We'll probably give him a dose of Lasix. We'll await the bone marrow biopsy. Additional recommendations suggestions are forthcoming. Prognosis is very guarded. We did talk briefly about cardiopulmonary resuscitation and life support. He does seem to understand with mechanical ventilator is. Hasn't made any clear decisions. We'll discuss with his and Time with Patient: Less than 30
[2016-06-21] MEDS: FUROSEMIDE 10 MG/ML 4 ML VIAL IV STA (11:33)
[2016-06-21 12:25] LABS: Glucose,Whole Blood 204 mg/dL (75-99)
--- NOTE | 2016-06-21 15:57 | IR ---
PICC LINE PLACEMENT: HISTORY: Infection requiring long-term antibiotic therapy PROCEDURE: Ultrasound guidance of PICC line placement. BAIT MAN: Dr. Jeronimo. COMPLICATIONS: None ANESTHESIA: 1. 1% Lidocaine locally. FINDINGS/TECHNIQUE: The procedure was explained to the patient. The risks, complications, benefits and alternatives were discussed and any questions were answered. Informed consent was obtained. The patient was placed supine on the fluoroscopic table and prepped and draped in the usual sterile fash ion. Utilizing a 21 gauge needle and sonographic guidance, access in the basilic vein was achieved and there is placement of a 0.018 guidewire. The vein is patent. A 5-F. Sheath was placed over the guidewire. The guidewire and dilator were removed and a 5-F. Double lumen PICC line was placed thro ugh the sheath with the chest x-ray confirming the tip at the level of the SVC. The sheath was remov ed, the catheter was flushed and sutured into position. The patient was stable throughout the proced ure and remained stable upon discharge from the Department of Radiology. The vein puncture was patent under ultrasound. A carmona scale image was obtained to document patency of the vein punctured. All elements of the maximal barrier technique were utilized. IMPRESSION: 1. Successful PICC line placement under ultrasound performed bedside within the ICU.
[2016-06-21] MEDS: LEVOFLOXACIN 500 MG TAB PO SCH (16:26)
[2016-06-21] MEDS: SODIUM CHLORIDE 0.9% 1,000 ML IV SCH (16:26)
--- NOTE | 2016-06-21 18:26 | P.PN ---
Subjective Principal diagnosis: Acute Myelodysplastic syndrome versus acute leukemia with pancytopenia Patient is a 75-year-old male who was admitted with severe weakness, he was found to have severe pancytopenia, he received platelet transfusion during this admission, he was seen by hematology oncology, he underwent bone marrow biopsy, results are still pending. During this admission patient developed worsening shortness of breath requiring BiPAP he was transferred to ICU. Due to severe leukopenia and low-grade fever he is receiving coverage with IV antibiotics. Objective - Vital Signs Vital signs: Vital Signs Temp 98.3 F 06/21/16 04:00 Pulse 65 06/21/16 16:00 Resp 16 06/21/16 16:00 BP 115/52 06/21/16 16:00 Pulse Ox 88 L 06/21/16 16:00 Intake & Output 06/20/16 06/21/16 06/21/16 18:59 06:59 18:59 Intake Total 1370 1310 880 Output Total 1990 1260 1760 Balance -621 50 -880 Weight 108 kg 111.3 kg 111.3 kg Intake: IV 300 390 270 Sodium Chloride 0.9% 1, 300 390 270 000 ml @ 30 mls/hr IV . Q24H [facility] Rx#:[id number] Intake, IV Titration 350 200 250 Amount Levofloxacin 500Mg-D5w 100 Pmx 500 mg In Dextrose/ Water 1 100ml.bag @ 100 mls/hr IVPB Q24H [facility] Rx#: [id number] Magnesium Sulfate-D5w Pmx 200 1 gm In Dextrose/Water 1 100ml.bag @ 100 mls/hr IVPB Q1H [facility] Rx#: [id number] Vancomycin 1,750 mg In 250 250 Sodium Chloride 0.9% 250 ml @ 125 mls/hr IVPB Q24H [facility] Rx#:[id number] Oral 720 720 360 Output: Urine 1990 1260 1760 Other: Voiding Method Indwelling Catheter Indwelling Catheter Indwelling Catheter # Voids 2 2 - Exam HEENT head normocephalic and atraumatic Neck is supple no JVD no goiter no lymphadenopathy Chest exam reveals a few scattered crackles no wheezing Cardiac exam reveals regular heart sounds no murmurs Abdomen is soft nontender no organomegaly Extremity exam reveals no edema no cyanosis or clubbing - Labs CBC & Chem 7: 06/21/16 04:30 06/21/16 08:10 Labs: Abnormal Lab Results - Last 24 Hours (Table) 06/20/16 06/20/16 06/21/16 Range/Units 20:06 23:21 04:30 RBC 2.10 L (4.30-5.90) m/uL Hgb 6.9 L* (13.0-17.5) gm/dL Hct 20.1 L (39.0-53.0) % RDW 21.6 H (11.5-15.5) % Plt Count 6 L* (150-450) k/uL Neutrophils # (Manual) 0.5 L (1.3-7.7) k/uL Lymphocytes # (Manual) 0.9 L (1.0-4.8) k/uL Nucleated RBCs 3 H (0-0) /100 WBC BUN (9-20) mg/dL Glucose (74-99) mg/dL POC Glucose (mg/dL) 250 H 190 H (75-99) mg/dL Total Protein (6.3-8.2) g/dL Albumin (3.5-5.0) g/dL 06/21/16 06/21/16 06/21/16 Range/Units 04:30 08:08 12:23 RBC (4.30-5.90) m/uL Hgb (13.0-17.5) gm/dL Hct (39.0-53.0) % RDW (11.5-15.5) % Plt Count (150-450) k/uL Neutrophils # (Manual) (1.3-7.7) k/uL Lymphocytes # (Manual) (1.0-4.8) k/uL Nucleated RBCs (0-0) /100 WBC BUN 28 H (9-20) mg/dL Glucose 162 H (74-99) mg/dL POC Glucose (mg/dL) 191 H 204 H (75-99) mg/dL Total Protein 5.9 L (6.3-8.2) g/dL Albumin 3.2 L (3.5-5.0) g/dL Assessment and Plan Plan: #1 severe pancytopenia, possible myelodysplastic syndrome versus acute leukemia awaiting bone marrow biopsy results for definitive diagnosis, Dr. Quarles following #2 low-grade fever with neutropenia, patient is maintained on IV antibiotic coverage #3 acute hypoxic respiratory failure requiring BiPAP use improving gradually At this time continue supportive care continue monitoring in ICU Will follow closely, pulmonary critical care and oncology are also follow
[2016-06-21 18:42] LABS: Glucose,Whole Blood 194 mg/dL (75-99)
[2016-06-21] MEDS: ATROPINE SULFATE 0.1 MG/ML 10ML SYRINGE ONE (21:04)
[2016-06-21 21:13] LABS: Glucose,Whole Blood 186 mg/dL (75-99)
[2016-06-22] MEDS: MORPHINE SULFATE 2 MG/ML SYRINGE IVP PRN ×3 (00:22→15:31)
--- NOTE | 2016-06-22 00:53 | P.PN ---
Subjective The pt remains SOB on BiPAP. His respiratory status is overall unchanged. He has had intermittent confusion. No obvious bleeding noted. Objective - Vital Signs Vital signs: Vital Signs Temp 98.3 F 06/21/16 20:00 Pulse 71 06/21/16 21:00 Resp 25 H 06/21/16 21:00 BP 126/66 06/21/16 21:00 Pulse Ox 95 06/21/16 21:00 Intake & Output 06/21/16 06/21/16 06/22/16 06:59 18:59 06:59 Intake Total 1310 940 90 Output Total 1260 1820 110 Balance 50 -880 -20 Weight 111.3 kg 111.3 kg Intake: IV 390 330 90 Sodium Chloride 0.9% 1, 390 330 90 000 ml @ 30 mls/hr IV . Q24H [facility] Rx#:[id number] Intake, IV Titration 200 250 Amount Magnesium Sulfate-D5w Pmx 200 1 gm In Dextrose/Water 1 100ml.bag @ 100 mls/hr IVPB Q1H [facility] Rx#: [id number] Vancomycin 1,750 mg In 250 Sodium Chloride 0.9% 250 ml @ 125 mls/hr IVPB Q24H [facility] Rx#:[id number] Oral 720 360 Output: Urine 1260 1820 110 Other: Voiding Method Indwelling Catheter Indwelling Catheter Indwelling Catheter # Voids 2 - Constitutional General appearance: Present: mild distress - EENT Eyes: Present: PERRLA ENT: Present: hearing grossly normal, normal oropharynx - Respiratory Respiratory: bilateral: diminished, rales - Cardiovascular Rhythm: regular Heart sounds: normal: S1, S2 - Gastrointestinal General gastrointestinal: Present: decreased bowel sounds, soft - Integumentary Integumentary: Present: normal - Neurologic Neurologic: Present: CNII-XII intact - Musculoskeletal Musculoskeletal: Present: generalized weakness - Psychiatric Psychiatric: Present: A&O x's 3 - Labs CBC & Chem 7: 06/21/16 04:30 06/21/16 08:10 Labs: Abnormal Lab Results - Last 24 Hours (Table) 06/19/16 06/21/16 06/21/16 Range/Units 06:27 04:30 04:30 RBC 2.10 L (4.30-5.90) m/uL Hgb 6.9 L* (13.0-17.5) gm/dL Hct 20.1 L (39.0-53.0) % RDW 21.6 H (11.5-15.5) % Plt Count 6 L* (150-450) k/uL Neutrophils # (Manual) 0.5 L (1.3-7.7) k/uL Lymphocytes # (Manual) 0.9 L (1.0-4.8) k/uL Nucleated RBCs 3 H (0-0) /100 WBC BUN 28 H (9-20) mg/dL Glucose 162 H (74-99) mg/dL POC Glucose (mg/dL) (75-99) mg/dL Total Protein 5.9 L (6.3-8.2) g/dL Albumin 3.2 L (3.5-5.0) g/dL Crossmatch See Detail 06/21/16 06/21/16 06/21/16 Range/Units 08:08 12:23 18:41 RBC (4.30-5.90) m/uL Hgb (13.0-17.5) gm/dL Hct (39.0-53.0) % RDW (11.5-15.5) % Plt Count (150-450) k/uL Neutrophils # (Manual) (1.3-7.7) k/uL Lymphocytes # (Manual) (1.0-4.8) k/uL Nucleated RBCs (0-0) /100 WBC BUN (9-20) mg/dL Glucose (74-99) mg/dL POC Glucose (mg/dL) 191 H 204 H 194 H (75-99) mg/dL Total Protein (6.3-8.2) g/dL Albumin (3.5-5.0) g/dL Crossmatch 06/21/16 Range/Units 21:12 RBC (4.30-5.90) m/uL Hgb (13.0-17.5) gm/dL Hct (39.0-53.0) % RDW (11.5-15.5) % Plt Count (150-450) k/uL Neutrophils # (Manual) (1.3-7.7) k/uL Lymphocytes # (Manual) (1.0-4.8) k/uL Nucleated RBCs (0-0) /100 WBC BUN (9-20) mg/dL Glucose (74-99) mg/dL POC Glucose (mg/dL) 186 H (75-99) mg/dL Total Protein (6.3-8.2) g/dL Albumin (3.5-5.0) g/dL Crossmatch Assessment and Plan (1) Pancytopenia Narrative/Plan: This is due to AML , per the bone marrow. Continue transfusion support for plt < 10 and Hgb < 7. He is requring transfusions daily Status: Acute (2) Acute respiratory failure Narrative/Plan: Respiratory status is essentially unchanged requiring persistent BiPAP support, despite diuresis and antibiotics. The pt may have a component of ARDS related to his AML, which would explain suboptimal rsponse to ongoing treatment Status: Acute (3) Acute leukemia Narrative/Plan: The case was d/w the pathologist at [facility]. 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 The results and implications were discussed in detail with the pt , his family , and the admitting service. APL is the most treatable of the AMLs with the best prognosis. Thus active treatment is usually recommended. However the pt's current status does place him at higher risk of treatment related complkcatiosn. These were also discussed in detail, including sepsis, resiratory failure requiring intubation, need for transfusions , tumor lysis and other organ failure. The treatment would include ATRA, which is very effective in this disease. The possibility of ATRA syndrome and its management was also discussed. The pt and his family will discuss further and let me know if they desire treatment. If so, I will start PO ATRA , along with medication for tumor lysis prevention, pending FISH for PML:KRISTOPHER translocation for confirmation of diagnosis. Once APL is confirmed, chemo can be started. In his age group, for APL, Arsenic trioxide can be used, which is better tolerated than conventional high dose induction regimens. - Check DIC labs - Check ECHO Status: Acute
[2016-06-22 04:24] LABS: Anisocytosis Moderate; CHCM 35.1; HDW 4.16; Immature Gran Flag Marked; MCH 33.6 pg (25.0-35.0); MCHC 35.3 g/dL (31.0-37.0); MCV 95.3 fL (80.0-100.0); Macrocytosis Slight; Mean Platelet Volume 8.3; Poikilocytosis Moderate; RDW 21.5 % (11.5-15.5); WBC (Perox) 6.98
[2016-06-22 04:37] LABS: HGB 6.7 gm/dL (13.0-17.5)
[2016-06-22 04:39] LABS: ALT 39 U/L (21-72); AST 45 U/L (17-59); Alkaline Phosphatase 66 U/L (38-126); Anion Gap 10 mmol/L; Blood Urea Nitrogen 35 mg/dL (9-20); Calcium 8.6 mg/dL (8.4-10.2); Carbon Dioxide 30 mmol/L (22-30); Chloride 105 mmol/L (98-107); Glucose 165 mg/dL (74-99); Magnesium 2.4 mg/dL (1.6-2.3); Non-African American GFR(MDRD) 54 (>60 ml/min/1.73 sqM); Sodium 145 mmol/L (137-145); Total Bilirubin 0.9 mg/dL (0.2-1.3); Total Protein 5.7 g/dL (6.3-8.2)
[2016-06-22 05:04] LABS: Add Differential Manual Differential
[2016-06-22 05:11] LABS: INR 1.5 (<1.1); Partial Thromboplastin Time 25.7 sec (22.0-30.0); Prothrombin Time 14.9 sec (9.0-12.0)
[2016-06-22 05:14] LABS: Nucleated Red Blood Cells 3 /100 WBC (0-0); Total Cells Counted 200
[2016-06-22 05:15] LABS: WBC 6.5 k/uL (3.8-10.6)
[2016-06-22 05:16] LABS: Manual Review Performed
[2016-06-22] MEDS: IPRATROPIUM-ALBUTEROL 3 ML NEB INHALATION SCH ×3 (07:27→16:21)
--- NOTE | 2016-06-22 08:00 | XR ---
EXAMINATION TYPE: XR chest 1V DATE OF EXAM: 06/22/2016 6:21 AM COMPARISON: NONE INDICATION: Short of breath TECHNIQUE: Single frontal view of the chest is obtained. FINDINGS: The heart size is normal. Pulmonary vascular markings are increased. There is increased lung markings bilaterally. This may be greater in the right upper lobe. Findings a re improving from the comparison. Some calcified lymphadenopathy may be adjacent to the right paratracheal region. IMPRESSION: 1. Improving bilateral lung infiltrates.
[2016-06-22 08:10] LABS: Glucose,Whole Blood 183 mg/dL (75-99)
[2016-06-22] MEDS: PANTOPRAZOLE 40 MG/10 ML VIAL IVP SCH (08:27)
[2016-06-22] MEDS: FLUCONAZOLE 100 MG TAB PO SCH (08:27)
[2016-06-22] MEDS: MULTIVITAMINS, THERA 1 EACH TAB PO SCH (08:27)
[2016-06-22] MEDS: INSULIN LISPRO (humaLOG) 300 UNIT/3 ML VIAL SQ SCH ×3 (08:28→17:41)
[2016-06-22] MEDS: NEBIVOLOL 5 MG TAB PO SCH (08:28)
--- NOTE | 2016-06-22 10:52 | ECHOF ---
Referral Reason:For LV function - for chemo MEASUREMENTS -------- HEIGHT: 170.2 cm WEIGHT: 108.0 kg BP: 138/70 IVSd: 1.8 cm (0.6 - 1.1) LVIDd: 4.5 cm (3.9 - 5.3) LVPWd: 1.6 cm (0.6 - 1.1) IVSs: 2.4 cm LVIDs: 1.4 cm LVPWs: 2.0 cm LAESV Index (A-L): 43.49 ml/m Ao Diam: 3.5 cm (2.0 - 3.7) AV Cusp: 2.0 cm (1.5 - 2.6) LA Diam: 3.5 cm (2.7 - 3.8) MV EXCURSION: 19.783 mm (> 18.000) MV EF SLOPE: 117 mm/s (70 - 150) EPSS: 0.4 cm MV E Reza: 1.08 m/s MV DecT: 194 ms MV A Reza: 0.94 m/s MV E/A Ratio: 1.15 AV maxP.49 mmHg AV meanP.14 mmHg AR PHT: 256 ms RAP: 5.00 mmHg RVSP: 37.66 mmHg FINDINGS -------- Sinus rhythm. This was a technically adequate study. There is severe concentric left ventricular hypertrophy. Overall left ventricular systolic function is normal with, an EF between 55 - 60 %. RV Promident LA is severely dilated >40 ml/m2 RA appears enlarged. Aortic valve is trileaflet and is moderately thickened. There is mild aortic regurgitation. There is mild aortic stenosis present. Peak/mean gradient across the Aortic Valve is 23.49mmHg / 10.14mmHg. The mitral valve leaflets are mildly thickened. Heccepne-ty-saalnf mitral regurgitation is present. Mild tricuspid regurgitation present. There is mild pulmonary hypertension. The right ventricular systolic pressure, as measured by Doppler, is 37.66mmHg. Trace/mild (physiologic) pulmonic regurgitation. The aortic root size is normal. The pericardium is normal. CONCLUSIONS -------- 1. Sinus rhythm. 2. There is mild aortic stenosis present. 3. Peak/mean gradient across the Aortic Valve is 23.49mmHg / 10.14mmHg. 4. The mitral valve leaflets are mildly thickened. 5. Mqngbcko-lp-izxvlz mitral regurgitation is present. 6. Mild tricuspid regurgitation present. 7. There is mild pulmonary hypertension. 8. The right ventricular systolic pressure, as measured by Doppler, is 37.66mmHg. 9. Trace/mild (physiologic) pulmonic regurgitation. 10. The aortic root size is normal. 11. The pericardium is normal. 12. This was a technically adequate study. 13. There is severe concentric left ventricular hypertrophy. 14. Overall left ventricular systolic function is normal with, an EF between 55 - 60 %. 15. RV Promident 16. LA is severely dilated >40 ml/m2 17. RA appears enlarged. 18. Aortic valve is trileaflet and is moderately thickened. 19. There is mild aortic regurgitation. NEW CAR INSPECTOR: Landy Hewitt RDCS
--- NOTE | 2016-06-22 10:58 | P.PN ---
Subjective This is a very pleasant 75-year-old gentleman who was admitted on 06/14/2016 with profound weakness and fatigue. He was found to be bicytopenic with a white count of 1.4, hemoglobin 9.4 and platelets of 7000. A previous emergency room visit in March 2016 revealed platelets that 143,000 and a white count of 2.6. He was initially admitted to the regular medical floor however he developed worsening shortness of breath and was transferred here to the intensive care unit. His chest x-ray did show evidence of interstitial infiltrate/edema. He was treated with IV Lasix and BiPAP. He is seen again today in follow-up. Dr. Quarles in the pathologist believe his bone marrow biopsy is positive for acute myelogenic leukemia morphology is highly suspicious of M3 which is acute promyelocytic leukemia. He feels the patient would benefit from treatment. However the patient's pulmonary status is still quite poor. He was made a DO NOT RESUSCITATE/DO NOT INTUBATE CODE STATUS yesterday. He remains on BiPAP to maintain O2 saturations in the 90s. Today's chest x-ray does show some increased lung markings bilaterally right greater than left. There is some overall improvement in the chest x-ray however the patient's mental status remains quite altered. He is restless and pulling at his mask and pulling at his gown. This could be a terminal restlessness. His current hemoglobin is 6.7 , RBC 2.00. Platelet count 9000 and white count 6.5. Objective - Vital Signs Vital signs: Vital Signs Temp 97.4 F L 06/22/16 08:00 Pulse 72 06/22/16 10:00 Resp 15 06/22/16 10:00 BP 133/62 06/22/16 10:00 Pulse Ox 100 06/22/16 10:00 Intake & Output 06/21/16 06/22/16 06/22/16 18:59 06:59 18:59 Intake Total 940 640 90 Output Total 1820 920 133 Balance -880 -280 -43 Weight 111.3 kg 108.4 kg Intake: IV 330 390 90 Sodium Chloride 0.9% 1, 330 390 90 000 ml @ 30 mls/hr IV . Q24H [facility] Rx#:[id number] Intake, IV Titration 250 250 Amount Vancomycin 1,750 mg In 250 Sodium Chloride 0.9% 250 ml @ 125 mls/hr IVPB Q16H [facility] Rx#:[id number] Vancomycin 1,750 mg In 250 Sodium Chloride 0.9% 250 ml @ 125 mls/hr IVPB Q24H [facility] Rx#:[id number] Oral 360 Output: Urine 1820 920 133 Other: Voiding Method Indwelling Catheter Indwelling Catheter Indwelling Catheter # Voids 2 - Exam GENERAL EXAM: Confused, Obtunded. Appears short of breath. Maintained on BiPAP. Weak. HEAD: Normocephalic. EYES: Sluggish reaction of pupils, equal size. NOSE: Clear with pink turbinates. THROAT: There is crowding the posterior pharynx. No erythema or exudates. NECK: Short. No masses, no JVD. CHEST: No chest wall deformity. LUNGS: Equal air entry with crackles in the posterior bases more so on the left lung. CVS: S1 and S2 normal with no audible murmurs, regular rhythm. ABDOMEN: Soft, normal bowel sounds, no guarding or rigidity. SPINE: Kyphoscoliosis SKIN: No rashes Extremities: There is trace peripheral edema. No clubbing, no cyanosis. Peripheral pulses are intact. - Labs CBC & Chem 7: 06/22/16 04:15 06/22/16 04:15 Labs: Abnormal Lab Results - Last 24 Hours (Table) 06/19/16 06/21/16 06/21/16 Range/Units 06:27 12:23 18:41 RBC (4.30-5.90) m/uL Hgb (13.0-17.5) gm/dL Hct (39.0-53.0) % RDW (11.5-15.5) % Plt Count (150-450) k/uL Neutrophils # (Manual) (1.3-7.7) k/uL Nucleated RBCs (0-0) /100 WBC PT (9.0-12.0) sec Fibrinogen (200-500) mg/dL BUN (9-20) mg/dL Creatinine (0.66-1.25) mg/dL Glucose (74-99) mg/dL POC Glucose (mg/dL) 204 H 194 H (75-99) mg/dL Magnesium (1.6-2.3) mg/dL Total Protein (6.3-8.2) g/dL Albumin (3.5-5.0) g/dL Crossmatch See Detail 06/21/16 06/22/16 06/22/16 Range/Units 21:12 00:43 04:15 RBC 2.00 L (4.30-5.90) m/uL Hgb 6.7 L* (13.0-17.5) gm/dL Hct 19.0 L* (39.0-53.0) % RDW 21.5 H (11.5-15.5) % Plt Count 9 L* (150-450) k/uL Neutrophils # (Manual) 1.2 L (1.3-7.7) k/uL Nucleated RBCs 3 H (0-0) /100 WBC PT 14.9 H (9.0-12.0) sec Fibrinogen 182 L (200-500) mg/dL BUN (9-20) mg/dL Creatinine (0.66-1.25) mg/dL Glucose (74-99) mg/dL POC Glucose (mg/dL) 186 H (75-99) mg/dL Magnesium (1.6-2.3) mg/dL Total Protein (6.3-8.2) g/dL Albumin (3.5-5.0) g/dL Crossmatch 06/22/16 06/22/16 Range/Units 04:15 08:08 RBC (4.30-5.90) m/uL Hgb (13.0-17.5) gm/dL Hct (39.0-53.0) % RDW (11.5-15.5) % Plt Count (150-450) k/uL Neutrophils # (Manual) (1.3-7.7) k/uL Nucleated RBCs (0-0) /100 WBC PT (9.0-12.0) sec Fibrinogen (200-500) mg/dL BUN 35 H (9-20) mg/dL Creatinine 1.30 H (0.66-1.25) mg/dL Glucose 165 H (74-99) mg/dL POC Glucose (mg/dL) 183 H (75-99) mg/dL Magnesium 2.4 H (1.6-2.3) mg/dL Total Protein 5.7 L (6.3-8.2) g/dL Albumin 3.1 L (3.5-5.0) g/dL Crossmatch Assessment and Plan Plan: Impression: #1 Acute hypoxic respiratory failure, multifactorial, secondary to fluid volume overload, profound anemia and pancytopenia, obstructive sleep apnea syndrome, obesity/hypoventilation syndrome. 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 He has received 2 units of red blood cells, 3 units of platelets. #3 Sepsis secondary to immunocompromise. Currently covered with vancomycin and Levaquin. #4 History of bladder cancer. #5 Diabetes mellitus. #6 Hypertension. #7 Rheumatoid arthritis. #8 History of vocal cord paralysis requiring surgical intervention. Plan: The patient was seen and evaluated by Dr. Root. His chest x-ray and labs were reviewed. We'll place the patient back on the BiPAP at 12 over 4 and 45% FiO2. Continue bronchodilators 4 times a day and when necessary. A PICC line is in place. Oncology is following as well. They have ordered 1 pack of platelets and another unit of blood today. The patient's significant other is at the bedside and states the patient would never have wanted to be on life support. He is a DO NOT RESUSCITATE/DO NOT INTUBATE CODE STATUS. Dr. Root will be speaking with the patient's daughter regarding his present status and whether or not he'll tolerate any treatments at this point. In the interim, we'll continue with full supportive care. We'll continue to follow and make further recommendations based on his clinical status.
[2016-06-22 11:30] LABS: Glucose,Whole Blood 144 mg/dL (75-99)
[2016-06-22 12:34] VITALS: TEMP 98
[2016-06-22 13:01] VITALS: BP 123/70
--- NOTE | 2016-06-22 13:38 | P.PN ---
Subjective Principal diagnosis: Acute myelogenic leukemia with pancytopenia Patient is a 75-year-old male who was admitted with severe weakness, he was found to have severe pancytopenia, he received platelet transfusion during this admission, he was seen by hematology oncology, he underwent bone marrow biopsy, results are still pending. During this admission patient developed worsening shortness of breath requiring BiPAP he was transferred to ICU. Due to severe leukopenia and low-grade fever he is receiving coverage with IV antibiotics. Objective - Vital Signs Vital signs: Vital Signs Temp 98.0 F 06/22/16 12:00 Pulse 78 06/22/16 13:00 Resp 17 06/22/16 13:00 BP 123/70 06/22/16 13:00 Pulse Ox 97 06/22/16 13:00 Intake & Output 06/21/16 06/22/16 06/22/16 18:59 06:59 18:59 Intake Total 940 640 180 Output Total 1820 920 276 Balance -880 -280 -96 Weight 111.3 kg 108.4 kg Intake: IV 330 390 180 Sodium Chloride 0.9% 1, 330 390 180 000 ml @ 30 mls/hr IV . Q24H [facility] Rx#:[id number] Intake, IV Titration 250 250 Amount Vancomycin 1,750 mg In 250 Sodium Chloride 0.9% 250 ml @ 125 mls/hr IVPB Q16H [facility] Rx#:[id number] Vancomycin 1,750 mg In 250 Sodium Chloride 0.9% 250 ml @ 125 mls/hr IVPB Q24H [facility] Rx#:[id number] Oral 360 Output: Urine 1820 920 276 Other: Voiding Method Indwelling Catheter Indwelling Catheter Indwelling Catheter # Voids 2 - Exam HEENT head normocephalic and atraumatic Neck is supple no JVD no goiter no lymphadenopathy Chest exam reveals a few scattered crackles no wheezing Cardiac exam reveals regular heart sounds no murmurs Abdomen is soft nontender no organomegaly Extremity exam reveals no edema no cyanosis or clubbing - Labs CBC & Chem 7: 06/22/16 04:15 06/22/16 04:15 Labs: Abnormal Lab Results - Last 24 Hours (Table) 06/19/16 06/21/16 06/21/16 Range/Units 06:27 18:41 21:12 RBC (4.30-5.90) m/uL Hgb (13.0-17.5) gm/dL Hct (39.0-53.0) % RDW (11.5-15.5) % Plt Count (150-450) k/uL Neutrophils # (Manual) (1.3-7.7) k/uL Nucleated RBCs (0-0) /100 WBC PT (9.0-12.0) sec Fibrinogen (200-500) mg/dL BUN (9-20) mg/dL Creatinine (0.66-1.25) mg/dL Glucose (74-99) mg/dL POC Glucose (mg/dL) 194 H 186 H (75-99) mg/dL Magnesium (1.6-2.3) mg/dL Total Protein (6.3-8.2) g/dL Albumin (3.5-5.0) g/dL Crossmatch See Detail 06/22/16 06/22/16 06/22/16 Range/Units 00:43 04:15 04:15 RBC 2.00 L (4.30-5.90) m/uL Hgb 6.7 L* (13.0-17.5) gm/dL Hct 19.0 L* (39.0-53.0) % RDW 21.5 H (11.5-15.5) % Plt Count 9 L* (150-450) k/uL Neutrophils # (Manual) 1.2 L (1.3-7.7) k/uL Nucleated RBCs 3 H (0-0) /100 WBC PT 14.9 H (9.0-12.0) sec Fibrinogen 182 L (200-500) mg/dL BUN 35 H (9-20) mg/dL Creatinine 1.30 H (0.66-1.25) mg/dL Glucose 165 H (74-99) mg/dL POC Glucose (mg/dL) (75-99) mg/dL Magnesium 2.4 H (1.6-2.3) mg/dL Total Protein 5.7 L (6.3-8.2) g/dL Albumin 3.1 L (3.5-5.0) g/dL Crossmatch 06/22/16 06/22/16 06/22/16 Range/Units 08:08 11:04 11:28 RBC (4.30-5.90) m/uL Hgb (13.0-17.5) gm/dL Hct (39.0-53.0) % RDW (11.5-15.5) % Plt Count (150-450) k/uL Neutrophils # (Manual) (1.3-7.7) k/uL Nucleated RBCs (0-0) /100 WBC PT (9.0-12.0) sec Fibrinogen (200-500) mg/dL BUN (9-20) mg/dL Creatinine (0.66-1.25) mg/dL Glucose (74-99) mg/dL POC Glucose (mg/dL) 183 H 144 H (75-99) mg/dL Magnesium (1.6-2.3) mg/dL Total Protein (6.3-8.2) g/dL Albumin (3.5-5.0) g/dL Crossmatch See Detail Assessment and Plan Plan: #1 severe pancytopenia, acute leukemia, patient has poor lung function at this time and cannot tolerate chemotherapy at this point. His CODE STATUS is no code , Dr. Root is discussing CODE STATUS with family, if he remains no code he would not be able to tolerate chemotherapy and probably he can be placed on hospice. #2 low-grade fever with neutropenia, patient is maintained on IV antibiotic coverage #3 acute hypoxic respiratory failure requiring BiPAP use improving gradually At this time continue supportive care continue monitoring in ICU Will follow closely, pulmonary critical care and oncology are also follow
[2016-06-22] MEDS ORDERED: MORPHINE SULFATE (100 MG/2 ML) 100 MG in SODIUM CHLORIDE 0.9% 100 ML IV SCH (14:45)
[2016-06-22] MEDS: DILTIAZEM CD 240 MG CAP.ER.24H PO SCH (15:13)
[2016-06-22] MEDS: LEVOFLOXACIN 500 MG TAB PO SCH (15:22)
[2016-06-22] MEDS: SODIUM CHLORIDE 0.9% 1,000 ML IV SCH (17:40)
[2016-06-22] MEDS: VANCOMYCIN 1,750 MG in SODIUM CHLORIDE 0.9% 250 ML IVPB SCH (17:41)
[2016-06-22 18:02] VITALS: PULSE 73; RESP 14
--- NOTE | 2016-06-22 22:33 | P.PN ---
Subjective Principal diagnosis: AML The pt reamins lethargic on BiPAP. He has not been able to tolerate any attempt at weaning, No significant bleeding noted . Objective - Vital Signs Vital signs: Vital Signs Temp 98.0 F 06/22/16 12:00 Pulse 73 06/22/16 18:00 Resp 14 06/22/16 18:00 BP 123/70 06/22/16 14:00 Pulse Ox 89 L 06/22/16 18:00 Intake & Output 06/22/16 06/22/16 06/23/16 06:59 18:59 06:59 Intake Total 640 344.129 Output Total 920 518 Balance -280 -173.871 Weight 108.4 kg Intake: IV 390 330 Sodium Chloride 0.9% 1, 390 330 000 ml @ 30 mls/hr IV . Q24H [facility] Rx#:[id number] Intake, IV Titration 250 14.129 Amount Morphine Sulfate 100 mg 14.129 In Sodium Chloride 0.9% 100 ml @ 1 MG/HR 1.02 mls /hr IV .Q24H [facility] Rx#: [id number] Vancomycin 1,750 mg In 250 Sodium Chloride 0.9% 250 ml @ 125 mls/hr IVPB Q16H [facility] Rx#:[id number] Output: Urine 920 518 Other: Voiding Method Indwelling Catheter Indwelling Catheter - Constitutional General appearance: Present: mild distress, obese - EENT Eyes: Present: PERRLA ENT: Present: hearing grossly normal - Respiratory Respiratory: bilateral: diminished - Cardiovascular Rhythm: regular Heart sounds: normal: S1, S2 - Gastrointestinal General gastrointestinal: Present: decreased bowel sounds, soft - Integumentary Integumentary: Present: normal - Neurologic Neurologic: Present: CNII-XII intact - Musculoskeletal Musculoskeletal: Present: generalized weakness - Psychiatric Psychiatric Comment(s): lethargic. Wakens to verbal command - Labs CBC & Chem 7: 06/22/16 04:15 06/22/16 04:15 Labs: Abnormal Lab Results - Last 24 Hours (Table) 06/19/16 06/22/16 06/22/16 Range/Units 06:27 00:43 04:15 RBC 2.00 L (4.30-5.90) m/uL Hgb 6.7 L* (13.0-17.5) gm/dL Hct 19.0 L* (39.0-53.0) % RDW 21.5 H (11.5-15.5) % Plt Count 9 L* (150-450) k/uL Neutrophils # (Manual) 1.2 L (1.3-7.7) k/uL Nucleated RBCs 3 H (0-0) /100 WBC PT 14.9 H (9.0-12.0) sec Fibrinogen 182 L (200-500) mg/dL BUN (9-20) mg/dL Creatinine (0.66-1.25) mg/dL Glucose (74-99) mg/dL POC Glucose (mg/dL) (75-99) mg/dL Magnesium (1.6-2.3) mg/dL Total Protein (6.3-8.2) g/dL Albumin (3.5-5.0) g/dL Crossmatch See Detail 06/22/16 06/22/16 06/22/16 Range/Units 04:15 08:08 11:04 RBC (4.30-5.90) m/uL Hgb (13.0-17.5) gm/dL Hct (39.0-53.0) % RDW (11.5-15.5) % Plt Count (150-450) k/uL Neutrophils # (Manual) (1.3-7.7) k/uL Nucleated RBCs (0-0) /100 WBC PT (9.0-12.0) sec Fibrinogen (200-500) mg/dL BUN 35 H (9-20) mg/dL Creatinine 1.30 H (0.66-1.25) mg/dL Glucose 165 H (74-99) mg/dL POC Glucose (mg/dL) 183 H (75-99) mg/dL Magnesium 2.4 H (1.6-2.3) mg/dL Total Protein 5.7 L (6.3-8.2) g/dL Albumin 3.1 L (3.5-5.0) g/dL Crossmatch See Detail 06/22/16 Range/Units 11:28 RBC (4.30-5.90) m/uL Hgb (13.0-17.5) gm/dL Hct (39.0-53.0) % RDW (11.5-15.5) % Plt Count (150-450) k/uL Neutrophils # (Manual) (1.3-7.7) k/uL Nucleated RBCs (0-0) /100 WBC PT (9.0-12.0) sec Fibrinogen (200-500) mg/dL BUN (9-20) mg/dL Creatinine (0.66-1.25) mg/dL Glucose (74-99) mg/dL POC Glucose (mg/dL) 144 H (75-99) mg/dL Magnesium (1.6-2.3) mg/dL Total Protein (6.3-8.2) g/dL Albumin (3.5-5.0) g/dL Crossmatch Assessment and Plan (1) Pancytopenia Narrative/Plan: Based on CBC , 1 U PRBC and 1 U plt will be ordered Status: Acute (2) Acute respiratory failure Narrative/Plan: This persists , with no improvement in status despite ongoing BiPAP support, diuresis and aggressive antibiotics.Case d/w nursing. Pt has overall declined Status: Acute (3) Acute leukemia Narrative/Plan: Family and pt have not yet decided re active treatment. I discussed obtaining ATRA with pharmacy. They can obtain a supply short term, followed by the pt taking hsi own medication from an outpt prescription. - If they choose active treatment, I will start ATRA, and add Arsenic , once molecular confirmation is available. Given his current clinical status, the possbility of improvement seem slim - If they choose no active treatment, I would recommend comfort care, as his AML is universally fatal , within, usually, a limited perrod of time. Status: Acute
[2016-06-23] MEDS ORDERED: VANCOMYCIN TROUGH DUE 1 EACH MISC MISCELLANE ONE (07:30)
--- NOTE | 2016-06-23 13:56 | P.DS ---
Providers Date of admission: 06/14/16 14:52 Expected date of discharge: 06/22/16 Attending physician: Alex Bardales Consults: 06/15/16 09:34 Consult Physician Routine Consulting Provider: Jose J Quarles Consult Reason/Comments: thrombocytopenia, neutropenia Do you want consulting provider notified?: Yes 06/18/16 00:35 Consult Physician Stat Consulting Provider: Huamira Ramos Consult Reason/Comments: hypoxia Do you want consulting provider notified?: Yes Primary care physician: Shelley Partida Hospital Course: Discharge diagnosis/ summary 1. 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 Acute hypoxic respiratory failure secondary to anemia, pancytopenia, fluid overload, obstructive sleep apnea 3. 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 History of bladder cancer 6. Diabetes mellitus 7. Rheumatoid arthritis Hospital course This is a 75-year-old male who initially presented with generalized weakness with nausea, vomiting and diarrhea. He was found to be pancytopenic with anemia. Did require blood transfusion and platelet transfusion. Patient was seen by hematology. Antibiotics were added due to his neutropenia. Patient's symptoms continued decline. He went into respiratory distress. Required to be transferred to the ICU and placed on BiPAP. Patient did have a bone marrow biopsy completed results did show a acute promyelocytic leukemia. There was discussion about starting chemotherapy. He did continue to require blood transfusions and platelet transfusions. Patient's respiratory status continued to decline. Patient did not tolerate being weaned off of the BiPAP. His respiratory status continued to decline. And his respiratory distress was related to his acute leukemia. At this point the family wanted to proceed with comfort care. Patient was then admitted to hospice and made comfortable. Patient on 06/22/2016. Please refer to chart for any further details. Patient Condition at Discharge: Stable Plan - Discharge Summary Discharge Medication List Diltiazem Cd [Cardizem CD] 240 mg PO DAILY 07/28/15 [History] Nebivolol HCl [Bystolic] 10 mg PO DAILY 07/28/15 [History] Fluticasone Nasal Taft [Flonase Nasal Taft] 2 spr EA NOSTRIL BID 04/19/16 [ History] Glimepiride [Amaryl] 4 mg PO BID 04/19/16 [History] Multivitamins, Thera [Multivitamin] 1 tab PO DAILY 04/19/16 [History] Omeprazole 20 mg PO BID 04/19/16 [History] Follow up Appointment(s)/Referral(s): Shelley Partida DO [Primary Care Provider] - 1-2 days Discharge Disposition: [facility] TO [facility]
== END 2016-06-22 18:48 | disposition hospice, inpatient (51) | DRG 834 ==
LOC: EC 08:53 → 5ONC 14:52 → OBSVTOIN 14:52 → 6ICU 06-18 01:29
PROVIDERS: ADMIT Internal Medicine; ATTEND Internal Medicine
PROC: 30233R1 Transfusion of Nonautologous Platelets into Peripheral Vein, Percutaneous Approach (ICD-10-PCS; 2016-06-18)
PROC: 30233N1 Transfusion of Nonautologous Red Blood Cells into Peripheral Vein, Percutaneous Approach (ICD-10-PCS; 2016-06-18)
PROC: 07DR3ZX Extraction of Iliac Bone Marrow, Percutaneous Approach, Diagnostic (ICD-10-PCS; principal; 2016-06-19 07:00)
PROC: B548ZZA Ultrasonography of Superior Vena Cava, Guidance (ICD-10-PCS; 2016-06-21)
PROC: 02HV33Z Insertion of Infusion Device into Superior Vena Cava, Percutaneous Approach (ICD-10-PCS; 2016-06-21)
DX: C92.40 Acute promyelocytic leukemia, not having achieved remission (principal); A41.9 Sepsis, unspecified organism; J96.01 Acute respiratory failure with hypoxia; D61.818 Other pancytopenia; E87.2 Acidosis; J38.00 Paralysis of vocal cords and larynx, unspecified; E66.2 Morbid (severe) obesity with alveolar hypoventilation; E86.0 Dehydration; I11.0 Hypertensive heart disease with heart failure; I48.91 Unspecified atrial fibrillation; I50.9 Heart failure, unspecified; E11.9 Type 2 diabetes mellitus without complications; K21.9 Gastro-esophageal reflux disease without esophagitis; M06.9 Rheumatoid arthritis, unspecified; R04.0 Epistaxis; R62.7 Adult failure to thrive; Z51.5 Encounter for palliative care; Z66 Do not resuscitate; Z82.49 Family history of ischemic heart disease and other diseases of the circulatory system; Z85.46 Personal history of malignant neoplasm of prostate; Z85.51 Personal history of malignant neoplasm of bladder; Z85.828 Personal history of other malignant neoplasm of skin; Z91.81 History of falling
CPT/HCPCS: 36415; 36569; 36600; 38221; 70450; 71010; 71020; 76937; 80053; 80202; 80299; 81001; 82150; 82550; 82553; 82607; 82728; 82747; 82805; 83036; 83605; 83615; 83690; 83735; 83880; 83883; 83921; 84100; 84132; 84165; 84484; 84550; 85025; 85045; 85384; 85610; 85730; 86038; 86334; 86431; 86850; 86900; 86901; 86920; 87040; 87086; 87324; 93005; 93306; 94640; 94660; 94760; 96361; 96365; 96374; 99152; 99153; 99285

== ENCOUNTER 2016-06-22 19:02 | Inpatient (IN) | payer MEDICAID ==
[2016-06-22 20:55] VITALS: BP 83/42; PULSE 87; RESP 7
== END 2016-06-22 22:22 | disposition expired | DRG 840 ==
LOC: 6ICU 19:02
PROVIDERS: ADMIT Internal Medicine; ATTEND Internal Medicine
DX: C92.Z0 Other myeloid leukemia not having achieved remission (principal); J96.01 Acute respiratory failure with hypoxia; D61.818 Other pancytopenia; E86.0 Dehydration; J38.00 Paralysis of vocal cords and larynx, unspecified; E87.70 Fluid overload, unspecified; Z66 Do not resuscitate; C92.40 Acute promyelocytic leukemia, not having achieved remission; Z51.5 Encounter for palliative care; G47.33 Obstructive sleep apnea (adult) (pediatric); K52.9 Noninfective gastroenteritis and colitis, unspecified; E11.9 Type 2 diabetes mellitus without complications; R51 Headache; M06.9 Rheumatoid arthritis, unspecified; I67.9 Cerebrovascular disease, unspecified; I10 Essential (primary) hypertension; K21.9 Gastro-esophageal reflux disease without esophagitis; R53.1 Weakness; N42.9 Disorder of prostate, unspecified; Z85.51 Personal history of malignant neoplasm of bladder; Z92.21 Personal history of antineoplastic chemotherapy; Z82.49 Family history of ischemic heart disease and other diseases of the circulatory system; Z80.3 Family history of malignant neoplasm of breast; Z87.01 Personal history of pneumonia (recurrent); Z86.19 Personal history of other infectious and parasitic diseases; Z85.828 Personal history of other malignant neoplasm of skin; Z90.49 Acquired absence of other specified parts of digestive tract; Z79.84 Long term (current) use of oral hypoglycemic drugs; Z79.51 Long term (current) use of inhaled steroids; Z79.899 Other long term (current) drug therapy